=== PATIENT | male | born 1950 | race Caucasian/White ===

== ENCOUNTER 2018-06-08 09:59 | Emergency (ER) | payer MEDICARE ==
[2018-06-08 10:06] VITALS: TEMP 98
--- NOTE | 2018-06-08 10:37 | ED ---
General Adult HPI - General Chief complaint: Upper Respiratory Infection Stated complaint: bronchitis Time Seen by Provider: 06/08/18 10:25 Source: patient Mode of arrival: ambulatory Limitations: no limitations - History of Present Illness Initial comments: 68-year-old male with a history of COPD, hypertension, presents to the emergency department for a chief complaint of cough 3 weeks. Patient states the cough is productive. Patient states he feels as if it is bronchitis. He states he has seen his lung doctor 10 days ago he was told it was bronchitis and given steroids. Patient has also had 2 trials of Levaquin which have not helped. Patient denies any shortness of breath. He denies any chest pain. Patient states he has tried Mucinex at home as well without significant relief. Patient states that he just began coughing up blood-tinged sputum. He states he would like to make sure nothing else is wrong. Patient has no other complaints at this time including shortness of breath, chest pain, abdominal pain, nausea or vomiting, headache, or visual changes. - Related Data Home Medications Medication Instructions Recorded Confirmed predniSONE 5 mg PO PC-SUPPER 10/30/13 06/08/18 Albuterol Sulfate [Proair Hfa] 2 puff INHALATION RT-Q4H PRN 11/28/13 06/08/18 Tiotropium 18 Mcg/Puff [Spiriva] 1 cap INHALATION RT-DAILY 11/28/13 06/08/18 Budesonide-Formot 160-4.5 Mcg 2 puff INHALATION RT-BID 12/29/13 06/08/18 [Symbicort 160-4.5 Mcg Inhaler] Amoxicillin/Potassium Clav 1 tab PO Q12HR 06/08/18 06/08/18 [Augmentin 875-125 Tablet] amLODIPine BESYLATE 5 mg PO PC-SUPPER 06/08/18 06/08/18 Previous Rx's Medication Instructions Recorded Benzonatate [Tessalon Perles] 200 mg PO Q8H PRN #15 capsule 06/08/18 Allergies Allergy/AdvReac Type Severity Reaction Status Date / Time No Known Allergies Allergy Verified 06/08/18 10:27 Review of Systems ROS Statement: Those systems with pertinent positive or pertinent negative responses have been documented in the HPI. ROS Other: All systems not noted in ROS Statement are negative. Past Medical History Past Medical History: COPD, Hypertension, Respiratory Disorder Additional Past Medical History / Comment(s): HX RHEUMATIC FEVER AGE 8-NO PROBLEMS History of Any Multi-Drug Resistant Organisms: None Reported Past Surgical History: Heart Catheterization Additional Past Surgical History / Comment(s): Bilat cataracts Past Anesthesia/Blood Transfusion Reactions: No Reported Reaction Past Psychological History: No Psychological Hx Reported Smoking Status: Former smoker Past Alcohol Use History: Daily Past Drug Use History: None Reported - Past Family History Father Family Medical History: Cancer Mother Family Medical History: Cancer General Exam Limitations: no limitations General appearance: alert, in no apparent distress Head exam: Present: atraumatic, normocephalic, normal inspection Eye exam: Present: normal appearance, PERRL, EOMI. Absent: scleral icterus, conjunctival injection, periorbital swelling ENT exam: Present: normal exam, mucous membranes moist Neck exam: Present: normal inspection, full ROM. Absent: tenderness, meningismus, lymphadenopathy Respiratory exam: Present: decreased breath sounds (Diminished breath sounds bilaterally). Absent: wheezes, rales, rhonchi, stridor, accessory muscle use Cardiovascular Exam: Present: regular rate, normal rhythm, normal heart sounds. Absent: systolic murmur, diastolic murmur, rubs, gallop, clicks GI/Abdominal exam: Present: soft, normal bowel sounds. Absent: distended, tenderness, guarding, rebound, rigid Neurological exam: Present: alert, oriented X3, CN II-XII intact Psychiatric exam: Present: normal affect, normal mood Course Vital Signs 06/08/18 06/08/18 06/08/18 10:01 11:40 11:43 Temperature 98 F Pulse Rate 95 96 Respiratory 18 26 H Rate Blood Pressure 186/88 O2 Sat by Pulse 98 Oximetry 06/08/18 06/08/18 06/08/18 11:47 12:14 12:30 Temperature Pulse Rate 92 81 86 Respiratory 14 16 Rate Blood Pressure O2 Sat by Pulse 96 98 Oximetry 06/08/18 13:00 Temperature Pulse Rate 86 Respiratory 16 Rate Blood Pressure 152/78 O2 Sat by Pulse 95 Oximetry EKG Findings - EKG Comments: EKG Findings:: Normal sinus rhythm, ventricular rate 88, QRS ration 72, QTC [address] elevation or depression Medical Decision Making - Medical Decision Making 68-year-old male with a productive cough 3 weeks. Patient with 2 very minimal shortness of breath. He denies any chest pain. Patient does have a history of COPD. CBC shows a white count of 14.2 which is likely reactive. Lactic acid 1.2. Chest x-ray shows no acute cardiopulmonary process but does show changes associated with COPD. D-dimer 0.32. Pulmonary less than 0.012. Patient was given IV site Medrol which did apparently help with his cough. Patient has already had 2 doses of Levaquin and will not be started on an antibiotic. He is also already been on a steroid taper and is currently still taking prednisone , no significant wheezing noted at this time. 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 He will return here for any worsening symptoms. - Lab Data Result diagrams: 06/08/18 11:25 06/08/18 11:25 Lab Results 06/08/18 06/08/18 06/08/18 Range/Units 11:25 11:25 11:25 WBC 14.2 H (3.8-10.6) k/uL RBC 5.37 (4.30-5.90) m/uL Hgb 17.6 H (13.0-17.5) gm/dL Hct 51.9 (39.0-53.0) % MCV 96.6 (80.0-100.0) fL MCH 32.8 (25.0-35.0) pg MCHC 33.9 (31.0-37.0) g/dL RDW 13.7 (11.5-15.5) % Plt Count 179 (150-450) k/uL Neutrophils % 83 % Lymphocytes % 8 % Monocytes % 7 % Eosinophils % 1 % Basophils % 0 % Neutrophils # 11.8 H (1.3-7.7) k/uL Lymphocytes # 1.1 (1.0-4.8) k/uL Monocytes # 1.0 (0-1.0) k/uL Eosinophils # 0.2 (0-0.7) k/uL Basophils # 0.0 (0-0.2) k/uL PT (9.0-12.0) sec INR (<1.2) APTT (22.0-30.0) sec D-Dimer (<0.60) mg/L FEU Sodium 136 L (137-145) mmol/L Potassium 4.3 (3.5-5.1) mmol/L Chloride 99 (98-107) mmol/L Carbon Dioxide 28 (22-30) mmol/L Anion Gap 9 mmol/L BUN 12 (9-20) mg/dL Creatinine 0.55 L (0.66-1.25) mg/dL Est GFR (CKD-EPI)AfAm >90 (>60 ml/min/1.73 sqM) Est GFR (CKD-EPI)NonAf >90 (>60 ml/min/1.73 sqM) Glucose 98 (74-99) mg/dL Plasma Lactic Acid Keshawn (0.7-2.0) mmol/L Calcium 8.8 (8.4-10.2) mg/dL Magnesium 2.3 (1.6-2.3) mg/dL Total Bilirubin 1.3 (0.2-1.3) mg/dL AST 35 (17-59) U/L ALT 64 (21-72) U/L Alkaline Phosphatase 90 (38-126) U/L Total Creatine Kinase 74 (55-170) U/L CK-MB (CK-2) 1.4 (0.0-2.4) ng/mL CK-MB (CK-2) Rel Index 1.9 Troponin I <0.012 (0.000-0.034) ng/mL Total Protein 6.9 (6.3-8.2) g/dL Albumin 4.0 (3.5-5.0) g/dL 06/08/18 06/08/18 Range/Units 13:00 13:42 WBC (3.8-10.6) k/uL RBC (4.30-5.90) m/uL Hgb (13.0-17.5) gm/dL Hct (39.0-53.0) % MCV (80.0-100.0) fL MCH (25.0-35.0) pg MCHC (31.0-37.0) g/dL RDW (11.5-15.5) % Plt Count (150-450) k/uL Neutrophils % % Lymphocytes % % Monocytes % % Eosinophils % % Basophils % % Neutrophils # (1.3-7.7) k/uL Lymphocytes # (1.0-4.8) k/uL Monocytes # (0-1.0) k/uL Eosinophils # (0-0.7) k/uL Basophils # (0-0.2) k/uL PT 10.3 (9.0-12.0) sec INR 1.0 (<1.2) APTT 24.7 (22.0-30.0) sec D-Dimer 0.32 (<0.60) mg/L FEU Sodium (137-145) mmol/L Potassium (3.5-5.1) mmol/L Chloride (98-107) mmol/L Carbon Dioxide (22-30) mmol/L Anion Gap mmol/L BUN (9-20) mg/dL Creatinine (0.66-1.25) mg/dL Est GFR (CKD-EPI)AfAm (>60 ml/min/1.73 sqM) Est GFR (CKD-EPI)NonAf (>60 ml/min/1.73 sqM) Glucose (74-99) mg/dL Plasma Lactic Acid Keshawn 1.2 (0.7-2.0) mmol/L Calcium (8.4-10.2) mg/dL Magnesium (1.6-2.3) mg/dL Total Bilirubin (0.2-1.3) mg/dL AST (17-59) U/L ALT (21-72) U/L Alkaline Phosphatase (38-126) U/L Total Creatine Kinase (55-170) U/L CK-MB (CK-2) (0.0-2.4) ng/mL CK-MB (CK-2) Rel Index Troponin I (0.000-0.034) ng/mL Total Protein (6.3-8.2) g/dL Albumin (3.5-5.0) g/dL Disposition Clinical Impression: Cough Disposition: HOME SELF-CARE Condition: Good Instructions: Acute Bronchitis (ED), Chronic Bronchitis (ED) Additional Instructions: Please follow-up with your primary care provider or fairground operator in one to 2 days. Please return to the emergency department if you have any worsening symptoms. Prescriptions: Benzonatate [Tessalon Perles] 200 mg PO Q8H PRN #15 capsule PRN Reason: Cough Is patient prescribed a controlled substance at d/c from ED?: No Referrals: Christ Giles MD [Primary Care Provider] - 1-2 days Time of Disposition: 14:57
[2018-06-08] MEDS ORDERED: SODIUM CHLORIDE 0.9% 1,000 ML IV STA (10:48)
[2018-06-08] MEDS ORDERED: IPRATROPIUM-ALBUTEROL 3 ML NEB INHALATION STA (10:50)
[2018-06-08] MEDS ORDERED: methylPREDNISolone SOD SUCCI 125 MG/2 ML VIAL IV STA (10:50)
[2018-06-08 12:12] LABS: Basophils % (A) 0 %; Eosinophils # (A) 0.2 k/uL (0-0.7); Eosinophils % (A) 1 %; HCT 51.9 % (39.0-53.0); HGB 17.6 gm/dL (13.0-17.5); Lymphocytes # (A) 1.1 k/uL (1.0-4.8); Lymphocytes % (A) 8 %; MCH 32.8 pg (25.0-35.0); MCHC 33.9 g/dL (31.0-37.0); MCV 96.6 fL (80.0-100.0); Mean Platelet Volume 7.6; Monocytes % (A) 7 %; Neutrophils # (A) 11.8 k/uL (1.3-7.7); Neutrophils % (A) 83 %; Platelet Count 179 k/uL (150-450); RBC 5.37 m/uL (4.30-5.90); RDW 13.7 % (11.5-15.5); WBC 14.2 k/uL (3.8-10.6)
[2018-06-08 12:14] LABS: ALT 64 U/L (21-72); AST 35 U/L (17-59); Alkaline Phosphatase 90 U/L (38-126); Anion Gap 9 mmol/L; Blood Urea Nitrogen 12 mg/dL (9-20); Calcium 8.8 mg/dL (8.4-10.2); Carbon Dioxide 28 mmol/L (22-30); Chloride 99 mmol/L (98-107); Glucose 98 mg/dL (74-99); Magnesium 2.3 mg/dL (1.6-2.3); Potassium 4.3 mmol/L (3.5-5.1); Sodium 136 mmol/L (137-145); Total Bilirubin 1.3 mg/dL (0.2-1.3); Total Protein 6.9 g/dL (6.3-8.2)
[2018-06-08 12:31] LABS: Creatine Kinase 74 U/L (55-170)
[2018-06-08 12:42] LABS: Creatine Kinase MB 1.4 ng/mL (0.0-2.4)
--- NOTE | 2018-06-08 12:43 | XR ---
EXAMINATION TYPE: XR chest 2V DATE OF EXAM: 06/08/2018 COMPARISON: 06/08/2016 INDICATION: Chest pain, bronchitis TECHNIQUE: Frontal and lateral views of the chest are obtained. FINDINGS: The heart size is normal. The pulmonary vasculature is normal. The lungs are clear. There is hyperinflation flattening the diaphragms compatible COPD. IMPRESSION: 1. COPD. 2. No acute pulmonary process.
[2018-06-08 12:44] LABS: Troponin I <0.012 ng/mL (0.000-0.034)
[2018-06-08 14:06] LABS: D-Dimer 0.32 mg/L FEU (<0.60); Partial Thromboplastin Time 24.7 sec (22.0-30.0); Prothrombin Time 10.3 sec (9.0-12.0)
[2018-06-08 15:20] VITALS: BP 153/84; PULSE 87; RESP 14
== END 2018-06-08 15:25 | disposition home or self-care (01) ==
LOC: EC 09:59
DX: R05 Cough (principal); J44.9 Chronic obstructive pulmonary disease, unspecified; I10 Essential (primary) hypertension; Z79.51 Long term (current) use of inhaled steroids; Z79.899 Other long term (current) drug therapy; Z87.891 Personal history of nicotine dependence; Z95.5 Presence of coronary angioplasty implant and graft
CPT/HCPCS: 36415; 94640; 93005; 85379; 80053; 82550; 82553; 83605; 83735; 84484; 85025; 85610; 85730; 87040; 71046; 99284; 96374; 96361; J2930

== ENCOUNTER → 2018-08-27 | Outpatient (CLI) | payer MEDICARE ==
[2018-08-27 07:53] LABS: ALT 60 U/L (21-72); AST 32 U/L (17-59); Albumin 4.4 g/dL (3.5-5.0); Alkaline Phosphatase 87 U/L (38-126); Anion Gap 8 mmol/L; Blood Urea Nitrogen 14 mg/dL (9-20); Carbon Dioxide 30 mmol/L (22-30); Chloride 98 mmol/L (98-107); Cholesterol 181 mg/dL (<200); Glucose 116 mg/dL (74-99); Potassium 4.7 mmol/L (3.5-5.1); Sodium 136 mmol/L (137-145); Total Bilirubin 0.8 mg/dL (0.2-1.3); Total Protein 7.3 g/dL (6.3-8.2); Triglycerides 48 mg/dL (<150)
[2018-08-27 07:54] LABS: Basophils % (A) 0 %; Eosinophils # (A) 0.1 k/uL (0-0.7); Eosinophils % (A) 1 %; HCT 53.4 % (39.0-53.0); HGB 17.3 gm/dL (13.0-17.5); Lymphocytes # (A) 0.9 k/uL (1.0-4.8); Lymphocytes % (A) 8 %; MCH 31.5 pg (25.0-35.0); MCHC 32.4 g/dL (31.0-37.0); MCV 97.4 fL (80.0-100.0); Mean Platelet Volume 6.3; Monocytes # (A) 0.6 k/uL (0-1.0); Monocytes % (A) 6 %; Neutrophils # (A) 9.5 k/uL (1.3-7.7); Neutrophils % (A) 85 %; Platelet Count 195 k/uL (150-450); RBC 5.48 m/uL (4.30-5.90); RDW 13.4 % (11.5-15.5); WBC 11.1 k/uL (3.8-10.6)
[2018-08-27 09:18] LABS: LDL Cholesterol,Calculated 45 mg/dL (0-99)
[2018-08-27 09:19] LABS: HDL Cholesterol 126 mg/dL (40-60)
--- NOTE | 2018-08-27 11:49 | CT ---
EXAMINATION TYPE: CT chest w con DATE OF EXAM: 08/27/2018 COMPARISON: Prior CT 01/10/2014, chest x-ray 08/17/2018 HISTORY: Enlarged lymph nodes CT DLP: 536.1 mGycm Automated exposure control for dose reduction was used. CONTRAST: CT scan of the chest is performed with IV Contrast, patient injected with 100 mL of Isovue 300. FINDINGS: LUNGS: The lungs are grossly clear, there is no concerning parenchymal mass or nodule identified. Ex tensive centrilobular and paraseptal emphysematous changes are present There is no pleural effusion o r pneumothorax seen. The tracheobronchial tree is patent. MEDIASTINUM: There are no greater than 1 cm hilar or mediastinal lymph nodes. No pericardial effusi on is seen. Large epicardial fat pads are present. AORTA: No additional significant abnormality is seen. There are coronary artery calcifications prese nt. OTHER: Some dependent hyperdensity within the gallbladder may represent small stones. The liver show s low attenuation possibly due to hepatic steatosis. Cortical cyst present at the posterior aspect of the midpole the right kidney measures 2.7 cm IMPRESSION: Emphysema. Possible cholelithiasis. Coronary artery disease. Additional findings above.
== END | disposition home or self-care (01) ==
LOC: RADCTMAIN 07:22
PROVIDERS: ATTEND Internal Medicine
DX: J43.2 Centrilobular emphysema (principal); I25.10 Atherosclerotic heart disease of native coronary artery without angina pectoris; R59.0 Localized enlarged lymph nodes; J44.1 Chronic obstructive pulmonary disease with (acute) exacerbation; I10 Essential (primary) hypertension; R06.02 Shortness of breath
CPT/HCPCS: 84439; 80061; 80053; 84443; 85025; 71260; 36415; Q9967

== ENCOUNTER 2020-04-28 09:40 | Inpatient (IN) | payer MEDICARE ==
[2020-04-28] MEDS ORDERED: methylPREDNISolone SOD SUCCI 125 MG/2 ML VIAL IV STA (09:52)
[2020-04-28] MEDS ORDERED: IPRATROPIUM-ALBUTEROL 3 ML NEB INHALATION STA (09:52)
[2020-04-28] MEDS ORDERED: SODIUM CHLORIDE 0.9% 1,000 ML IV STA (09:52)
--- NOTE | 2020-04-28 09:55 | ED ---
General Adult HPI - General Chief complaint: Shortness of Breath Stated complaint: Dyspnea Time Seen by Provider: 04/28/20 09:47 Source: patient, RN notes reviewed Mode of arrival: ambulatory Limitations: no limitations - History of Present Illness Initial comments: Patient is a pleasant [age]-year-old male presenting to emergency Department with complaints of difficulty in breathing. Onset of symptoms was several days ago, but is getting worse. Patient has been on antibiotics. Patient does have cough with occasional green sputum. No fevers. Patient does have history of similar symptoms previously associated with COPD. No leg pain or leg swelling. - Related Data Home Medications Medication Instructions Recorded Confirmed predniSONE 5 mg PO PC-SUPPER 10/30/13 06/08/18 Albuterol Sulfate [Proair Hfa] 2 puff INHALATION RT-Q4H PRN 11/28/13 06/08/18 Tiotropium 18 Mcg/Puff [Spiriva] 1 cap INHALATION RT-DAILY 11/28/13 06/08/18 Budesonide-Formot 160-4.5 Mcg 2 puff INHALATION RT-BID 12/29/13 06/08/18 [Symbicort 160-4.5 Mcg Inhaler] Amoxicillin/Potassium Clav 1 tab PO Q12HR 06/08/18 06/08/18 [Augmentin 875-125 Tablet] amLODIPine BESYLATE 5 mg PO PC-SUPPER 06/08/18 06/08/18 Previous Rx's Medication Instructions Recorded Benzonatate [Tessalon Perles] 200 mg PO Q8H PRN #15 capsule 06/08/18 Allergies Allergy/AdvReac Type Severity Reaction Status Date / Time No Known Allergies Allergy Verified 04/28/20 09:45 Review of Systems ROS Statement: Those systems with pertinent positive or pertinent negative responses have been documented in the HPI. ROS Other: All systems not noted in ROS Statement are negative. Constitutional: Denies: fever, chills Eyes: Denies: eye pain ENT: Denies: ear pain Respiratory: Reports: cough, dyspnea Cardiovascular: Denies: chest pain Endocrine: Reports: fatigue Gastrointestinal: Denies: abdominal pain Genitourinary: Denies: dysuria Musculoskeletal: Denies: back pain Skin: Denies: rash Neurological: Denies: weakness Past Medical History Past Medical History: COPD, Hypertension, Respiratory Disorder Additional Past Medical History / Comment(s): HX RHEUMATIC FEVER AGE 8-NO PROBLEMS History of Any Multi-Drug Resistant Organisms: None Reported Past Surgical History: Heart Catheterization Additional Past Surgical History / Comment(s): Bilat cataracts Past Anesthesia/Blood Transfusion Reactions: No Reported Reaction Past Psychological History: No Psychological Hx Reported Smoking Status: Former smoker Past Alcohol Use History: Daily Past Drug Use History: None Reported - Past Family History Father Family Medical History: Cancer Mother Family Medical History: Cancer General Exam Limitations: no limitations General appearance: alert, in no apparent distress Head exam: Present: normocephalic Eye exam: Present: normal appearance Neck exam: Present: normal inspection Respiratory exam: Present: respiratory distress, accessory muscle use, decreased breath sounds Cardiovascular Exam: Present: regular rate, normal rhythm GI/Abdominal exam: Present: soft. Absent: tenderness Extremities exam: Present: normal inspection Neurological exam: Present: alert Psychiatric exam: Present: normal affect, normal mood Skin exam: Present: cyanosis Course Vital Signs 04/28/20 04/28/20 04/28/20 09:43 09:58 10:03 Temperature 97.8 F Pulse Rate 80 102 H Respiratory 24 26 H Rate Blood Pressure 167/85 O2 Sat by Pulse 78 L Oximetry 04/28/20 10:09 Temperature Pulse Rate 102 H Respiratory Rate Blood Pressure O2 Sat by Pulse Oximetry - Reevaluation(s) Reevaluation #1: 04/28/20 10:44 Patient does meet sepsis criteria diagnosed at 10:40 AM. Blood culture and lactic acid ordered. IV antibiotics will be ordered. EKG Findings - EKG Comments: EKG Findings:: Sinus tachycardia 104. [place] 1:30. QRS 68. QT 344. QTC 42. Normal axis. Normal QRS. No acute ST change. Medical Decision Making - Medical Decision Making Patient reevaluated and improved with BiPAP. Patient updated on results and plan. Dr. Giles has been paged. - Lab Data Result diagrams: 04/28/20 09:55 04/28/20 09:55 Lab Results 04/28/20 04/28/20 04/28/20 Range/Units 09:55 09:55 09:55 WBC 9.4 (3.8-10.6) k/uL RBC 5.37 (4.30-5.90) m/uL Hgb 16.7 (13.0-17.5) gm/dL Hct 51.7 (39.0-53.0) % MCV 96.3 (80.0-100.0) fL MCH 31.2 (25.0-35.0) pg MCHC 32.4 (31.0-37.0) g/dL RDW 14.4 (11.5-15.5) % Plt Count 156 (150-450) k/uL Neutrophils % 79 % Lymphocytes % 9 % Monocytes % 10 % Eosinophils % 1 % Basophils % 1 % Neutrophils # 7.4 (1.3-7.7) k/uL Lymphocytes # 0.8 L (1.0-4.8) k/uL Monocytes # 0.9 (0-1.0) k/uL Eosinophils # 0.1 (0-0.7) k/uL Basophils # 0.1 (0-0.2) k/uL PT 10.0 (9.0-12.0) sec INR 1.0 (<1.2) APTT 23.6 (22.0-30.0) sec Sodium 130 L (137-145) mmol/L Potassium 4.7 (3.5-5.1) mmol/L Chloride 95 L (98-107) mmol/L Carbon Dioxide 26 (22-30) mmol/L Anion Gap 9 mmol/L BUN 11 (9-20) mg/dL Creatinine 0.55 L (0.66-1.25) mg/dL Est GFR (CKD-EPI)AfAm >90 (>60 ml/min/1.73 sqM) Est GFR (CKD-EPI)NonAf >90 (>60 ml/min/1.73 sqM) Glucose 100 H (74-99) mg/dL Plasma Lactic Acid Keshawn (0.7-2.0) mmol/L Calcium 8.2 L (8.4-10.2) mg/dL Total Bilirubin 1.3 (0.2-1.3) mg/dL AST 40 (17-59) U/L ALT 28 (4-49) U/L Alkaline Phosphatase 74 (38-126) U/L Total Protein 6.6 (6.3-8.2) g/dL Albumin 3.7 (3.5-5.0) g/dL 04/28/20 Range/Units 09:55 WBC (3.8-10.6) k/uL RBC (4.30-5.90) m/uL Hgb (13.0-17.5) gm/dL Hct (39.0-53.0) % MCV (80.0-100.0) fL MCH (25.0-35.0) pg MCHC (31.0-37.0) g/dL RDW (11.5-15.5) % Plt Count (150-450) k/uL Neutrophils % % Lymphocytes % % Monocytes % % Eosinophils % % Basophils % % Neutrophils # (1.3-7.7) k/uL Lymphocytes # (1.0-4.8) k/uL Monocytes # (0-1.0) k/uL Eosinophils # (0-0.7) k/uL Basophils # (0-0.2) k/uL PT (9.0-12.0) sec INR (<1.2) APTT (22.0-30.0) sec Sodium (137-145) mmol/L Potassium (3.5-5.1) mmol/L Chloride (98-107) mmol/L Carbon Dioxide (22-30) mmol/L Anion Gap mmol/L BUN (9-20) mg/dL Creatinine (0.66-1.25) mg/dL Est GFR (CKD-EPI)AfAm (>60 ml/min/1.73 sqM) Est GFR (CKD-EPI)NonAf (>60 ml/min/1.73 sqM) Glucose (74-99) mg/dL Plasma Lactic Acid Keshawn 3.0 H* (0.7-2.0) mmol/L Calcium (8.4-10.2) mg/dL Total Bilirubin (0.2-1.3) mg/dL AST (17-59) U/L ALT (4-49) U/L Alkaline Phosphatase (38-126) U/L Total Protein (6.3-8.2) g/dL Albumin (3.5-5.0) g/dL - Radiology Data Radiology results: image reviewed (Chest x-ray shows COPD changes. Left greater than right basilar infiltrate) Critical Care Time Critical Care Time: Yes Total Critical Care Time: 32 Disposition Clinical Impression: Acute exacerbation of chronic obstructive pulmonary disease, Acute respiratory failure, Pneumonia, Sepsis Disposition: ADMITTED IP TO THIS HOSP Condition: Serious Is patient prescribed a controlled substance at d/c from ED?: No Referrals: Christ Giles MD [Primary Care Provider] - 1-2 days Decision Time: 10:44
[2020-04-28 10:23] LABS: Basophils # (A) 0.1 k/uL (0-0.2); Basophils % (A) 1 %; Eosinophils # (A) 0.1 k/uL (0-0.7); Eosinophils % (A) 1 %; HCT 51.7 % (39.0-53.0); HGB 16.7 gm/dL (13.0-17.5); Lymphocytes # (A) 0.8 k/uL (1.0-4.8); Lymphocytes % (A) 9 %; MCH 31.2 pg (25.0-35.0); MCHC 32.4 g/dL (31.0-37.0); MCV 96.3 fL (80.0-100.0); Mean Platelet Volume 6.9; Monocytes # (A) 0.9 k/uL (0-1.0); Monocytes % (A) 10 %; Neutrophils # (A) 7.4 k/uL (1.3-7.7); Neutrophils % (A) 79 %; Platelet Count 156 k/uL (150-450); RBC 5.37 m/uL (4.30-5.90); RDW 14.4 % (11.5-15.5); WBC 9.4 k/uL (3.8-10.6)
[2020-04-28 10:33] LABS: ALT 28 U/L (4-49); AST 40 U/L (17-59); African American GFR (CKD) >90 (>60 ml/min/1.73 sqM); Albumin 3.7 g/dL (3.5-5.0); Alkaline Phosphatase 74 U/L (38-126); Anion Gap 9 mmol/L; Blood Urea Nitrogen 11 mg/dL (9-20); Calcium 8.2 mg/dL (8.4-10.2); Carbon Dioxide 26 mmol/L (22-30); Chloride 95 mmol/L (98-107); Glucose 100 mg/dL (74-99); Non-African American GFR(CKD) >90 (>60 ml/min/1.73 sqM); Partial Thromboplastin Time 23.6 sec (22.0-30.0); Potassium 4.7 mmol/L (3.5-5.1); Sodium 130 mmol/L (137-145); Total Bilirubin 1.3 mg/dL (0.2-1.3); Total Protein 6.6 g/dL (6.3-8.2)
--- NOTE | 2020-04-28 10:33 | XR ---
EXAMINATION TYPE: XR chest 1V portable DATE OF EXAM: 04/28/2020 COMPARISON: CT chest August 17, 2018. Chest x-ray June 08, 2018. HISTORY: Dyspnea. TECHNIQUE: Single AP portable frontal upright view of the chest is obtained. FINDINGS: There is background chronic emphysematous rate with patchy left greater than right bibasil ar opacities. No pleural effusion or pneumothorax seen bilaterally. The cardiac silhouette size remai ns within normal limits. The osseous structures are intact. IMPRESSION: Background chronic emphysematous change with new left greater than right bibasilar acute infiltrate and/or atelectasis.
[2020-04-28] MEDS ORDERED: AZITHROMYCIN 500 MG in SODIUM CHLORIDE 0.9% 250 ML IVPB STA (10:46)
[2020-04-28] MEDS ORDERED: PNEUMONIA PROTOCOL UTILIZED 1 EACH MISC PO PRN (10:46)
[2020-04-28] MEDS ORDERED: IPRATROPIUM-ALBUTEROL 3 ML NEB INHALATION PRN (10:46)
[2020-04-28] MEDS ORDERED: SODIUM CHLORIDE 0.9% 1,000 ML IV SCH (11:00)
[2020-04-28] MEDS: methylPREDNISolone SOD SUCCI 125 MG/2 ML VIAL IV SCH ×3 (14:58→23:22)
[2020-04-28] MEDS: IPRATROPIUM-ALBUTEROL 3 ML NEB INHALATION SCH ×2 (15:36→15:39)
--- NOTE | 2020-04-28 16:13 | P.CNPUL ---
History of Present Illness Consult date: 04/28/20 Reason for consult: dyspnea, COPD History of present illness: 70-year-old male patient with advanced COPD with an FEV1 of 32% of predicted, maintained on accommodation Symbicort Spiriva and prednisone at 5 mg daily basis for COPD, comes in to the bathroom because of worsening shortness of breath. The patient has been getting worse over this past few days. He has received outpatient antibiotics without any benefits. He had also increased cough and congestion and sputum production that was greenish in nature. Chest x-ray is consistent with COPD. No exposure to coronavirus Covid 19. the white cell count is within normal limits. The patient has some mild lymphopenia. Neck he has level was at 3.0 at time of admission currently down to 1.7. Renal function is stable and within normal limits. Leg swelling. No pleurisy. No hemoptysis. Review of Systems Constitutional: Reports weight gain Eyes: denies as per HPI, denies blurred vision, denies bulging eye, denies decreased vision, denies diplopia, denies discharge, denies dry eye, denies irritation, denies itching, denies pain, denies photophobia, denies loss of peripheral vision, denies loss of vision, denies tunnel vision/blind spots Ears: deny: decreased hearing, ear discharge, earache, tinnitus Ears, nose, mouth and throat: Denies headache, Denies sore throat Breasts: absent: as per HPI, gynecomastia Cardiovascular: Reports decreased exercise tolerance, Reports dyspnea on exertion Respiratory: Reports cough with sputum, Reports dyspnea Gastrointestinal: Reports as per HPI Genitourinary: Reports as per HPI Musculoskeletal: Reports as per HPI Musculoskeletal: absent: ankle pain, ankle stiffness, ankle swelling Integumentary: Reports as per HPI Neurological: Reports as per HPI Psychiatric: Reports as per HPI Endocrine: Reports as per HPI Hematologic/Lymphatic: Reports as per HPI Allergic/Immunologic: Reports as per HPI Past Medical History Past Medical History: COPD, Hypertension, Respiratory Disorder Additional Past Medical History / Comment(s): HX RHEUMATIC FEVER AGE 8-NO PROBLEMS History of Any Multi-Drug Resistant Organisms: None Reported Past Surgical History: Heart Catheterization Additional Past Surgical History / Comment(s): Bilat cataracts Past Anesthesia/Blood Transfusion Reactions: No Reported Reaction Past Psychological History: No Psychological Hx Reported Smoking Status: Former smoker Past Alcohol Use History: Daily Past Drug Use History: None Reported - Past Family History Father Family Medical History: Cancer Additional Family Medical History / Comment(s): liver cancer-pt did not speak to father much. Mother Family Medical History: Cancer Additional Family Medical History / Comment(s): Lung cancer Medications and Allergies Home Medications Medication Instructions Recorded Confirmed Type predniSONE 10 mg PO PC-SUPPER 10/30/13 04/28/20 History Albuterol Sulfate [Proair Hfa] 2 puff INHALATION RT-Q4H PRN 11/28/13 04/28/20 History Tiotropium 18 Mcg/Puff [Spiriva] 1 cap INHALATION RT-DAILY 11/28/13 04/28/20 History Budesonide-Formot 160-4.5 Mcg 2 puff INHALATION RT-BID 12/29/13 04/28/20 History [Symbicort 160-4.5 Mcg Inhaler] amLODIPine BESYLATE 5 mg PO PC-SUPPER 06/08/18 04/28/20 History Azithromycin [Zithromax] 250 mg PO MOWEFR 04/28/20 04/28/20 History Allergies Allergy/AdvReac Type Severity Reaction Status Date / Time No Known Allergies Allergy Verified 04/28/20 11:03 Physical Exam Vitals: Vital Signs Temp Pulse Resp BP BP Pulse Ox 04/28/20 15:47 84 04/28/20 15:41 83 04/28/20 13:15 98.1 F 86 14 118/87 99 04/28/20 12:00 98.1 F 22 117/86 98 04/28/20 11:21 92 13 136/86 100 04/28/20 10:09 102 H 04/28/20 10:03 26 H 04/28/20 09:58 102 H 04/28/20 09:43 97.8 F 80 24 167/85 78 L Intake and Output 04/28/20 04/28/20 04/28/20 06:59 14:59 22:59 Other: Weight 99.79 kg Patient is obese, comfortable not in acute respiratory distress and the patient is not using accessory muscles of breathing Head exam was generally normal. There was no scleral icterus or corneal arcus. Mucous membranes were moist. Neck was supple and without jugular venous distension, thyromegaly, or carotid bruits. Carotids were easily palpable bilaterally. There was no adenopathy. The patient is a Mallampati class IV. Lungs sounds are diminished and the patient has diffuse expiratory wheezes throughout the lung hernández bilaterally and prolongation of exhalation phase of breathing Cardiac exam revealed the PMI to be normally situated and sized. The rhythm was regular and no extrasystoles were noted during several minutes of auscultation. The first and second heart sounds were normal and physiologic splitting of the s econd heart sound was noted. There were no murmurs, rubs, clicks, or gallops. Abdominal exam revealed normal bowel sounds. The abdomen was soft, non-tender, and without masses, organomegaly, or appreciable enlargement of the abdominal aorta. Examination of the extremities revealed easily palpable radial, femoral and pedal pulses. There was no cyanosis, clubbing or edema. Examination of the skin revealed no evidence of significant rashes, suspicious appearing nevi or other concerning lesions. Neurologically, the patient is awake and alert and the patient does not have any focal neurological deficit. Cranial nerves are essentially intact. Results - Laboratory Findings CBC and BMP: 04/28/20 09:55 04/28/20 09:55 PT/INR, D-dimer PT 10.0 sec (9.0-12.0) 04/28/20 09:55 INR 1.0 (<1.2) 04/28/20 09:55 Abnormal lab findings: Abnormal Labs 04/28/20 04/28/20 04/28/20 09:55 09:55 09:55 Lymphocytes # 0.8 L Sodium 130 L Chloride 95 L Creatinine 0.55 L Glucose 100 H Plasma Lactic Acid Keshawn 3.0 H* Calcium 8.2 L - Diagnostic Findings Chest x-ray: image reviewed Assessment and Plan Plan: 1 acute COPD exacerbation. Consider underlying bronchitis and there is no clear indication of pneumonia on today's chest x-ray. The patient was also screened for coronavirus Covid 19 infection. 2 advanced COPD with FEV1 of 32% of predicted and the patient is maintained on a combination of Symbicort Spiriva and prednisone on outpatient basis. 3 obesity 4 hypertension 5 mild CAD with mild pulmonary hypertension based on echocardiogram that was done on 12/29/2013 6 mild lactic acidosis, improving Plan Check this patient for coronavirus Covid 19 nasal swab by PCR Optimize COPD with a combination of DuoNeb neb last treatment [id number], IV Solu Medrol and cover the patient with empiric antibiotic coverage with a combination of Rocephin and Zithromax Obtain sputum Gram stain and culture Chest x-ray was reviewed Heparin subcu for DVT prophylaxis BiPAP overnight to optimize her respiratory status if needed at a pressure of 10/5 We'll continue to follow make further recommendations based on his progress.
[2020-04-28] MEDS: HEPARIN SODIUM,PORCINE 5,000 UNIT/ML 1 ML VIAL SQ SCH ×2 (17:48→23:22)
[2020-04-28 19:50] LABS: Glucose,Whole Blood 155 mg/dL (75-99)
[2020-04-28] MEDS ORDERED: ALBUTEROL HFA INHALER INHALATION PRN (20:02)
[2020-04-28] MEDS: INSULIN ASPART (NovoLOG) 100 UNIT/ML VIAL SQ SCH (20:08)
[2020-04-28] MEDS: ALBUTEROL HFA INHALER INHALATION SCH (20:12)
[2020-04-29 06:04] LABS: Glucose,Whole Blood 146 mg/dL (75-99)
[2020-04-29] MEDS: methylPREDNISolone SOD SUCCI 125 MG/2 ML VIAL IV SCH ×4 (06:06→23:10)
[2020-04-29] MEDS: INSULIN ASPART (NovoLOG) 100 UNIT/ML VIAL SQ SCH ×4 (06:06→22:33)
--- NOTE | 2020-04-29 08:10 | XR ---
EXAMINATION TYPE: XR chest 1V portable DATE OF EXAM: 04/29/2020 CLINICAL HISTORY: Difficulty breathing and pneumonia progress study. TECHNIQUE: Single AP portable upright view of the chest is obtained. COMPARISON: Chest x-ray from one day earlier. CT chest August 27, 2018 FINDINGS: There is background chronic emphysematous change with persistent bibasilar opacities. No p leural effusion or pneumothorax seen bilaterally. The cardiac silhouette size remains within normal l imits. The osseous structures are intact. IMPRESSION: Bibasilar acute infiltrate and/or atelectasis redemonstrated. No significant change from one day earlier.
[2020-04-29] MEDS: AZITHROMYCIN 500 MG TAB PO SCH (09:06)
[2020-04-29] MEDS: HEPARIN SODIUM,PORCINE 5,000 UNIT/ML 1 ML VIAL SQ SCH ×3 (09:06→23:10)
[2020-04-29] MEDS: ALBUTEROL HFA INHALER INHALATION SCH ×4 (09:45→16:58)
[2020-04-29 11:47] LABS: Glucose,Whole Blood 136 mg/dL (75-99)
[2020-04-29] MEDS: TIOTROPIUM 18 MCG/PUFF INHALER INHALATION SCH (12:52)
--- NOTE | 2020-04-29 13:08 | P.PN ---
Subjective Progress Note Date: 04/29/202019, the patient is feeling better and less short of breath compared to yesterday. Awaiting the toney virus Covid 19 testing by PCR. Meanwhile, the patient is feeling better in terms of his COPD exacerbation treatment with a combination of bronchodilators and steroids. No chest pain. No other new complaints otherwise for now. No hemoptysis. No pleurisy. He remains on a combination of Rocephin and Zithromax. He remains on IV Solu Medrol 60 mg every 6 hours. Objective - Vital Signs Vital signs: Vital Signs Temp 97.6 F 04/29/20 09:00 Pulse 82 04/29/20 09:00 Resp 18 04/29/20 09:00 BP 135/79 04/29/20 09:00 Pulse Ox 96 04/29/20 09:00 Intake & Output 04/28/20 04/29/20 04/29/20 18:59 06:59 18:59 Intake Total 300 480 Balance 300 480 Weight 99.79 kg 100.4 kg Intake: Oral 300 480 Other: # Voids 1 - Exam Patient is obese, comfortable not in acute respiratory distress and the patient is not using accessory muscles of breathing Head exam was generally normal. There was no scleral icterus or corneal arcus. Mucous membranes were moist. Neck was supple and without jugular venous distension, thyromegaly, or carotid bruits. Carotids were easily palpable bilaterally. There was no adenopathy. The patient is a Mallampati class IV. Lungs sounds are diminished and the patient has diffuse expiratory wheezes throughout the lung hernández bilaterally and prolongation of exhalation phase of breathing Cardiac exam revealed the PMI to be normally situated and sized. The rhythm was regular and no extrasystoles were noted during several minutes of auscultation. The first and second heart sounds were normal and physiologic splitting of the second heart sound was noted. There were no murmurs, rubs, clicks, or gallops. Abdominal exam revealed normal bowel sounds. The abdomen was soft, non-tender, and without masses, organomegaly, or appreciable enlargement of the abdominal aorta. Examination of the extremities revealed easily palpable radial, femoral and pedal pulses. There was no cyanosis, clubbing or edema. Examination of the skin revealed no evidence of significant rashes, suspicious appearing nevi or other concerning lesions. Neurologically, the patient is awake and alert and the patient does not have any focal neurological deficit. Cranial nerves are essentially intact. - Labs CBC & Chem 7: 04/28/20 09:55 04/28/20 09:55 Labs: Abnormal Lab Results - Last 24 Hours (Table) 04/28/20 04/29/20 04/29/20 Range/Units 19:48 06:03 11:45 POC Glucose (mg/dL) 155 H 146 H 136 H (75-99) mg/dL Microbiology - Last 24 Hours (Table) 04/28/20 09:55 Blood Culture - Preliminary Blood No Growth after 24 hours Assessment and Plan Plan: 1 acute COPD exacerbation. Consider underlying bronchitis and there is no clear indication of pneumonia on today's chest x-ray. The patient was also screened for coronavirus Covid 19 infection. 2 advanced COPD with FEV1 of 32% of predicted and the patient is maintained on a combination of Symbicort Spiriva and prednisone on outpatient basis. 3 obesity 4 hypertension 5 mild CAD with mild pulmonary hypertension based on echocardiogram that was done on 12/29/2013 6 mild lactic acidosis, improving Plan Check this patient for coronavirus Covid 19 nasal swab by PCR, the results are still pending for now Optimize COPD with a combination of DuoNeb neb last treatment [id number], IV Solu Medrol and cover the patient with empiric antibiotic coverage with a combination of Rocephin and Zithromax No need for BiPAP at this point in time We'll continue to follow make further recommendations based on his progress.
--- NOTE | 2020-04-29 14:35 | P.HPIM ---
History of Present Illness This is a pleasant 70 years old male with past medical history of COPD and hypertension, is a patient of Dr. Powell who is his photo retoucher and primary care doctor. Presents with days of progressive dyspnea and cough with green ph legm. Denies chest pain. No myalgia or arthralgia. On the presentation he is afebrile, tachycardic at 102, tachypneic and 26, saturating 100% on BiPAP, he was saturating 65% and 3 L oxygen via nasal cannula CBC is unremarkable, he has leukopenia of 0.8, however this is a chronic. Sodium is 1:30, creatinine is normal 0.5, elevated lactic acid 3.0 came back to normal at 1.7, liver enzymes not elevated. Troponin is negative at less than 0.012. Chest x-ray:L chronic emphysematous change with a new left greater than right basilar acute infiltrate and/or atelectasis EKG showing sinus tachycardia at [address]-T changes. In the emergency room he was started on Zithromax and ceftriaxone Review of Systems CONSTITUTIONAL: No fever, no malaise, no fatigue. HEENT: No recent visual problems or hearing problems. Denied any sore throat. CARDIOVASCULAR: No orthopnea, PND, no palpitations, no syncope. PULMONARY: No chest wall tenderness, no hemoptysis. GASTROINTESTINAL: No diarrhea, no nausea, no vomiting, no abdominal pain. Normoactive bowel sounds. NEUROLOGICAL: No headaches, no weakness, no numbness. HEMATOLOGICAL: Denies any bleeding or petechiae. GENITOURINARY: Denies any burning micturition, frequency, or urgency. MUSCULOSKELETAL/RHEUMATOLOGICAL: Denies any joint pain, swelling, or any muscle pain. ENDOCRINE: Denies any polyuria or polydipsia. Past Medical History Past Medical History: COPD, Hypertension, Respiratory Disorder Additional Past Medical History / Comment(s): HX RHEUMATIC FEVER AGE 8-NO PROBLEMS History of Any Multi-Drug Resistant Organisms: None Reported Past Surgical History: Heart Catheterization Additional Past Surgical History / Comment(s): Bilat cataracts Past Anesthesia/Blood Transfusion Reactions: No Reported Reaction Past Psychological History: No Psychological Hx Reported Smoking Status: Former smoker Past Alcohol Use History: Daily Past Drug Use History: None Reported - Past Family History Father Family Medical History: Cancer Mother Family Medical History: Cancer Medications and Allergies Home Medications Medication Instructions Recorded Confirmed Type predniSONE 10 mg PO PC-SUPPER 10/30/13 04/28/20 History Albuterol Sulfate [Proair Hfa] 2 puff INHALATION RT-Q4H PRN 11/28/13 04/28/20 History Tiotropium 18 Mcg/Puff [Spiriva] 1 cap INHALATION RT-DAILY 11/28/13 04/28/20 History Budesonide-Formot 160-4.5 Mcg 2 puff INHALATION RT-BID 12/29/13 04/28/20 History [Symbicort 160-4.5 Mcg Inhaler] amLODIPine BESYLATE 5 mg PO PC-SUPPER 06/08/18 04/28/20 History Azithromycin [Zithromax] 250 mg PO MOWEFR 04/28/20 04/28/20 History Allergies Allergy/AdvReac Type Severity Reaction Status Date / Time No Known Allergies Allergy Verified 04/28/20 11:03 Physical Exam Vitals: Vital Signs Temp Pulse Resp BP Pulse Ox 04/28/20 11:21 92 13 136/86 100 04/28/20 10:09 102 H 04/28/20 10:03 26 H 04/28/20 09:58 102 H 04/28/20 09:43 97.8 F 80 24 167/85 78 L Intake and Output 04/27/20 04/28/20 04/28/20 22:59 06:59 14:59 Other: Weight 99.79 kg GENERAL: The patient is alert and oriented x3, not in any acute distress. Well developed, well nourished. HEENT: Pupils are round and equally reacting to light. EOMI. No scleral icterus. No conjunctival pallor. Normocephalic, atraumatic. No pharyngeal erythema. No thyromegaly. CARDIOVASCULAR: S1 and S2 present. No murmurs, rubs, or gallops. -PULMONARY: Chest is clear to auscultation, bilateral expiratory wheezing with decreased air entry on both sides ABDOMEN: Soft, nontender, nondistended, normoactive bowel sounds. No palpable organomegaly. MUSCULOSKELETAL: No joint swelling or deformity. EXTREMITIES: No cyanosis, clubbing, or pedal edema. NEUROLOGICAL: Gross neurological examination did not reveal any focal deficits. SKIN: No rashes. No petechiae Results CBC & Chem 7: 04/28/20 09:55 10/30/20 09:55 Labs: Abnormal Lab Results - Last 24 Hours (Table) 04/28/20 04/28/20 04/28/20 Range/Units 09:55 09:55 09:55 Lymphocytes # 0.8 L (1.0-4.8) k/uL Sodium 130 L (137-145) mmol/L Chloride 95 L (98-107) mmol/L Creatinine 0.55 L (0.66-1.25) mg/dL Glucose 100 H (74-99) mg/dL Plasma Lactic Acid Keshawn 3.0 H* (0.7-2.0) mmol/L Calcium 8.2 L (8.4-10.2) mg/dL Assessment and Plan Assessment: Acute COPD exacerbation with possible pneumonia Possible bilateral basilar opacity, suspicious for pneumonia versus atelectasis acute hypoxic respiratory failure Hypertension Plan: This is a pleasant 70 years old male who presents with acute COPD, pulmonary consult, bronchodilator, steroids and oxygen as needed. Labs and medication were reviewed.. Continue same treatment. Continue with symptomatic treatment. Resume home medication. Monitor lytes and vitals. DVT and GI prophylaxis. Further recommendations depends on the clinical course of the patient DVT prophylaxis: Subcutaneous heparin GI Prophylaxis: Pepcid
[2020-04-29 16:50] LABS: Glucose,Whole Blood 108 mg/dL (75-99)
[2020-04-29] MEDS: amLODIPine 5 MG TAB PO SCH (17:41)
[2020-04-29] MEDS ORDERED: BUDESONIDE 0.5 MG/2 ML NEBU INHALATION SCH (20:00)
[2020-04-29] MEDS ORDERED: FLUTICASONE 110 MCG INHALER INHALATION SCH (20:00)
[2020-04-29] MEDS: SYMBICORT 160-4.5 MCG INHALER INHALATION SCH (20:10)
[2020-04-29] MEDS ORDERED: ALBUTEROL HFA INHALER INHALATION PRN (20:12)
[2020-04-29 20:48] LABS: Glucose,Whole Blood 133 mg/dL (75-99)
[2020-04-30] MEDS: methylPREDNISolone SOD SUCCI 125 MG/2 ML VIAL IV SCH (06:06)
[2020-04-30] MEDS: INSULIN ASPART (NovoLOG) 100 UNIT/ML VIAL SQ SCH ×2 (06:06→12:17)
[2020-04-30 06:23] LABS: Glucose,Whole Blood 129 mg/dL (75-99)
[2020-04-30 07:37] LABS: Basophils % (A) 0 %; Eosinophils % (A) 0 %; HCT 50.6 % (39.0-53.0); HGB 16.6 gm/dL (13.0-17.5); Lymphocytes # (A) 0.3 k/uL (1.0-4.8); Lymphocytes % (A) 2 %; MCH 31.7 pg (25.0-35.0); MCHC 32.7 g/dL (31.0-37.0); MCV 96.8 fL (80.0-100.0); Mean Platelet Volume 7.2; Monocytes # (A) 0.7 k/uL (0-1.0); Monocytes % (A) 5 %; Neutrophils # (A) 13.7 k/uL (1.3-7.7); Neutrophils % (A) 92 %; Platelet Count 188 k/uL (150-450); RBC 5.23 m/uL (4.30-5.90); WBC 14.8 k/uL (3.8-10.6)
[2020-04-30 07:48] LABS: African American GFR (CKD) >90 (>60 ml/min/1.73 sqM); Anion Gap 8 mmol/L; Blood Urea Nitrogen 21 mg/dL (9-20); Calcium 8.3 mg/dL (8.4-10.2); Carbon Dioxide 28 mmol/L (22-30); Chloride 94 mmol/L (98-107); Glucose 136 mg/dL (74-99); Non-African American GFR(CKD) >90 (>60 ml/min/1.73 sqM); Potassium 4.2 mmol/L (3.5-5.1); Sodium 130 mmol/L (137-145)
[2020-04-30] MEDS: SYMBICORT 160-4.5 MCG INHALER INHALATION SCH (09:14)
[2020-04-30] MEDS: TIOTROPIUM 18 MCG/PUFF INHALER INHALATION SCH (09:14)
[2020-04-30] MEDS ORDERED: predniSONE 20 MG TAB PO SCH (10:15)
[2020-04-30] MEDS: AZITHROMYCIN 500 MG TAB PO SCH (10:22)
[2020-04-30] MEDS: HEPARIN SODIUM,PORCINE 5,000 UNIT/ML 1 ML VIAL SQ SCH ×2 (10:22→12:17)
--- NOTE | 2020-04-30 10:56 | P.PN ---
Subjective Progress Note Date: 04/29/20 Principal diagnosis: Acute COPD exacerbation This is a pleasant 70 years old male with past medical history of COPD and hypertension, is a patient of Dr. Powell who is his spanish medical interpreter and primary care doctor. Presents with days of progressive dyspnea and cough with green phlegm. Denies chest pain. No myalgia or arthralgia. On the presentation he is afebrile, tachycardic at 102, tachypneic and 26, saturating 100% on BiPAP, he was saturating 65% and 3 L oxygen via nasal cannula CBC is unremarkable, he has leukopenia of 0.8, however this is a chronic. Sodium is 1:30, creatinine is normal 0.5, elevated lactic acid 3.0 came back to normal at 1.7, liver enzymes not elevated. Troponin is negative at less than 0.012. Chest x-ray:L chronic emphysematous change with a new left greater than right basilar acute infiltrate and/or atelectasis EKG showing sinus tachycardia at [address]-T changes. In the emergency room he was started on Zithromax and ceftriaxone 04/29/2020 Patient is currently sitting on the side of the bed comfortably. Still having exertional dyspnea and expiratory wheezing on examination. No complaints of chest pain. Cough and sputum production is improving. Patient is being continued on Solu-Medrol and written treatments along with antibiotics in the form of ceftriaxone and azithromycin. Continue with oxygen therapy. Pulmonary is following. Patient has been afebrile. Denied any complaints of chest pain. No nausea vomiting or abdominal pain or diarrhea. All other review of systems negative except the above Current medications reviewed. Objective - Vital Signs Vital signs: Vital Signs Temp 98 F 04/29/20 19:45 Pulse 68 04/29/20 19:45 Resp 18 04/29/20 19:45 BP 134/77 04/29/20 19:45 Pulse Ox 95 04/29/20 19:45 Intake & Output 04/29/20 04/29/20 04/30/20 06:59 18:59 05:59 Intake Total 840 Balance 840 Weight 100.4 kg Intake: Oral 840 Other: # Voids 1 - Exam PHYSICAL EXAMINATION: Patient is lying in the bed comfortably, no acute distress, awake alert and oriented.. HEENT: Normocephalic. Neck is supple. Pupils reactive. Nostrils clear. Oral cavity is moist. Ears reveal no drainage. Neck reveals no JVD, carotid bruits, or thyromegaly. CHEST EXAMINATION: Trachea is central. Symmetrical expansion. Bilateral diffuse expiratory wheezing and scattered rhonchi. CARDIAC: Normal S1, S2 with no gallops. No murmurs ABDOMEN: Soft. Bowel sounds normal. No organomegaly. No abdominal bruits. Extremities: reveal no edema. No clubbing or cyanosis Neurologically awake, alert, oriented x3 with well-coordinated movements. No focal deficits noted Skin: No rash or skin lesions. Psychiatric: Coperative. Nonsuicidal Musculoskeletal: No joint swelling or deformity. Normal range of motion. - Labs CBC & Chem 7: 04/30/20 06:39 04/30/20 06:39 Labs: Abnormal Lab Results - Last 24 Hours (Table) 04/29/20 04/29/20 04/29/20 Range/Units 06:03 11:45 16:48 POC Glucose (mg/dL) 146 H 136 H 108 H (75-99) mg/dL 04/29/20 Range/Units 20:20 POC Glucose (mg/dL) 133 H (75-99) mg/dL Microbiology - Last 24 Hours (Table) 04/29/20 12:56 Sputum Culture - Preliminary Sputum 04/28/20 09:55 Blood Culture - Preliminary Blood No Growth after 24 hours Assessment and Plan Assessment: Acute COPD exacerbation with possible pneumonia Possible bilateral basilar opacity, suspicious for pneumonia versus atelectasis acute hypoxic respiratory failure and was on BiPAP on admission. Advanced COPD with FEV1 of 32% of predicted. Hypertension DVT prophylaxis with heparin subcu Plan: Patient be continued on oxygen therapy, methylprednisolone and antibodies in the form of ceftriaxone and azithromycin. Continue with albuterol and long-acting antimuscarinic agents. Continue Symbicort and follow closely. Pulmonary is on board. Anticipate discharge in next 24 hours with more improvement.
[2020-04-30 11:33] LABS: Glucose,Whole Blood 109 mg/dL (75-99)
[2020-04-30 11:49] VITALS: BP 162/88; PULSE 77; RESP 15; TEMP 97.9
[2020-04-30] MEDS: amLODIPine 5 MG TAB PO SCH (12:17)
--- NOTE | 2020-04-30 13:13 | P.PN ---
Subjective Progress Note Date: 04/30/20 70-year-old male patient admitted to the hospital for an acute COPD exacerbation. The patient is much improved for now. Is not having any major respiratory difficulties. He thinks that he is back to his baseline. He is maintained on a combination of respiratory event and Symbicort on outpatient basis and the patient follows up in our office in regards to COPD. He'll be completing a course of prednisone burst taper course of Zithromax on outpatient basis. No chest pain. No fever. No chills.: The coronavirus covid 19 testing was done and the results are still pending for now. Nevertheless, the we had a low suspicion for coronary risk overnight and infection this patient. Objective - Vital Signs Vital signs: Vital Signs Temp 97.9 F 04/30/20 08:00 Pulse 77 04/30/20 08:00 Resp 15 04/30/20 08:00 BP 162/88 04/30/20 08:00 Pulse Ox 93 L 04/30/20 08:00 Intake & Output 04/29/20 04/30/20 04/30/20 19:59 06:59 18:59 Intake Total 540 Balance 540 Weight Intake: Oral 540 Other: # Voids 1 - Exam Patient is obese, comfortable not in acute respiratory distress and the patient is not using accessory muscles of breathing Head exam was generally normal. There was no scleral icterus or corneal arcus. Mucous membranes were moist. Neck was supple and without jugular venous distension, thyromegaly, or carotid bruits. Carotids were easily palpable bilaterally. There was no adenopathy. The patient is a Mallampati class IV. Lungs sounds are diminished and the patient has diffuse expiratory wheezes throughout the lung hernández bilaterally and prolongation of exhalation phase of breathing Cardiac exam revealed the PMI to be normally situated and sized. The rhythm was regular and no extrasystoles were noted during several minutes of auscultation. The first and second heart sounds were normal and physiologic splitting of the second heart sound was noted. There were no murmurs, rubs, clicks, or gallops. Abdominal exam revealed normal bowel sounds. The abdomen was soft, non-tender, and without masses, organomegaly, or appreciable enlargement of the abdominal aorta. Examination of the extremities revealed easily palpable radial, femoral and pedal pulses. There was no cyanosis, clubbing or edema. Examination of the skin revealed no evidence of significant rashes, suspicious appearing nevi or other concerning lesions. Neurologically, the patient is awake and alert and the patient does not have any focal neurological deficit. Cranial nerves are essentially intact. - Labs CBC & Chem 7: 04/30/20 06:39 04/30/20 06:39 Labs: Abnormal Lab Results - Last 24 Hours (Table) 04/29/20 04/29/20 04/30/20 Range/Units 16:48 20:20 06:06 WBC (3.8-10.6) k/uL Neutrophils # (1.3-7.7) k/uL Lymphocytes # (1.0-4.8) k/uL Sodium (137-145) mmol/L Chloride (98-107) mmol/L BUN (9-20) mg/dL Creatinine (0.66-1.25) mg/dL Glucose (74-99) mg/dL POC Glucose (mg/dL) 108 H 133 H 129 H (75-99) mg/dL Calcium (8.4-10.2) mg/dL 04/30/20 04/30/20 04/30/20 Range/Units 06:39 06:39 11:32 WBC 14.8 H (3.8-10.6) k/uL Neutrophils # 13.7 H (1.3-7.7) k/uL Lymphocytes # 0.3 L (1.0-4.8) k/uL Sodium 130 L (137-145) mmol/L Chloride 94 L (98-107) mmol/L BUN 21 H (9-20) mg/dL Creatinine 0.64 L (0.66-1.25) mg/dL Glucose 136 H (74-99) mg/dL POC Glucose (mg/dL) 109 H (75-99) mg/dL Calcium 8.3 L (8.4-10.2) mg/dL Microbiology - Last 24 Hours (Table) 04/28/20 09:55 Blood Culture - Preliminary Blood No Growth after 48 hours 04/29/20 12:56 Gram Stain - Preliminary Sputum Sputum Culture - Preliminary Assessment and Plan Plan: 1 acute COPD exacerbation. Consider underlying bronchitis and there is no clear indication of pneumonia on today's chest x-ray. The patient was also screened for coronavirus Covid 19 infection. 2 advanced COPD with FEV1 of 32% of predicted and the patient is maintained on a combination of Symbicort Spiriva and prednisone on outpatient basis. 3 obesity 4 hypertension 5 mild CAD with mild pulmonary hypertension based on echocardiogram that was done on 12/29/2013 6 mild lactic acidosis, improving Plan Check this patient for coronavirus Covid 19 nasal swab by PCR, the results are still pending for now Meanwhile, the patient can be discharged home on a course of Z-Ricardo and a prednisone burst taper starting with 40 mg to be tapered by 10 g every 4 days. Outpatient medications will be resumed and Change Which Included a Combination of Spiriva and Symbicort. We'll up with Us in the Office. Continue the DuoNeb Nebulized Treatment [facility] As Needed. If the Covid 19 testing is positive, the patient will be contacted back.
--- NOTE | 2020-05-02 06:44 | CDI ---
Documentation Clarification Form Date: 05/02/2020 06:28:00 AM From: Samantha Marin Phone: If you have a question about this query, please contact Belle Reddy Packaging Inspector at [phone] between 8am and 5pm. Admit Date: 04/28/2020 10:47:00 AM Patient Name: Franco Duque Visit Number: [id number] Discharge Date: 04/30/2020 12:39:00 PM ATTENTION: The Clinical Documentation Specialists (CDI) and [facility] Coding Staff appreciate your assistance in clarifying documentation. Please respond to the clarification below the line at the bottom and electronically sign. The CDI & [facility] Coding staff will review the response and follow-up if needed. Please note: Queries are made part of the Legal Health Record. If you have any questions, please contact the author of this message via ITS. Dr. Joanna Bernabe Patient's Covid serology was pending at time of discharge. Patients serology came back as detected for Coronovirus. Please clarify if patient had Coronovirus, pneumonia and sepsis as documented in the ED report. Patient history/risk factors: history of smoking, COPD exacerbation, CAD, HTN Clinical Indicators: Patient is 78% on RA CXR: right infiltrate Lactic acid: 3. Viral Panel: Detected Coronovirus Vital Signs: 97.8 F, 80 bpm, 24, 167/85, 78% RA Treatment:bronchodilator, steroids and oxygen as needed. Consult: pulmonary consult dUOnEB IV solumedrol Rocephin and Zithromax In order to capture the severity of condition, please clarify if the above treatment/clinical indicators signify: COVID-19 with pneumonia and sepsis COVID-19 ruled out COVID-19 confirmed with pneumonia no sepsis Covid confirmed without pneumonia and sepsis Other, please specify Unable to determine not my documentation MTDD
--- NOTE | 2020-05-10 05:45 | CDI ---
Documentation Clarification Form Date: 05/02/2020 06:28:00 AM From: Samantha Marin Phone: If you have a question about this query, please contact Belle Reddy Food And Beverage Checker at [phone] between 8am and 5pm. Admit Date: 04/28/2020 10:47:00 AM Patient Name: Franco Duque Visit Number: [id number] Discharge Date: 04/30/2020 12:39:00 PM ATTENTION: The Clinical Documentation Specialists (CDI) and [facility] Coding Staff appreciate your assistance in clarifying documentation. Please respond to the clarification below the line at the bottom and electronically sign. The CDI & [facility] Coding staff will review the response and follow-up if needed. Please note: Queries are made part of the Legal Health Record. If you have any questions, please contact the author of this message via ITS. Dr. Oritz E Sheet Patient's Covid serology was pending at time of discharge. Patients serology came back as detected for Coronovirus. Please clarify if patient had Coronovirus, pneumonia and sepsis as documented in the ED report. Patient history/risk factors: history of smoking, COPD exacerbation, CAD, HTN Clinical Indicators: Patient is 78% on RA CXR: right infiltrate Lactic acid: 3. Viral Panel: Detected Coronovirus Vital Signs: 97.8 F, 80 bpm, 24, 167/85, 78% RA Treatment:bronchodilator, steroids and oxygen as needed. Consult: pulmonary consult dUOnEB IV solumedrol Rocephin and Zithromax In order to capture the severity of condition, please clarify if the above treatment/clinical indicators signify: COVID-19 with pneumonia and sepsis COVID-19 ruled out COVID-19 confirmed with pneumonia no sepsis Covid confirmed without pneumonia and sepsis Other, please specify Unable to determine as per last pulmonary note on 04/30 ( here is no clear indication of pneumonia on today's chest x-ray) . when i saw there was no diagnosis of covid at that time , later on his covid test came back positive indicating apparently pt has positive covid infection. please refer to discharge summary and last pulmonary notes for more details . MTDD
--- NOTE | 2020-05-14 23:39 | P.DS ---
Providers Date of admission: 04/28/20 10:47 Expected date of discharge: 04/30/20 Attending physician: Joanna Bernabe Consults: 04/28/20 10:46 Consult Physician Routine Consulting Provider: Jeremy Park Consult Reason/Comments: Respiratory failure Do you want consulting provider notified?: Already Contacted Primary care physician: Christ [facility] Course: Discharge diagnosis Acute COPD exacerbation with possible pneumonia Possible bilateral basilar opacity, suspicious for pneumonia versus atelectasis. r/o Covid 19. report pending. acute hypoxic respiratory failure and was on BiPAP on admission. Advanced COPD with FEV1 of 32% of predicted. Hypertension DVT prophylaxis with heparin subcu Hospital course This is a pleasant 70 years old male with past medical history of COPD and hypertension, is a patient of Dr. Powell who is his faculty research physician and primary care doctor. Presents with days of progressive dyspnea and cough with green phlegm. Denies chest pain. No myalgia or arthralgia. On the presentation he is afebrile, tachycardic at 102, tachypneic and 26, saturating 100% on BiPAP, he was saturating 65% and 3 L oxygen via nasal cannula CBC is unremarkable, he has leukopenia of 0.8, however this is a chronic. Sodium is 1:30, creatinine is normal 0.5, elevated lactic acid 3.0 came back to normal at 1.7, liver enzymes not elevated. Troponin is negative at less than 0.012. Chest x-ray:L chronic emphysematous change with a new left greater than right basilar acute infiltrate and/or atelectasis EKG showing sinus tachycardia at [address]-T changes. In the emergency room he was started on Zithromax and ceftriaxone 04/29/2020 Patient is currently sitting on the side of the bed comfortably. Still having exertional dyspnea and expiratory wheezing on examination. No complaints of chest pain. Cough and sputum production is improving. Patient is being continued on Solu-Medrol and written treatments along with antibiotics in the f orm of ceftriaxone and azithromycin. Continue with oxygen therapy. Pulmonary is following. Patient has been afebrile. Denied any complaints of chest pain. No nausea vomiting or abdominal pain or diarrhea. All other review of systems negative except the above. 04/30/2020 Patient is awake alert oriented x3. Shortness of breath is much improved today. Continued on IV steroids and breathing treatments and antibiotics. Patient wishes to be discharged home. Suspected COVID-19 infection and results are pending at this time. Patient is cleared from pulmonary standpoint. PHYSICAL EXAMINATION: Patient is lying in the bed comfortably, no acute distress, awake alert and oriented.. HEENT: Normocephalic. Neck is supple. Pupils reactive. Nostrils clear. Oral cavity is moist. Ears reveal no drainage. Neck reveals no JVD, carotid bruits, or thyromegaly. CHEST EXAMINATION: Trachea is central. Symmetrical expansion. minimal expiratory wheezing and no rhonchi. CARDIAC: Normal S1, S2 with no gallops. No murmurs ABDOMEN: Soft. Bowel sounds normal. No organomegaly. No abdominal bruits. Extremities: reveal no edema. No clubbing or cyanosis Neurologically awake, alert, oriented x3 with well-coordinated movements. No focal deficits noted Skin: No rash or skin lesions. Psychiatric: Coperative. Nonsuicidal Musculoskeletal: No joint swelling or deformity. Normal range of motion. Vital Signs Temp 97.9 F 04/30/20 08:00 Pulse 77 04/30/20 08:00 Resp 15 04/30/20 08:00 BP 162/88 04/30/20 08:00 Pulse Ox 93 L 04/30/20 08:00 Intake & Output 04/29/20 04/30/20 04/30/20 19:59 06:59 18:59 Intake Total 540 Balance 540 Weight Intake: Oral 540 Other: # Voids 1 Patient Condition at Discharge: Serious Plan - Discharge Summary Discharge Rx Participant: No New Discharge Prescriptions: New predniSONE See Taper PO DIRECTED #30 tab Azithromycin [Zithromax] 500 mg PO DAILY 7 Days #7 tab Continue predniSONE 10 mg PO PC-SUPPER Tiotropium 18 Mcg/Puff [Spiriva] 1 cap INHALATION RT-DAILY Albuterol Sulfate [Proair Hfa] 2 puff INHALATION RT-Q4H PRN PRN Reason: Shortness Of Breath Budesonide-Formot 160-4.5 Mcg [Symbicort 160-4.5 Mcg Inhaler] 2 puff INHALATION RT-BID amLODIPine BESYLATE 5 mg PO PC-SUPPER Discontinued Azithromycin [Zithromax] 250 mg PO MOWEFR Discharge Medication List predniSONE 10 mg PO PC-SUPPER 10/30/13 [History] Albuterol Sulfate [Proair Hfa] 2 puff INHALATION RT-Q4H PRN 11/28/13 [History] Tiotropium 18 Mcg/Puff [Spiriva] 1 cap INHALATION RT-DAILY 11/28/13 [History] Budesonide-Formot 160-4.5 Mcg [Symbicort 160-4.5 Mcg Inhaler] 2 puff INHALATION RT-BID 12/29/13 [History] amLODIPine BESYLATE 5 mg PO PC-SUPPER 06/08/18 [History] Azithromycin [Zithromax] 500 mg PO DAILY 7 Days #7 tab 04/30/20 [Rx] predniSONE See Taper PO DIRECTED #30 tab 04/30/20 [Rx] Follow up Appointment(s)/Referral(s): Christ Giles MD [Primary Care Provider] - 1-2 days (Offices are closed at this time. Please call FRIDAY to make a follow up appoinment.) Patient Instructions/Handouts: COPD (Chronic Obstructive Pulmonary Disease) (DC) Activity/Diet/Wound Care/Special Instructions: COPD When to call your provider: Shortness of breath, wheezing, or trouble breathing that does not improve with rest and treatment Increase in the amount of mucus production Mucus that is yellow, green, bloody or smelly. Fever or chills Tightness in your chest that does not go away with your normal medication An irregular heartbeat or feeling that our heart is racing Trouble talking without shortness of breath Feeling increased lightheadedness or dizziness Feeling of doom Skin that is blue, mckay, or purple in color. Weight loss, poor appetite, weakness, and fatigue What you can do to help manage your condition: Quit smoking Take your medications as directed. Prevent infection; wash your hands often, avoid crowds, get a flu shot Manage stress Do breathing and coughing exercises Stay active Eat a healthy diet Discharge Disposition: HOME SELF-CARE
== END 2020-04-30 12:39 | disposition home or self-care (01) | DRG 177 ==
LOC: EC 09:40 → 3SCARD 10:47
PROVIDERS: ADMIT Hospitalist; ATTEND Hospitalist
DX: U07.1 COVID-19 (principal); J12.89 Other viral pneumonia; J96.01 Acute respiratory failure with hypoxia; J44.0 Chronic obstructive pulmonary disease with (acute) lower respiratory infection; J44.1 Chronic obstructive pulmonary disease with (acute) exacerbation; E87.2 Acidosis; D72.810 Lymphocytopenia; I10 Essential (primary) hypertension; Z79.51 Long term (current) use of inhaled steroids; Z79.52 Long term (current) use of systemic steroids; Z80.0 Family history of malignant neoplasm of digestive organs; Z80.1 Family history of malignant neoplasm of trachea, bronchus and lung; Z87.891 Personal history of nicotine dependence; Z98.42 Cataract extraction status, left eye; Z98.41 Cataract extraction status, right eye; I25.10 Atherosclerotic heart disease of native coronary artery without angina pectoris; E66.9 Obesity, unspecified; Z68.30 Body mass index [BMI] 30.0-30.9, adult
CPT/HCPCS: 36415; 71045; 80048; 80053; 83605; 84484; 85025; 85610; 85730; 87040; 87070; 87205; 93005; 94640; 94660; 96361; 96365; 96366; 96368; 96375; 99291

== ENCOUNTER 2021-06-13 10:45 | Inpatient (IN) | payer MEDICARE ==
--- NOTE | 2021-06-13 11:33 | XR ---
EXAMINATION TYPE: XR chest 1V portable DATE OF EXAM: 06/13/2021 COMPARISON: 04/29/2020 HISTORY: Shortness of breath TECHNIQUE: Single frontal view of the chest is obtained. FINDINGS: There is background chronic emphysematous change with persistent bibasilar opacities. No p leural effusion or pneumothorax seen bilaterally. The cardiac silhouette size remains within normal l imits. The osseous structures are intact. IMPRESSION: COPD with stable bibasilar infiltrate.
[2021-06-13 11:50] LABS: Prothrombin Time 10.3 sec (9.0-12.0)
[2021-06-13] MEDS ORDERED: DEXAMETHASONE SOD PHOSPHATE 10 MG/ML 1 ML VIAL IV STA (11:52)
[2021-06-13] MEDS ORDERED: IPRATROPIUM 0.5 MG/2.5 ML NEBU INHALATION STA (11:52)
[2021-06-13] MEDS ORDERED: ALBUTEROL NEBULIZED 2.5 MG/3 ML INHALATION STA (11:52)
[2021-06-13 11:57] LABS: African American GFR (CKD) >90 (>60 ml/min/1.73 sqM); Anion Gap 9 mmol/L; Basophils # (A) 0.1 k/uL (0-0.2); Basophils % (A) 1 %; Blood Urea Nitrogen 13 mg/dL (9-20); Calcium 8.4 mg/dL (8.4-10.2); Carbon Dioxide 27 mmol/L (22-30); Chloride 95 mmol/L (98-107); Eosinophils # (A) 0.1 k/uL (0-0.7); Eosinophils % (A) 1 %; Glucose 97 mg/dL (74-99); HCT 52.5 % (39.0-53.0); HGB 17.3 gm/dL (13.0-17.5); Lymphocytes # (A) 0.6 k/uL (1.0-4.8); Lymphocytes % (A) 5 %; MCH 32.1 pg (25.0-35.0); MCV 97.4 fL (80.0-100.0); Magnesium 2.2 mg/dL (1.6-2.3); Mean Platelet Volume 6.9; Monocytes # (A) 0.9 k/uL (0-1.0); Monocytes % (A) 8 %; Neutrophils # (A) 9.8 k/uL (1.3-7.7); Neutrophils % (A) 84 %; Non-African American GFR(CKD) >90 (>60 ml/min/1.73 sqM); Platelet Count 171 k/uL (150-450); Potassium 4.7 mmol/L (3.5-5.1); RBC 5.39 m/uL (4.30-5.90); RDW 14.4 % (11.5-15.5); Sodium 131 mmol/L (137-145); WBC 11.6 k/uL (3.8-10.6)
--- NOTE | 2021-06-13 11:57 | ED ---
General Adult HPI - General Chief complaint: Shortness of Breath Stated complaint: SOB Time Seen by Provider: 06/13/21 10:53 Source: patient Mode of arrival: EMS Limitations: no limitations - History of Present Illness Initial comments: Dictation was produced using [employer]Jam dictation software. please excuse any grammatical, word or spelling errors. Chief Complaint: 71-year-old male past nuchal history of COPD presents emergency department for hypoxia and dyspnea History of Present Illness: Patient is a 71-year-old male is brought in by EMS for hypoxia and dyspnea. EMS was called because patient has been feeling dyspneic for the last 3 days. He does not wear oxygen at home. According EMS patient was hypoxic on initial evaluation with a pulse oximeter reading of 80%. Is placed on 6 L nasal cannula which improved his oxygen level to 86%. Patient is placed on nonrebreather improvement 90 percents. Patient denies any chest pain. Denies any lower extremity symptoms. No history of blood clots. Denies any fever. No cough no sore throat or runny nose. The ROS documented in this emergency department record has been reviewed and confirmed by me. Those systems with pertinent positive or negative responses have been documented in the HPI. All other systems are other negative and/or noncontributory. PHYSICAL EXAM: General Impression: Alert and oriented x3, not in acute distress HEENT: Normocephalic atraumatic, extra-ocular movements intact, pupils equal and reactive to light bilaterally, mucous membranes moist. Cardiovascular: Heart regular rate and rhythm Chest: 3 word sentences, mild rib retractions, tachypneic, diminished lung sounds Abdomen: abdomen soft, non-tender, non-distended, no organomegaly Musculoskeletal: Pulses present and equal in all extremities, no peripheral edema Motor: no focal deficits noted Neurological: CN II-XII grossly intact, no focal motor or sensory deficits noted Skin: Intact with no visualized rashes Psych: Normal affect and mood ED course: 71-year-old male presents emergency department for dyspnea and hypoxia. Vital signs upon arrival shows 97% on 4 L is gave, rest of vital signs within acceptable limits. Laboratory evaluation obtained. CBC, coag panel is unremarkable. D-dimer 0.42. Metabolic panel shows a 131. Coronal virus is negative. Chest x-ray shows no acute processes. Patient reevaluated at bedside after breathing treatment with improvement of his exchange with auscultation of the lungs. Patient will be admitted for a COPD exacerbation and hypoxic respiratory failure. Pulmonology on consult. Case discussed Dr. Bernabe was went except patient's care. EKG interpretation: Ventricular rate 100, normal sinus rhythm,. Interval 134, QRS 60, QTC 428. No TX prolongation, no QTC prolongation, no ST or T-wave changes noted.. Overall, this EKG is unremarkable - Related Data Home Medications Medication Instructions Recorded Confirmed Albuterol Sulfate [Proair Hfa] 2 puff INHALATION RT-Q4H PRN 11/28/13 06/13/21 Tiotropium 18 Mcg/Puff [Spiriva] 1 cap INHALATION RT-DAILY 11/28/13 06/13/21 Budesonide-Formot 160-4.5 Mcg 2 puff INHALATION RT-BID 12/29/13 06/13/21 [Symbicort 160-4.5 Mcg Inhaler] amLODIPine BESYLATE 5 mg PO HS 06/08/18 06/13/21 Levofloxacin [Levaquin] 500 mg PO HS 06/13/21 06/13/21 predniSONE 5 mg PO HS 06/13/21 06/13/21 predniSONE See Taper PO DAILY 06/13/21 06/13/21 Allergies Allergy/AdvReac Type Severity Reaction Status Date / Time No Known Allergies Allergy Verified 06/13/21 11:47 Review of Systems ROS Statement: Those systems with pertinent positive or pertinent negative responses have been documented in the HPI. ROS Other: All systems not noted in ROS Statement are negative. Past Medical History Past Medical History: COPD, Hypertension, Respiratory Disorder Additional Past Medical History / Comment(s): HX RHEUMATIC FEVER AGE 8-NO PROBLEMS History of Any Multi-Drug Resistant Organisms: None Reported Past Surgical History: Heart Catheterization Additional Past Surgical History / Comment(s): Bilat cataracts Past Anesthesia/Blood Transfusion Reactions: No Reported Reaction Past Psychological History: No Psychological Hx Reported Smoking Status: Former smoker Past Alcohol Use History: Daily Past Drug Use History: None Reported - Past Family History Father Family Medical History: Cancer Additional Family Medical History / Comment(s): liver cancer-pt did not speak to father much. Mother Family Medical History: Cancer Additional Family Medical History / Comment(s): Lung cancer General Exam Limitations: no limitations Course Vital Signs 06/13/21 06/13/21 06/13/21 10:48 11:07 11:53 Temperature 98.0 F Pulse Rate 100 105 H Respiratory 18 18 Rate Blood Pressure 136/92 154/97 O2 Sat by Pulse 100 97 97 Oximetry 06/13/21 13:09 Temperature Pulse Rate 121 H Respiratory Rate Blood Pressure O2 Sat by Pulse Oximetry Medical Decision Making - Lab Data Result diagrams: 06/13/21 11:24 06/13/21 11:24 Lab Results 06/13/21 06/13/21 06/13/21 Range/Units 11:23 11:24 11:24 WBC 11.6 H (3.8-10.6) k/uL RBC 5.39 (4.30-5.90) m/uL Hgb 17.3 (13.0-17.5) gm/dL Hct 52.5 (39.0-53.0) % MCV 97.4 (80.0-100.0) fL MCH 32.1 (25.0-35.0) pg MCHC 33.0 (31.0-37.0) g/dL RDW 14.4 (11.5-15.5) % Plt Count 171 (150-450) k/uL MPV 6.9 Neutrophils % 84 % Lymphocytes % 5 % Monocytes % 8 % Eosinophils % 1 % Basophils % 1 % Neutrophils # 9.8 H (1.3-7.7) k/uL Lymphocytes # 0.6 L (1.0-4.8) k/uL Monocytes # 0.9 (0-1.0) k/uL Eosinophils # 0.1 (0-0.7) k/uL Basophils # 0.1 (0-0.2) k/uL PT 10.3 (9.0-12.0) sec INR 1.0 (<1.2) APTT 26.0 (22.0-30.0) sec D-Dimer 0.42 (<0.60) mg/L FEU Sodium (137-145) mmol/L Potassium (3.5-5.1) mmol/L Chloride (98-107) mmol/L Carbon Dioxide (22-30) mmol/L Anion Gap mmol/L BUN (9-20) mg/dL Creatinine (0.66-1.25) mg/dL Est GFR (CKD-EPI)AfAm (>60 ml/min/1.73 sqM) Est GFR (CKD-EPI)NonAf (>60 ml/min/1.73 sqM) Glucose (74-99) mg/dL Calcium (8.4-10.2) mg/dL Magnesium (1.6-2.3) mg/dL NT-Pro-B Natriuret Pep pg/mL Coronavirus (PCR) Not Detected (Not Detectd) 06/13/21 06/13/21 Range/Units 11:24 11:24 WBC (3.8-10.6) k/uL RBC (4.30-5.90) m/uL Hgb (13.0-17.5) gm/dL Hct (39.0-53.0) % MCV (80.0-100.0) fL MCH (25.0-35.0) pg MCHC (31.0-37.0) g/dL RDW (11.5-15.5) % Plt Count (150-450) k/uL MPV Neutrophils % % Lymphocytes % % Monocytes % % Eosinophils % % Basophils % % Neutrophils # (1.3-7.7) k/uL Lymphocytes # (1.0-4.8) k/uL Monocytes # (0-1.0) k/uL Eosinophils # (0-0.7) k/uL Basophils # (0-0.2) k/uL PT (9.0-12.0) sec INR (<1.2) APTT (22.0-30.0) sec D-Dimer (<0.60) mg/L FEU Sodium 131 L (137-145) mmol/L Potassium 4.7 (3.5-5.1) mmol/L Chloride 95 L (98-107) mmol/L Carbon Dioxide 27 (22-30) mmol/L Anion Gap 9 mmol/L BUN 13 (9-20) mg/dL Creatinine 0.63 L (0.66-1.25) mg/dL Est GFR (CKD-EPI)AfAm >90 (>60 ml/min/1.73 sqM) Est GFR (CKD-EPI)NonAf >90 (>60 ml/min/1.73 sqM) Glucose 97 (74-99) mg/dL Calcium 8.4 (8.4-10.2) mg/dL Magnesium 2.2 (1.6-2.3) mg/dL NT-Pro-B Natriuret Pep 182 pg/mL Coronavirus (PCR) (Not Detectd) Critical Care Time Critical Care Time: Yes Total Critical Care Time: 33 Disposition Clinical Impression: COPD exacerbation, Acute respiratory failure with hypoxia Disposition: ADMITTED IP TO THIS HOSP Condition: Critical Referrals: Christ Giles MD [Primary Care Provider] - 1-2 days
[2021-06-13] MEDS ORDERED: AZITHROMYCIN 500 MG TAB PO ONE (13:30)
[2021-06-13] MEDS ORDERED: IPRATROPIUM-ALBUTEROL 3 ML NEB INHALATION PRN (18:29)
[2021-06-13] MEDS ORDERED: ALPRAZolam 0.25 MG TAB PO PRN (18:29)
--- NOTE | 2021-06-13 19:08 | HP ---
HISTORY AND PHYSICAL DATE OF SERVICE: 06/13/2021. CHIEF COMPLAINT: Shortness of breath. HISTORY OF PRESENT ILLNESS: This 71-year-old gentleman with past medical history of COPD, hypertension, history of respiratory disorder, history of rheumatic fever, being followed by Dr. Giles in the outpatient setting, was complaining of increased shortness of breath for the last several days. The patient also had some white sputum. Patient was hypoxic, and the patient came to [facility] and was admitted for further evaluation and treatment. The chest x-ray showed some bibasilar prominence which has been present from the previous chest x-rays, and previous CT scan also showed possible bullous emphysema, predominantly upper lobe. The patient is being admitted for COPD, acute exacerbation, with acute hypoxic respiratory failure at this time. The pulse ox was 80% on room air. There is no history of any fever, rigor or chills at this time. PAST MEDICAL HISTORY: COPD, hypertension, history of respiratory failure, history of rheumatic fever as a child. MEDICATIONS: Prednisone, Norvasc, Spiriva, Levaquin, Symbicort, albuterol. Doses are reviewed. ALLERGIES: NONE. FAMILY HISTORY: History of liver cancer apparently. SOCIAL HISTORY: Previous history of smoking. Occasional alcohol intake. REVIEW OF SYSTEMS: ENT: No diminished hearing. No diminished vision. CARDIOVASCULAR SYSTEM: No angina, palpitations. RESPIRATORY SYSTEM: As mentioned earlier. GI: No nausea, vomiting, diarrhea. : No dysuria, retention. NERVOUS SYSTEM: No numbness, weakness. ALLERGY/IMMUNOLOGY: No asthma or hay fever. MUSCULOSKELETAL: As mentioned earlier. HEMATOLOGY/ONCOLOGY: No history of anemia. ENDOCRINE: No history of diabetes or hypothyroidism. CONSTITUTIONAL: As mentioned earlier. DERMATOLOGY: Negative. RHEUMATOLOGY: Negative. PSYCHIATRY: As mentioned earlier. PHYSICAL EXAMINATION: Patient is alert, oriented x3. Pulse is 115, blood pressure 166/97, respiration 20, temperature normal, pulse ox 97% on 4 L. HEENT: Conjunctivae normal. NECK: No jugular venous distention. CARDIOVASCULAR: S1, S2 muffled. RESPIRATION: Breath sounds diminished at the bases extensively. A few scattered rhonchi heard in the bases. ABDOMEN: Soft, nontender. No mass palpable. LEGS: No edema. No swelling. NERVOUS SYSTEM: Higher functions as mentioned earlier. Moves all 4 limbs. No focal motor or sensory deficit. LYMPHATICS: No lymph node palpable in neck, axillae or groin. SKIN: No ulcer, rash, bleeding. JOINTS: No active deforming arthropathy. LABS: Labs at this time show WBC 11.6, hemoglobin 17.6, sodium 131, potassium 4.7. ASSESSMENT: 1. Chronic obstructive pulmonary disease, acute exacerbation, with acute purulent tracheobronchitis with acute hypoxic respiratory failure. 2. Increased white count. 3. Hyponatremia. 4. 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 5. History of rheumatic fever. 6. History of cardiac catheterization. 7. Remote history of nicotine dependence. 8. History of ETOH. RECOMMENDATIONS AND DISCUSSION: In this 71-year-old gentleman who presented with multiple complex medical issues, we will monitor the patient closely, continue the current medications, continue symptomatic treatment. Otherwise at this time I recommend intensive bronchodilators, steroids, empiric antibiotics. Consultation with Dr. Dunn. Resume the home medications. DVT prophylaxis. Proton pump inhibitors. Prognosis is guarded because of multiple complex medical issues. Further recommendations to follow. COVID-19 has been negative. A copy of this dictation is being forwarded to Dr. Giles, who is the primary physician. MMODL / IJN: [id number] /
[2021-06-13] MEDS: methylPREDNISolone SOD SUCCI 125 MG/2 ML VIAL IV SCH (20:12)
[2021-06-13] MEDS: IPRATROPIUM-ALBUTEROL 3 ML NEB INHALATION SCH ×2 (20:27→20:29)
[2021-06-13] MEDS: SYMBICORT 160-4.5 MCG INHALER INHALATION SCH (20:28)
[2021-06-13] MEDS: amLODIPine 5 MG TAB PO SCH (22:42)
[2021-06-13] MEDS: HEPARIN SODIUM,PORCINE/PF 5,000 UNIT/0.5 ML SYRINGE SQ SCH (22:42)
[2021-06-14] MEDS: methylPREDNISolone SOD SUCCI 125 MG/2 ML VIAL IV SCH ×4 (00:31→18:11)
[2021-06-14 06:41] LABS: Basophils % (A) 0 %; Eosinophils % (A) 0 %; Lymphocytes # (A) 0.3 k/uL (1.0-4.8); Lymphocytes % (A) 3 %; MCH 32.7 pg (25.0-35.0); MCHC 33.4 g/dL (31.0-37.0); MCV 97.9 fL (80.0-100.0); Mean Platelet Volume 7.2; Monocytes # (A) 0.2 k/uL (0-1.0); Monocytes % (A) 2 %; Neutrophils # (A) 9.4 k/uL (1.3-7.7); Neutrophils % (A) 95 %; Platelet Count 163 k/uL (150-450); RBC 5.21 m/uL (4.30-5.90); RDW 14.4 % (11.5-15.5); WBC 9.8 k/uL (3.8-10.6)
[2021-06-14 07:52] LABS: Appearance,Urine Clear (Clear); Bilirubin,Urine Negative (Negative); Blood,Urine Negative (Negative); Color,Urine Yellow; Glucose,Urine (UA) 2+ (Negative); Leukocyte Esterase,Urine Negative (Negative); Nitrite,Urine Negative (Negative); PH, Urine 5.5 (5.0-8.0); Protein,Urine Trace (Negative); Specific Gravity,Urine 1.029 (1.001-1.035); Urobilinogen,Urine <2.0 mg/dL (<2.0)
[2021-06-14] MEDS: IPRATROPIUM-ALBUTEROL 3 ML NEB INHALATION SCH ×4 (07:52→20:41)
[2021-06-14] MEDS: SYMBICORT 160-4.5 MCG INHALER INHALATION SCH ×2 (07:52→20:41)
[2021-06-14 07:59] LABS: Ketones,Urine 3+ (Negative)
[2021-06-14 08:21] LABS: Glucose,Whole Blood 160 mg/dL (75-99)
[2021-06-14] MEDS: AZITHROMYCIN 500 MG TAB PO SCH (08:25)
[2021-06-14] MEDS: PANTOPRAZOLE 40 MG TABLET PO SCH (08:25)
[2021-06-14] MEDS: HEPARIN SODIUM,PORCINE/PF 5,000 UNIT/0.5 ML SYRINGE SQ SCH ×2 (08:26→20:52)
[2021-06-14] MEDS ORDERED: predniSONE 20 MG TAB PO SCH (09:00)
[2021-06-14 10:07] LABS: African American GFR (CKD) 127.3 (60.0-200.0); Albumin 3.9 g/dL (3.8-4.9); Albumin/Globulin Ratio 1.77 (1.60-3.17); Anion Gap 14.9 mmol/L (10.00-18.00); Blood Urea Nitrogen 17.5 mg/dL (9.0-27.0); Calcium 8.6 mg/dL (8.7-10.3); Carbon Dioxide 24.1 mmol/L (20.0-27.5); Globulin 2.2 g/dL (1.6-3.3); Non-African American GFR(CKD) 109.8 (60.0-200.0); Total Bilirubin 0.7 mg/dL (0.30-1.20); Total Protein 6.1 g/dL (6.2-8.2)
--- NOTE | 2021-06-14 11:37 | P.CNPUL ---
History of Present Illness Consult date: 06/14/21 Requesting physician: Joanna Bernabe Reason for consult: dyspnea, cough, COPD, hypoxemia, abnormal CXR/CT Chief complaint: Shortness of breath, wheezing, cough. History of present illness: Pulmonary consult dated 06/14/2021. 71-year-old male with history of well established COPD. He sees one of my partners in the office for his COPD. He is brought into the emergency room, on June 13, by EMS, for shortness of breath, and low saturations. His been feeling sick for about 3-4 days. The patient states that he has cough, wheezing, chest tightness, and occasional phlegm production. Apparently when EMS arrived, his saturations were in the low 80s. He was placed on 6 L nasal cannula, and his saturations improved up to 86%. He denies any fever or chills. He denies any chest pain or chest discomfort. The patient's currently on 4 L nasal cannula. He's not receiving any IV fluids. CBC shows a white count of 9.8, hemoglobin 17, hematocrit 51, and platelet count 163,000. Sodium 132, potassium 5, chlorides 93, CO2 24, anion gap 15, BUN 18, creatinine 0.5. Glucose is 149. Urine is negative. Coronavirus testing was negative. Chest x- ray shows changes of COPD, and some basilar atelectasis and/or infiltrates. Review of Systems REVIEW OF SYSTEMS: CONSTITUTIONAL: [Negative.] NEUROLOGIC: [ Negative.] HEENT: [ Negative.] CARDIAC: [Negative.] PULMONARY: Shortness of breath, chest tightness, cough, wheezing, and occasional phlegm production. GI: [Negative.] : [Negative.] RHEUMATOLOGIC: [ Negative.] IMMUNOLOGIC: [ Negative.] ENDOCRINE: [Negative. ] DERMATOLOGIC: [Negative.] Past Medical History Past Medical History: COPD, Hypertension, Respiratory Disorder Additional Past Medical History / Comment(s): HX RHEUMATIC FEVER AGE 8-NO PROBLEMS History of Any Multi-Drug Resistant Organisms: None Reported Past Surgical History: Heart Catheterization Additional Past Surgical History / Comment(s): Bilat cataracts Past Anesthesia/Blood Transfusion Reactions: No Reported Reaction Smoking Status: Former smoker - Past Family History Father Family Medical History: Cancer Additional Family Medical History / Comment(s): liver cancer-pt did not speak to father much. Mother Family Medical History: Cancer Additional Family Medical History / Comment(s): Lung cancer Medications and Allergies Home Medications Medication Instructions Recorded Confirmed Type Albuterol Sulfate [Proair Hfa] 2 puff INHALATION RT-Q4H PRN 11/28/13 06/13/21 History Tiotropium 18 Mcg/Puff [Spiriva] 1 cap INHALATION RT-DAILY 11/28/13 06/13/21 History Budesonide-Formot 160-4.5 Mcg 2 puff INHALATION RT-BID 12/29/13 06/13/21 History [Symbicort 160-4.5 Mcg Inhaler] amLODIPine BESYLATE 5 mg PO HS 06/08/18 06/13/21 History Levofloxacin [Levaquin] 500 mg PO HS 06/13/21 06/13/21 History predniSONE 5 mg PO HS 06/13/21 06/13/21 History predniSONE See Taper PO DAILY 06/13/21 06/13/21 History Allergies Allergy/AdvReac Type Severity Reaction Status Date / Time No Known Allergies Allergy Verified 06/13/21 11:47 Physical Exam Osteopathic Statement: *. No significant issues noted on an osteopathic structural exam other than those noted in the History and Physical/Consult. Vitals: Vital Signs Temp Pulse Pulse Resp BP BP Pulse Ox 06/14/21 08:02 85 06/14/21 07:52 80 06/14/21 02:00 97.1 F L 85 20 138/79 96 06/13/21 20:40 90 06/13/21 20:29 84 06/13/21 20:00 97.9 F 89 20 140/74 100 06/13/21 16:36 101 H 20 123/70 98 06/13/21 14:13 115 H 20 167/97 97 06/13/21 13:42 114 H 06/13/21 13:19 117 H 06/13/21 13:09 121 H 06/13/21 11:53 105 H 18 154/97 97 Intake and Output 06/13/21 06/14/21 06/14/21 22:59 06:59 14:59 Intake Total 500 Balance 500 Intake: Oral 500 Other: Voiding Method Urinal # Voids 4 Weight 102.058 kg No acute distress, oriented 3. Sitting at the bedside. 4 L nasal O2. Saturations 96%. HEENT examination is grossly unremarkable. Neck supple. Full range of motion. No adenopathy thyromegaly or neck vein distention. Cardiovascular examination reveals regular rhythm rate. S1-S2 normal. No S3 or S4. No discernible murmur noted. Heart sounds are distant. Heart rate 89 bpm. Lungs reveal bilateral expiratory rhonchi and expiratory wheezes. No crackles. There is prolongation on forced maneuver. The patient coughs on forced maneuver. Adventitious lung sounds are more prominent on forced maneuver. Abdomen soft bowel sounds are heard. No masses or tenderness. Extremities are intact. No cyanosis clubbing or edema. Skin is without rash or lesion. Neurologic examination is brief but nonfocal. Results - Laboratory Findings CBC and BMP: 06/14/21 05:13 06/14/21 05:13 PT/INR, D-dimer PT 10.3 sec (9.0-12.0) 06/13/21 11:24 INR 1.0 (<1.2) 06/13/21 11:24 D-Dimer 0.42 mg/L FEU (<0.60) 06/13/21 11:24 Abnormal lab findings: Abnormal Labs 06/13/21 06/13/21 06/14/21 11:24 11:24 05:13 WBC 11.6 H Neutrophils # 9.8 H 9.4 H Lymphocytes # 0.6 L 0.3 L Sodium 131 L Chloride 95 L Creatinine 0.63 L BUN/Creatinine Ratio Glucose POC Glucose (mg/dL) Calcium Total Protein Urine Protein Urine Glucose (UA) Urine Ketones 06/14/21 06/14/21 06/14/21 05:13 06:20 08:20 WBC Neutrophils # Lymphocytes # Sodium 132 L Chloride 93 L Creatinine 0.5 L BUN/Creatinine Ratio 35.00 H Glucose 149 H POC Glucose (mg/dL) 160 H Calcium 8.6 L Total Protein 6.1 L Urine Protein Trace H Urine Glucose (UA) 2+ H Urine Ketones 3+ H - Diagnostic Findings Chest x-ray: image reviewed Assessment and Plan Assessment: Acute exacerbation of COPD, complicated by either purulent tracheobronchitis or bronchopneumonia. Prior history of heavy tobacco use. History of hypertension. Plan: Plan dated 06/14/2021. The patient should get Solu-Medrol 60 mg IV push, every 6 hours, and a combination of both albuterol sulfate and ipratropium bromide 4 times a day and when necessary. In addition, the patient's on Symbicort 160/4.5, 2 puffs twice a day. The patient's also getting Zithromax, and ceftriaxone. If not or ready done, a pro-calcitonin level should be done. The patient looks to be relatively stable. Hoping for quick turnaround and possible discharge in the next day or 2. No additional recommendations are made at this time. Time with Patient: Greater than 30
[2021-06-14 12:43] LABS: Glucose,Whole Blood 144 mg/dL (75-99)
[2021-06-14 12:59] VITALS: RESP 18
[2021-06-14] MEDS: INSULIN ASPART (NovoLOG) 100 UNIT/ML VIAL SQ SCH ×3 (13:13→20:51)
[2021-06-14 17:27] LABS: Glucose,Whole Blood 122 mg/dL (75-99)
--- NOTE | 2021-06-14 18:09 | PN ---
PROGRESS NOTE DATE OF SERVICE: 06/14/2021 This 71-year-old gentleman who was admitted with COPD, acute exacerbation, and acute purulent tracheobronchitis is being closely monitored. No chest pain. No palpitations. No fever. PHYSICAL EXAMINATION: Alert and oriented x3. Pulse is 89, blood pressure 133/80, respiration 18, temperature 97.2, pulse ox 98% on 4 L. HEENT: Conjunctivae normal. NECK: No jugular venous distention. CARDIOVASCULAR: S1, S2 muffled. RESPIRATION: Breath sounds diminished at the bases. Scattered rhonchi and crackles. ABDOMEN: Soft. NERVOUS SYSTEM: No focal deficit. LAB STUDIES: WBC 9.2, hemoglobin 17. Sodium 132. UA noted. ASSESSMENT: 1. Chronic obstructive pulmonary disease, acute exacerbation, with acute purulent tracheobronchitis and acute hypoxic respiratory failure, present on admission. 2. Increased white count. 3. Hyponatremia. 4. Possible bullous emphysema, predominantly upper lobe. 5. History of rheumatic fever. 6. History of cardiac catheterization. 7. Remote history of nicotine dependence. 8. History of ETOH. RECOMMENDATIONS AND DISCUSSION: I recommend to continue current medications, continue with the monitoring, symptomatic treatment. Continue with the bronchodilators. Continue with empiric antibiotics. Continue steroids. Closely monitor. Follow closely with Pulmonary, Dr. Dunn. Further recommendations to follow. Prognosis guarded. MMODL / IJN: [id number] /
[2021-06-14 20:01] LABS: Glucose,Whole Blood 133 mg/dL (75-99)
[2021-06-14] MEDS: amLODIPine 5 MG TAB PO SCH (20:52)
[2021-06-15] MEDS: methylPREDNISolone SOD SUCCI 125 MG/2 ML VIAL IV SCH ×2 (00:34→05:14)
[2021-06-15 05:24] VITALS: BP 124/77; TEMP 97.3
[2021-06-15 07:31] LABS: Glucose,Whole Blood 125 mg/dL (75-99)
[2021-06-15] MEDS: SYMBICORT 160-4.5 MCG INHALER INHALATION SCH (09:11)
[2021-06-15] MEDS: IPRATROPIUM-ALBUTEROL 3 ML NEB INHALATION SCH ×2 (09:11→11:28)
[2021-06-15] MEDS: INSULIN ASPART (NovoLOG) 100 UNIT/ML VIAL SQ SCH (10:26)
[2021-06-15] MEDS: AZITHROMYCIN 500 MG TAB PO SCH (10:26)
[2021-06-15] MEDS: HEPARIN SODIUM,PORCINE/PF 5,000 UNIT/0.5 ML SYRINGE SQ SCH (10:26)
[2021-06-15] MEDS: PANTOPRAZOLE 40 MG TABLET PO SCH (10:26)
--- NOTE | 2021-06-15 12:19 | P.PN ---
Subjective Progress Note Date: 06/15/21 Principal diagnosis: COPD exacerbation 71-year-old male with history of well established COPD. He sees one of my partners in the office for his COPD. He is brought into the emergency room, on June 13, by EMS, for shortness of breath, and low saturations. His been feeling sick for about 3-4 days. The patient states that he has cough, wheezing, chest tightness, and occasional phlegm production. Apparently when EMS arrived, his saturations were in the low 80s. He was placed on 6 L nasal cannula, and his saturations improved up to 86%. He denies any fever or chills. He denies any chest pain or chest discomfort. The patient's currently on 4 L nasal cannula. He's not receiving any IV fluids. CBC shows a white count of 9.8, hemoglobin 17, hematocrit 51, and platelet count 163,000. Sodium 132, potassium 5, chlorides 93, CO2 24, anion gap 15, BUN 18, creatinine 0.5. Glucose is 149. Urine is negative. Coronavirus testing was negative. Chest x- ray shows changes of COPD, and some basilar atelectasis and/or infiltrates. The patient is seen today 06/15/2021 in follow-up on the regular medical floor. He is awake and alert in no acute distress. He is breathing quite a bit better today compared to yesterday. He does qualify for home oxygen with O2 satu rations in the low to mid 80s on room air with exertion. Recovers up into the 90s on 2 L/m per nasal cannula. Blood glucose 125. He is continued on DuoNeb inhalations, Symbicort, IV Solu-Medrol. Heparin for DVT prophylaxis. Empiric antibiotics in the form of azithromycin. Objective - Vital Signs Vital signs: Vital Signs Temp 97.3 F L 06/15/21 05:00 Pulse 82 06/15/21 11:42 Resp 18 06/15/21 05:00 BP 124/77 06/15/21 05:00 Pulse Ox 94 L 06/15/21 11:42 Intake & Output 06/14/21 06/15/21 06/15/21 18:59 06:59 18:59 Other: Voiding Method Urinal # Voids 1 2 - Exam GENERAL EXAM: Alert, active, very pleasant 71-year-old gentleman, on 2 L nasal cannula, comfortable in no apparent distress. HEAD: Normocephalic. EYES: Normal reaction of pupils, equal size. NOSE: Clear with pink turbinates. THROAT: No erythema or exudates. NECK: No masses, no JVD. CHEST: No chest wall deformity. LUNGS: Equal air entry with no crackles, wheeze, rhonchi or dullness. D iminished. CVS: S1 and S2 normal with no audible murmur, regular rhythm. ABDOMEN: No hepatosplenomegaly, normal bowel sounds, no guarding or rigidity. SPINE: No scoliosis or deformity SKIN: No rashes CENTRAL NERVOUS SYSTEM: No focal deficits, tone is normal in all 4 extremities. EXTREMITIES: There is no peripheral edema. No clubbing, no cyanosis. Peripheral pulses are intact. - Labs CBC & Chem 7: 06/14/21 05:13 06/14/21 05:13 Labs: Abnormal Lab Results - Last 24 Hours (Table) 06/14/21 06/14/21 06/14/21 Range/Units 12:42 17:26 20:00 POC Glucose (mg/dL) 144 H 122 H 133 H (75-99) mg/dL 06/15/21 Range/Units 07:30 POC Glucose (mg/dL) 125 H (75-99) mg/dL Assessment and Plan Assessment: 1 Acute exacerbation of COPD, complicated by either purulent tracheobronchitis or bronchopneumonia. 2 Prior history of heavy tobacco use. 3 History of hypertension. Plan: The patient is stable from the pulmonary standpoint Will qualify for home oxygen Continue his home Symbicort, Spiriva, albuterol Complete a prednisone taper starting at 40 daily for 4 days Complete 5 days of azithromycin Follow up with Dr. Giles in our office in 1-2 weeks' I, the cosigning physician, performed a history & physical examination of the patient. Lungs sounds are clear, diminished. Maintaining good O2 saturations in the 90s on room air. I discussed the assessment and plan of care with my nurse practitioner, Nicci Craft. I attest to the above note as dictated by her.
[2021-06-15 12:40] LABS: Glucose,Whole Blood 120 mg/dL (75-99)
[2021-06-15 13:47] VITALS: PULSE 87
== END 2021-06-15 15:20 | disposition home or self-care (01) | DRG 190 ==
LOC: EC 10:45 → 5NMEDONC 13:25
PROVIDERS: ADMIT Hospitalist; ATTEND Hospitalist
DX: J44.1 Chronic obstructive pulmonary disease with (acute) exacerbation (principal); J96.01 Acute respiratory failure with hypoxia; E87.1 Hypo-osmolality and hyponatremia; J44.0 Chronic obstructive pulmonary disease with (acute) lower respiratory infection; J20.9 Acute bronchitis, unspecified; Z87.891 Personal history of nicotine dependence; I10 Essential (primary) hypertension; Z79.51 Long term (current) use of inhaled steroids; Z80.0 Family history of malignant neoplasm of digestive organs; Z80.1 Family history of malignant neoplasm of trachea, bronchus and lung; Z20.822 Contact with and (suspected) exposure to COVID-19; E86.0 Dehydration; Z98.42 Cataract extraction status, left eye; Z98.41 Cataract extraction status, right eye; Z79.899 Other long term (current) drug therapy; Z79.52 Long term (current) use of systemic steroids
CPT/HCPCS: 36415; 71045; 80048; 80053; 81003; 83036; 83735; 83880; 84145; 85025; 85379; 85610; 85730; 87635; 93005; 94640; 94644; 99291

== ENCOUNTER 2021-07-21 13:44 | Emergency (ER) | payer MEDICARE ==
[2021-07-21 14:06] VITALS: RESP 18; TEMP 98.2
--- NOTE | 2021-07-21 14:43 | ED ---
Extremity Problem HPI - General Chief complaint: Extremity Problem,Nontraumatic Stated complaint: Jaundice Time Seen by Provider: 07/21/21 13:44 Source: patient, EMS, RN notes reviewed Mode of arrival: EMS Limitations: no limitations - History of Present Illness Initial comments: This is a 71-year-old male history of COPD who states he drinks up to 8 beers a day who presents with complaints of bleeding from the dorsal aspect of his right hand. He states he was picking a scab with her bleeding and would not stop. He did call EMS was brought in for evaluation he was noted by paramedics to be extremely jaundiced patient states he believes this is Mottled last week or so he does state he's had increased abdominal girth and peripheral edema with fl aking of his skin. He has a fevers chills nausea vomiting sweats cough phlegm production he does use oxygen at night but has not noticed any worsening in his breathing abilities. No prior history of liver or gallbladder disease. No other complaints modifying factors other than he did notice his urine is much darker than normal he was over last week. MD Complaint: extremity swelling, other - Related Data Home Medications Medication Instructions Recorded Confirmed Albuterol Sulfate [Proair Hfa] 2 puff INHALATION RT-Q4H PRN 11/28/13 07/21/21 Tiotropium 18 Mcg/Puff [Spiriva] 1 cap INHALATION RT-DAILY 11/28/13 07/21/21 Budesonide-Formot 160-4.5 Mcg 2 puff INHALATION RT-BID 12/29/13 07/21/21 [Symbicort 160-4.5 Mcg Inhaler] amLODIPine BESYLATE 5 mg PO HS 06/08/18 07/21/21 predniSONE 5 mg PO HS 06/13/21 07/21/21 Ipratropium-Albuterol Nebulize 3 ml INHALATION RT-QID PRN 07/21/21 07/21/21 [Duoneb 0.5 mg-3 mg/3 ml Soln] Allergies Allergy/AdvReac Type Severity Reaction Status Date / Time No Known Allergies Allergy Verified 07/21/21 14:19 Review of Systems ROS Statement: Those systems with pertinent positive or pertinent negative responses have been documented in the HPI. ROS Other: All systems not noted in ROS Statement are negative. Past Medical History Past Medical History: COPD, Hypertension, Respiratory Disorder Additional Past Medical History / Comment(s): HX RHEUMATIC FEVER AGE 8-NO PROBLEMS History of Any Multi-Drug Resistant Organisms: None Reported Past Surgical History: Heart Catheterization Additional Past Surgical History / Comment(s): Bilat cataracts Past Anesthesia/Blood Transfusion Reactions: No Reported Reaction Past Psychological History: No Psychological Hx Reported Smoking Status: Former smoker - Past Family History Father Family Medical History: Cancer Additional Family Medical History / Comment(s): liver cancer-pt did not speak to father much. Mother Family Medical History: Cancer Additional Family Medical History / Comment(s): Lung cancer General Exam - General Exam Comments Initial Comments: This is a well-developed well-nourished awake alert oriented times female with evidence of diffuse jaundice Limitations: no limitations General appearance: alert, in no apparent distress Head exam: Present: atraumatic, normocephalic Eye exam: Present: other (Scleral icterus) Pupils: Present: normal accommodation ENT exam: Present: mucous membranes dry Neck exam: Present: normal inspection, full ROM, other (No stridor JVD or bruits). Absent: tenderness, meningismus, lymphadenopathy Respiratory exam: Present: decreased breath sounds Cardiovascular Exam: Present: normal rhythm, tachycardia GI/Abdominal exam: Present: distended, other (Evidence of ascites) Rectal exam: Present: deferred Extremities exam: Present: full ROM, pedal edema, other (Peripheral edema with jaundice) Back exam: Present: full ROM. Absent: tenderness, muscle spasm, paraspinal tenderness Neurological exam: Present: alert, oriented X3, CN II-XII intact Psychiatric exam: Present: normal affect, normal mood Skin exam: Present: other (Severe jaundice) Course Vital Signs 07/21/21 07/21/21 07/21/21 13:59 15:15 18:24 Temperature 98.2 F Pulse Rate 102 H 84 98 Respiratory 18 18 18 Rate Blood Pressure 113/83 120/82 123/75 O2 Sat by Pulse 96 94 L 93 L Oximetry Medical Decision Making - Medical Decision Making I did discuss the findings with the patient also with Dr. Friedman. [facility] does not have gastrointestinal coverage until the of this month patient does demonstrate evidence of acute jaundice possibly secondary to cirrhosis and does require gastrointestinal evaluation. I did discuss the case with Dr. David at [facility] emergency department was agreed to accept the patient in transfer. The patient is in agreement with this. - Lab Data Result diagrams: 07/21/21 15:15 07/21/21 15:15 Lab Results 07/21/21 07/21/21 07/21/21 Range/Units 15:15 15:15 15:15 WBC 13.4 H (3.8-10.6) k/uL RBC 5.13 (4.30-5.90) m/uL Hgb 16.4 (13.0-17.5) gm/dL Hct 51.1 (39.0-53.0) % MCV 99.6 (80.0-100.0) fL MCH 31.9 (25.0-35.0) pg MCHC 32.0 (31.0-37.0) g/dL RDW 15.7 H (11.5-15.5) % Plt Count 159 (150-450) k/uL MPV 7.9 Neutrophils % 71 % Lymphocytes % 19 % Monocytes % 6 % Eosinophils % 1 % Basophils % 1 % Neutrophils # 9.5 H (1.3-7.7) k/uL Lymphocytes # 2.5 (1.0-4.8) k/uL Monocytes # 0.8 (0-1.0) k/uL Eosinophils # 0.1 (0-0.7) k/uL Basophils # 0.1 (0-0.2) k/uL Manual Slide Review Performed Toxic Vacuolation Present Macrocytosis Slight PT 10.9 (9.0-12.0) sec INR 1.0 (<1.2) APTT 23.0 (22.0-30.0) sec Sodium 135 L (137-145) mmol/L Potassium 3.9 (3.5-5.1) mmol/L Chloride 95 L (98-107) mmol/L Carbon Dioxide 26 (22-30) mmol/L Anion Gap 14 mmol/L BUN 17 (9-20) mg/dL Creatinine 0.97 (0.66-1.25) mg/dL Est GFR (CKD-EPI)AfAm >90 (>60 ml/min/1.73 sqM) Est GFR (CKD-EPI)NonAf 79 (>60 ml/min/1.73 sqM) Glucose 110 H (74-99) mg/dL Lactic Ac Sepsis Rflx Plasma Lactic Acid Keshawn (0.7-2.0) mmol/L Calcium 9.0 (8.4-10.2) mg/dL Magnesium 2.1 (1.6-2.3) mg/dL Total Bilirubin 36.3 H* (0.2-1.3) mg/dL AST 618 H (17-59) U/L ALT 544 H (4-49) U/L Alkaline Phosphatase 1359 H (38-126) U/L Ammonia (<30) umol/L Creatine Kinase 39 L (55-170) U/L Total Protein 7.1 (6.3-8.2) g/dL Albumin 3.7 (3.5-5.0) g/dL Lipase 55 (23-300) U/L Serum Alcohol <10 mg/dL Coronavirus (PCR) (Not Detectd) 07/21/21 07/21/21 07/21/21 Range/Units 15:15 16:04 18:47 WBC (3.8-10.6) k/uL RBC (4.30-5.90) m/uL Hgb (13.0-17.5) gm/dL Hct (39.0-53.0) % MCV (80.0-100.0) fL MCH (25.0-35.0) pg MCHC (31.0-37.0) g/dL RDW (11.5-15.5) % Plt Count (150-450) k/uL MPV Neutrophils % % Lymphocytes % % Monocytes % % Eosinophils % % Basophils % % Neutrophils # (1.3-7.7) k/uL Lymphocytes # (1.0-4.8) k/uL Monocytes # (0-1.0) k/uL Eosinophils # (0-0.7) k/uL Basophils # (0-0.2) k/uL Manual Slide Review Toxic Vacuolation Macrocytosis PT (9.0-12.0) sec INR (<1.2) APTT (22.0-30.0) sec Sodium (137-145) mmol/L Potassium (3.5-5.1) mmol/L Chloride (98-107) mmol/L Carbon Dioxide (22-30) mmol/L Anion Gap mmol/L BUN (9-20) mg/dL Creatinine (0.66-1.25) mg/dL Est GFR (CKD-EPI)AfAm (>60 ml/min/1.73 sqM) Est GFR (CKD-EPI)NonAf (>60 ml/min/1.73 sqM) Glucose (74-99) mg/dL Lactic Ac Sepsis Rflx Y Plasma Lactic Acid Keshawn 3.4 H* (0.7-2.0) mmol/L Calcium (8.4-10.2) mg/dL Magnesium (1.6-2.3) mg/dL Total Bilirubin (0.2-1.3) mg/dL AST (17-59) U/L ALT (4-49) U/L Alkaline Phosphatase (38-126) U/L Ammonia 11 (<30) umol/L Creatine Kinase (55-170) U/L Total Protein (6.3-8.2) g/dL Albumin (3.5-5.0) g/dL Lipase (23-300) U/L Serum Alcohol mg/dL Coronavirus (PCR) Not Detected (Not Detectd) Disposition Clinical Impression: Jaundice, Acute liver failure, Ascites, History of alcohol use Disposition: OTHER INSTITUTION NOT DEFINED Condition: Fair Referrals: Christ Giles MD [Primary Care Provider] - 1-2 days - Out of Hospital Transfer - Req. Specs Out of Hospital Transfer - Requested Specifics: Other Emergency Center
[2021-07-21 15:49] LABS: ALT 544 U/L (4-49); AST 618 U/L (17-59); African American GFR (CKD) >90 (>60 ml/min/1.73 sqM); Albumin 3.7 g/dL (3.5-5.0); Alcohol <10 mg/dL; Anion Gap 14 mmol/L; Blood Urea Nitrogen 17 mg/dL (9-20); Carbon Dioxide 26 mmol/L (22-30); Chloride 95 mmol/L (98-107); Creatine Kinase 39 U/L (55-170); Glucose 110 mg/dL (74-99); Lipase 55 U/L (23-300); Magnesium 2.1 mg/dL (1.6-2.3); Non-African American GFR(CKD) 79 (>60 ml/min/1.73 sqM); Potassium 3.9 mmol/L (3.5-5.1); Sodium 135 mmol/L (137-145); Total Protein 7.1 g/dL (6.3-8.2)
[2021-07-21 15:59] LABS: Basophils # (A) 0.1 k/uL (0-0.2); Basophils % (A) 1 %; Eosinophils # (A) 0.1 k/uL (0-0.7); Eosinophils % (A) 1 %; HCT 51.1 % (39.0-53.0); HGB 16.4 gm/dL (13.0-17.5); Lymphocytes # (A) 2.5 k/uL (1.0-4.8); Lymphocytes % (A) 19 %; MCH 31.9 pg (25.0-35.0); MCV 99.6 fL (80.0-100.0); Macrocytosis Slight; Mean Platelet Volume 7.9; Monocytes # (A) 0.8 k/uL (0-1.0); Monocytes % (A) 6 %; Neutrophils # (A) 9.5 k/uL (1.3-7.7); Neutrophils % (A) 71 %; Platelet Count 159 k/uL (150-450); RBC 5.13 m/uL (4.30-5.90); RDW 15.7 % (11.5-15.5); WBC 13.4 k/uL (3.8-10.6)
[2021-07-21 16:04] LABS: Lactic Acid, Venous 3.4 mmol/L (0.7-2.0)
[2021-07-21 16:05] LABS: Alkaline Phosphatase 1359 U/L (38-126); Total Bilirubin 36.3 mg/dL (0.2-1.3)
[2021-07-21 16:21] LABS: Toxic Vacuolation Present
[2021-07-21 16:33] LABS: Prothrombin Time 10.9 sec (9.0-12.0)
[2021-07-21] MEDS ORDERED: SODIUM CHLORIDE 0.9% 1,000 ML IV STA ×2 (17:16)
[2021-07-21 18:26] VITALS: PULSE 98
[2021-07-21 20:41] VITALS: BP 120/70
== END 2021-07-21 20:50 | disposition other institution (70) ==
LOC: EC 13:44
DX: K72.00 Acute and subacute hepatic failure without coma (principal); R18.8 Other ascites; J44.9 Chronic obstructive pulmonary disease, unspecified; I10 Essential (primary) hypertension; Z72.89 Other problems related to lifestyle; Z79.899 Other long term (current) drug therapy; Z79.51 Long term (current) use of inhaled steroids; Z20.822 Contact with and (suspected) exposure to COVID-19; Z87.891 Personal history of nicotine dependence
CPT/HCPCS: 36415; 93005; 80053; 82140; 82550; 83605; 83690; 83735; 85025; 85610; 85730; 87635; 99285; G0480; 80320

== ENCOUNTER 2021-08-25 19:01 | Inpatient (IN) | payer MEDICARE ==
[2021-08-25] MEDS ORDERED: ALBUTEROL NEBULIZED 2.5 MG/3 ML INHALATION STA (19:47)
[2021-08-25] MEDS ORDERED: methylPREDNISolone SOD SUCCI 125 MG/2 ML VIAL IV STA (19:47)
[2021-08-25] MEDS ORDERED: IPRATROPIUM 0.5 MG/2.5 ML NEBU INHALATION STA (19:47)
--- NOTE | 2021-08-25 20:01 | ED ---
General Adult HPI - General Source: patient, EMS, RN notes reviewed, old records reviewed Mode of arrival: EMS Limitations: no limitations <Cr Alvarez - Last Filed: 08/25/21 21:35> <Alex Hansen - Last Filed: 08/25/21 23:15> - General Chief complaint: Shortness of Breath Stated complaint: SOB Time Seen by Provider: 08/25/21 19:44 - History of Present Illness Initial comments: 71-year-old male history of COPD, liver cancer on home oxygen presents with increased cough and dyspnea. Patient denies fever denies chest pain. He doesn't report some abdominal distention, no abdominal pain. He also reports bilateral edema. Patient appears jaundiced on initial evaluation. (Cr Alvarez) - Related Data Home Medications Medication Instructions Recorded Confirmed Tiotropium 18 Mcg/Puff [Spiriva] 1 cap INHALATION RT-DAILY 11/28/13 08/25/21 Budesonide-Formot 160-4.5 Mcg 2 puff INHALATION RT-BID 12/29/13 08/25/21 [Symbicort 160-4.5 Mcg Inhaler] Furosemide [Lasix] 20 mg PO DAILY 08/25/21 08/25/21 Levofloxacin [Levaquin] 500 mg PO DAILY 08/25/21 08/25/21 Allergies Allergy/AdvReac Type Severity Reaction Status Date / Time No Known Allergies Allergy Verified 08/25/21 21:07 Review of Systems ROS Other: All systems not noted in ROS Statement are negative. <Cr Alvarez - Last Filed: 08/25/21 21:35> ROS Other: All systems not noted in ROS Statement are negative. <Alex Hansen - Last Filed: 08/25/21 23:15> ROS Statement: Those systems with pertinent positive or pertinent negative responses have been documented in the HPI. Past Medical History Past Medical History: COPD, Hypertension, Respiratory Disorder Additional Past Medical History / Comment(s): HX RHEUMATIC FEVER AGE 8-NO PROBLEMS History of Any Multi-Drug Resistant Organisms: None Reported Past Surgical History: Heart Catheterization Additional Past Surgical History / Comment(s): Bilat cataracts Past Anesthesia/Blood Transfusion Reactions: No Reported Reaction Past Psychological History: No Psychological Hx Reported Smoking Status: Former smoker Past Alcohol Use History: None Reported Past Drug Use History: None Reported - Past Family History Father Family Medical History: Cancer Additional Family Medical History / Comment(s): liver cancer-pt did not speak to father much. Mother Family Medical History: Cancer Additional Family Medical History / Comment(s): Lung cancer <Cr Alvarez N - Last Filed: 08/25/21 21:35> General Exam Limitations: no limitations General appearance: alert, in distress Head exam: Present: atraumatic, normocephalic Eye exam: Present: scleral icterus ENT exam: Present: mucous membranes dry Neck exam: Present: normal inspection. Absent: tenderness, meningismus Respiratory exam: Present: respiratory distress, wheezes, rales, decreased breath sounds Cardiovascular Exam: Present: regular rate, irregular rhythm GI/Abdominal exam: Present: soft, distended. Absent: tenderness, guarding, rebound Extremities exam: Present: pedal edema Neurological exam: Present: alert, oriented X3 Psychiatric exam: Present: normal affect, normal mood Skin exam: Present: warm, dry, pallor, other (Jaundice) <Cr Alvarez N - Last Filed: 08/25/21 21:35> General appearance: alert, in no apparent distress Head exam: Present: atraumatic, normocephalic, normal inspection Eye exam: Present: normal appearance, PERRL, EOMI. Absent: scleral icterus, conjunctival injection, periorbital swelling ENT exam: Present: normal exam, mucous membranes moist Neck exam: Present: normal inspection. Absent: tenderness, meningismus, lymphadenopathy Respiratory exam: Present: normal lung sounds bilaterally. Absent: respiratory distress, wheezes, rales, rhonchi, stridor Cardiovascular Exam: Present: regular rate, normal rhythm, normal heart sounds. Absent: systolic murmur, diastolic murmur, rubs, gallop, clicks GI/Abdominal exam: Present: soft, normal bowel sounds. Absent: distended, tenderness, guarding, rebound, rigid Extremities exam: Present: normal inspection, full ROM, normal capillary refill. Absent: tenderness, pedal edema, joint swelling, calf tenderness Back exam: Present: normal inspection Neurological exam: Present: alert, oriented X3, CN II-XII intact Psychiatric exam: Present: normal affect, normal mood Skin exam: Present: warm, dry, intact, normal color. Absent: rash <Roskopp,Alex B - Last Filed: 08/25/21 23:15> - General Exam Comments Initial Comments: mild jaundice (Alex Hansen) Course <Cr Alvarez - Last Filed: 08/25/21 21:35> <Alex Hansen - Last Filed: 08/25/21 23:15> Vital Signs 08/25/21 08/25/21 08/25/21 19:39 20: 23:00 Temperature 98 F Pulse Rate 134 H 90 93 Respiratory 22 24 16 Rate Blood Pressure 99/70 99/70 106/66 O2 Sat by Pulse 96 90 L Oximetry - Reevaluation(s) Reevaluation #1: 08/25/21 2100 Patient care signed out to Dr. Hansen At shift change a laboratory testing and imaging. (Cr Alvarez) Reevaluation #2: 08/25/21 23:12 medical record is reviewed (Alex Hansen) Reevaluation #3: 08/25/21 23:12 patient continues to refuse Pinto catheter (Alex Hansen) EKG Findings - EKG Comments: EKG Findings:: EKG, very poor quality, suspect underlying sinus mechanism significant respiratory artifact ventricular rate of 90, QRS duration is 90, narrow complex, QTC 377, poor quality EKG without ST segment elevation. <Cr Alvarez - Last Filed: 08/25/21 21:35> Medical Decision Making - Lab Data Result diagrams: 08/25/21 20:20 08/25/21 20:20 <Cr Alvarez - Last Filed: 08/25/21 21:35> - Lab Data Result diagrams: 08/25/21 20:20 08/25/21 20:20 - Radiology Data Radiology results: report reviewed (chest x-rays negative for acute disease), image reviewed <Alex Hansen - Last Filed: 08/25/21 23:15> - Medical Decision Making 71-year-old male presenting with dyspnea, end-stage COPD. Patient is edematous, with peripheral edema. He is jaundiced. He states he was recently at [facility] and had stent placed for bilirubin of 36. He is following with oncology for suspected liver cancer. He has no abdominal pain. No fever. No central chest pain. He's diminished bilaterally on exam. He has a leukocytosis of 20, hemoglobin is 12. His bilirubin is significantly improved after stenting at [facility]. He is in renal failure with a creatinine of 7.2 and a BUN of 114. IV fluid is initiated for this patient. Pinto catheter will be placed. I did discuss case both with the admitting team covered by [employer] and the research geologist is been paged awaiting callback Pulmonology will be placed on consult. (Cr Alvarez) 71 male DF for evaluation, patient does have end-stage COPD liver cancer jaundice, patient resisted stent placed for significant elevated bilirubin. Patient currently and significant renal failure will be consult by nephrology for possible dialysis secondary to elevated potassium elevated potassium treated here in the ER (Alex Hansen) - Lab Data Lab Results 08/25/21 08/25/21 08/25/21 Range/Units 20:20 20:20 20:20 WBC 21.7 H (3.8-10.6) k/uL RBC 3.66 L (4.30-5.90) m/uL Hgb 12.3 L D (13.0-17.5) gm/dL Hct 36.2 L (39.0-53.0) % MCV 98.9 (80.0-100.0) fL MCH 33.6 (25.0-35.0) pg MCHC 34.0 (31.0-37.0) g/dL RDW 16.8 H (11.5-15.5) % Plt Count 244 (150-450) k/uL MPV 7.0 Neutrophils % 91 % Lymphocytes % 3 % Monocytes % 4 % Eosinophils % 1 % Basophils % 0 % Neutrophils # 19.9 H (1.3-7.7) k/uL Lymphocytes # 0.7 L (1.0-4.8) k/uL Monocytes # 0.8 (0-1.0) k/uL Eosinophils # 0.2 (0-0.7) k/uL Basophils # 0.0 (0-0.2) k/uL Poikilocytosis Moderate Anisocytosis Slight Macrocytosis Slight PT 10.4 (9.0-12.0) sec INR 1.0 (<1.2) APTT 23.8 (22.0-30.0) sec Sodium 125 L (137-145) mmol/L Potassium 6.0 H (3.5-5.1) mmol/L Chloride 95 L (98-107) mmol/L Carbon Dioxide 14 L (22-30) mmol/L Anion Gap 16 mmol/L BUN 114 H* (9-20) mg/dL Creatinine 7.20 H* (0.66-1.25) mg/dL Est GFR (CKD-EPI)AfAm 8 (>60 ml/min/1.73 sqM) Est GFR (CKD-EPI)NonAf 7 (>60 ml/min/1.73 sqM) Glucose 89 (74-99) mg/dL Plasma Lactic Acid Keshawn (0.7-2.0) mmol/L Calcium 8.2 L (8.4-10.2) mg/dL Magnesium 3.3 H (1.6-2.3) mg/dL Total Bilirubin 3.7 H (0.2-1.3) mg/dL AST 43 (17-59) U/L ALT 34 (4-49) U/L Alkaline Phosphatase 201 H (38-126) U/L NT-Pro-B Natriuret Pep pg/mL Total Protein 6.5 (6.3-8.2) g/dL Albumin 3.4 L (3.5-5.0) g/dL 08/25/21 08/25/21 Range/Units 20:20 20:20 WBC (3.8-10.6) k/uL RBC (4.30-5.90) m/uL Hgb (13.0-17.5) gm/dL Hct (39.0-53.0) % MCV (80.0-100.0) fL MCH (25.0-35.0) pg MCHC (31.0-37.0) g/dL RDW (11.5-15.5) % Plt Count (150-450) k/uL MPV Neutrophils % % Lymphocytes % % Monocytes % % Eosinophils % % Basophils % % Neutrophils # (1.3-7.7) k/uL Lymphocytes # (1.0-4.8) k/uL Monocytes # (0-1.0) k/uL Eosinophils # (0-0.7) k/uL Basophils # (0-0.2) k/uL Poikilocytosis Anisocytosis Macrocytosis PT (9.0-12.0) sec INR (<1.2) APTT (22.0-30.0) sec Sodium (137-145) mmol/L Potassium (3.5-5.1) mmol/L Chloride (98-107) mmol/L Carbon Dioxide (22-30) mmol/L Anion Gap mmol/L BUN (9-20) mg/dL Creatinine (0.66-1.25) mg/dL Est GFR (CKD-EPI)AfAm (>60 ml/min/1.73 sqM) Est GFR (CKD-EPI)NonAf (>60 ml/min/1.73 sqM) Glucose (74-99) mg/dL Plasma Lactic Acid Keshawn 1.3 (0.7-2.0) mmol/L Calcium (8.4-10.2) mg/dL Magnesium (1.6-2.3) mg/dL Total Bilirubin (0.2-1.3) mg/dL AST (17-59) U/L ALT (4-49) U/L Alkaline Phosphatase (38-126) U/L NT-Pro-B Natriuret Pep 944 pg/mL Total Protein (6.3-8.2) g/dL Albumin (3.5-5.0) g/dL Critical Care Time Critical Care Time: Yes Total Critical Care Time: 35 <Cr Alvarez - Last Filed: 08/25/21 21:35> Disposition Is patient prescribed a controlled substance at d/c from ED?: No Decision to Admit Reason: Admit from EC Decision Date: 08/25/21 Decision Time: : <Cr Alvarez - Last Filed: 08/25/21 21:35> <Alex Hansen - Last Filed: 08/25/21 23:15> Clinical Impression: Acute exacerbation of chronic obstructive pulmonary disease, Fever, Weakness, Acute renal failure, Hyperkalemia, Leukocytosis, Hyponatremia, Tachycardia, Hypoxia, Renal failure Disposition: ADMITTED IP TO THIS [facility] Condition: Serious
[2021-08-25 20:35] LABS: Anisocytosis Slight; Basophils % (A) 0 %; Eosinophils # (A) 0.2 k/uL (0-0.7); Eosinophils % (A) 1 %; HCT 36.2 % (39.0-53.0); Lymphocytes # (A) 0.7 k/uL (1.0-4.8); Lymphocytes % (A) 3 %; MCH 33.6 pg (25.0-35.0); MCV 98.9 fL (80.0-100.0); Macrocytosis Slight; Monocytes # (A) 0.8 k/uL (0-1.0); Monocytes % (A) 4 %; Neutrophils # (A) 19.9 k/uL (1.3-7.7); Neutrophils % (A) 91 %; Platelet Count 244 k/uL (150-450); Poikilocytosis Moderate; RBC 3.66 m/uL (4.30-5.90); RDW 16.8 % (11.5-15.5); WBC 21.7 k/uL (3.8-10.6)
[2021-08-25 20:43] LABS: HGB 12.3 gm/dL (13.0-17.5)
[2021-08-25 20:44] LABS: Partial Thromboplastin Time 23.8 sec (22.0-30.0); Prothrombin Time 10.4 sec (9.0-12.0)
[2021-08-25 20:47] LABS: Albumin 3.4 g/dL (3.5-5.0); Calcium 8.2 mg/dL (8.4-10.2); Magnesium 3.3 mg/dL (1.6-2.3); Total Bilirubin 3.7 mg/dL (0.2-1.3); Total Protein 6.5 g/dL (6.3-8.2)
[2021-08-25] MEDS ORDERED: SODIUM CHLORIDE 0.9% 500 ML 500 ML IV ONE (21:00)
[2021-08-25] MEDS ORDERED: IPRATROPIUM-ALBUTEROL 3 ML NEB INHALATION PRN (21:02)
[2021-08-25] MEDS ORDERED: CEFEPIME 2 GM in SODIUM CHLORIDE 0.9% 100 ML IVPB STA (21:19)
[2021-08-25] MEDS ORDERED: AZITHROMYCIN 500 MG in SODIUM CHLORIDE 0.9% 250 ML IVPB STA (21:20)
[2021-08-25] MEDS ORDERED: CALCIUM GLUCONATE 1 GM in SODIUM CHLORIDE 0.9% 100 ML IVPB ONE (21:27)
--- NOTE | 2021-08-25 22:17 | XR ---
EXAMINATION TYPE: XR chest 2V DATE OF EXAM: 08/25/2021 9:14 PM COMPARISON:Chest radiographs from 06/13/2021 TECHNIQUE: XR chest 2V Frontal and lateral views of the chest. CLINICAL INDICATION:Male, 71 years old with history of difficulty breathing; FINDINGS: Lungs/Pleura: There is flattening of the diaphragm with increased lucency of the lungs. No evidence o f pneumothorax, pleural effusion or focal consolidation. Pulmonary vascularity: Unremarkable. Heart/mediastinum: Cardiomediastinal silhouette is unremarkable. Musculoskeletal: No acute osseous pathology. IMPRESSION: 1. No acute cardiopulmonary disease process. 2. COPD changes.
[2021-08-25] MEDS: SODIUM CHLORIDE 0.9% 1,000 ML IV SCH (22:37)
[2021-08-25] MEDS ORDERED: SODIUM BICARB 8.4% 50 ML SYR (1 MEQ/ML) IV STA ×2 (22:58)
[2021-08-25] MEDS ORDERED: INSULIN REGULAR 100 UNIT/ML VIAL (IV) IV ONE (22:58)
[2021-08-25] MEDS ORDERED: DEXTROSE 50% SYRINGE 50 ML IVP STA (22:58)
[2021-08-25] MEDS ORDERED: SODIUM CHLORIDE 0.9% 1,000 ML IV ONE (23:13)
[2021-08-26] MEDS: methylPREDNISolone SOD SUCCI 125 MG/2 ML VIAL IV SCH ×3 (01:27→12:12)
[2021-08-26] MEDS ORDERED: ALBUTEROL NEB (CONC) 2.5 MG/0.5 ML INHALATION SCH (08:00)
[2021-08-26] MEDS: IPRATROPIUM-ALBUTEROL 3 ML NEB INHALATION SCH ×4 (08:12→19:37)
[2021-08-26 08:20] LABS: Anisocytosis Slight; Basophils # (A) 0.1 k/uL (0-0.2); Basophils % (A) 0 %; Eosinophils # (A) 0.1 k/uL (0-0.7); Eosinophils % (A) 0 %; HCT 36.1 % (39.0-53.0); HGB 11.8 gm/dL (13.0-17.5); Lymphocytes # (A) 0.3 k/uL (1.0-4.8); Lymphocytes % (A) 1 %; MCH 32.3 pg (25.0-35.0); MCHC 32.6 g/dL (31.0-37.0); MCV 98.9 fL (80.0-100.0); Macrocytosis Slight; Mean Platelet Volume 7.2; Monocytes # (A) 0.2 k/uL (0-1.0); Monocytes % (A) 1 %; Neutrophils # (A) 21.9 k/uL (1.3-7.7); Neutrophils % (A) 97 %; Platelet Count 212 k/uL (150-450); Poikilocytosis Moderate; RBC 3.65 m/uL (4.30-5.90); RDW 16.5 % (11.5-15.5); WBC 22.6 k/uL (3.8-10.6)
[2021-08-26 08:32] LABS: African American GFR (CKD) 8 (>60 ml/min/1.73 sqM); Anion Gap 14 mmol/L; Calcium 7.8 mg/dL (8.4-10.2); Carbon Dioxide 15 mmol/L (22-30); Chloride 97 mmol/L (98-107); Glucose 145 mg/dL (74-99); Non-African American GFR(CKD) 7 (>60 ml/min/1.73 sqM); Sodium 126 mmol/L (137-145)
[2021-08-26 08:38] LABS: Blood Urea Nitrogen 119 mg/dL (9-20)
[2021-08-26 08:41] LABS: Potassium 6.2 mmol/L (3.5-5.1)
[2021-08-26] MEDS ORDERED: SODIUM POLYSTYRENE SULFONATE 15 GM/60 ML BOTTLE PO STA (09:35)
[2021-08-26] MEDS ORDERED: DEXTROSE 50% SYRINGE 50 ML IVP STA (09:35)
[2021-08-26] MEDS ORDERED: INSULIN REGULAR 100 UNIT/ML VIAL (IV) IV ONE (09:45)
[2021-08-26] MEDS: SODIUM CHLORIDE 0.9% 1,000 ML IV SCH (09:56)
--- NOTE | 2021-08-26 12:34 | P.CNPUL ---
History of Present Illness Consult date: 08/26/21 Reason for consult: dyspnea, COPD History of present illness: 70-year-old male patient with advanced COPD with an FEV1 of 32% of predicted, maintained on accommodation Symbicort Spiriva and prednisone at 5 mg daily basis for COPD, comes in to the bathroom because of worsening shortness of breath. Patient was in the hospital back in March 2020 and May 2021 for COPD exacerbation. The patient is coming in for essentially the same. He was seen yesterday in the emergency department complaining of worsening shortness of breath. Denied having any chest pain or pleurisy. He had increased cough and dyspnea. No altered mentation. No signs of any CO2 narcosis. Apparently was diagnosed also to have liver cancer and he demonstrated some signs of peripheral edema, increased lower extremity swelling, increased abdominal swelling and he developed also increased jaundiced. He was recently seen at [facility] for insertion of a biliary/pancreatic stent and a stent was placed to relieve his obstructive jaundice. His bilirubin was as high as 36. He has been followed up with oncology also. The patient's LFTs have been quite elevated and they have improved after the insertion of a biliary stent. Most recent bilirubin is down to 3.7. His AST is down to 43 and ALT is down to 34. His alkaline phosphatase is down to 201. His code 19 testing was negative. Nevertheless, the patient developed an acute kidney injury, creatinine was up to 4.7.2 and his sodium was down to 125 with a potassium level of 6.0 and a serum b icarb of 14 with an anion gap of 16. White cell count was 21 with a hemoglobin of 12.3 and platelets of 244. Chest x-ray was consistent with hyperinflation and COPD without any acute cardio pulmonary process. In terms of his hyperkalemia, the patient did not show any acute EKG changes. His EKG showed some nonspecific ST segment abnormalities and there was a lot of motion artifact. No hyperacute T waves. The patient was given calcium gluconate, D50 insulin, and bicarb a total of 100 mEq and the patient was given 2 L of normal saline bolus and another 500 mL of normal saline bolus and currently the patient on normal saline at the rate of 75 mL an hour. He was also given Kayexalate 15 g 1. He has not been seen by nephrology at. I came to find out that the patient has seen Dr. Sandra from oncology. Note that his renal function back in June 2021 was within normal limits and this is obvious an acute kidney injury. Review of Systems Constitutional: Reports weight gain Eyes: denies as per HPI, denies blurred vision, denies bulging eye, denies decreased vision, denies diplopia, denies discharge, denies dry eye, denies irritation, denies itching, denies pain, denies photophobia, denies loss of peripheral vision, denies loss of vision, denies tunnel vision/blind spots Ears: deny: decreased hearing, ear discharge, earache, tinnitus Ears, nose, mouth and throat: Denies headache, Denies sore throat Breasts: absent: as per HPI, gynecomastia Cardiovascular: Reports decreased exercise tolerance, Reports dyspnea on exertion Respiratory: Reports cough with sputum, Reports dyspnea Gastrointestinal: Reports as per HPI obstructive jaundice, post insertion of a biliary stent/pancreatic stent along with some jaundice and ascites. Genitourinary: Reports as per HPI Musculoskeletal: Reports as per HPI Musculoskeletal: absent: ankle pain, ankle stiffness, ankle swelling Integumentary: Reports as per HPI Neurological: Reports as per HPI Psychiatric: Reports as per HPI Endocrine: Reports as per HPI Hematologic/Lymphatic: Reports as per HPI Allergic/Immunologic: Reports as per HPI Past Medical History Past Medical History: COPD, Hypertension, Respiratory Disorder Additional Past Medical History / Comment(s): HX RHEUMATIC FEVER AGE 8-NO PRO BLEMS. obstructive jaundice History of Any Multi-Drug Resistant Organisms: None Reported Past Surgical History: Heart Catheterization Additional Past Surgical History / Comment(s): Bilat cataracts, stents in pancreas. Past Anesthesia/Blood Transfusion Reactions: No Reported Reaction Past Psychological History: No Psychological Hx Reported Additional Psychological History / Comment(s): Pt has his brother living with him. Pt is independent. He has a nebulizer. Smoking Status: Former smoker Past Alcohol Use History: None Reported Additional Past Alcohol Use History / Comment(s): Pt started smoking in 1963 and quit in 2011. He states he used to drink few beers/ day but has not had one in 4 months Past Drug Use History: None Reported - Past Family History Father Family Medical History: Cancer Additional Family Medical History / Comment(s): liver cancer-pt did not speak to father much. Mother Family Medical History: Cancer Additional Family Medical History / Comment(s): Lung cancer Medications and Allergies Home Medications Medication Instructions Recorded Confirmed Type Tiotropium 18 Mcg/Puff [Spiriva] 1 cap INHALATION RT-DAILY 11/28/13 08/25/21 History Budesonide-Formot 160-4.5 Mcg 2 puff INHALATION RT-BID 12/29/13 08/25/21 History [Symbicort 160-4.5 Mcg Inhaler] Furosemide [Lasix] 20 mg PO DAILY 08/25/21 08/25/21 History Levofloxacin [Levaquin] 500 mg PO DAILY 08/25/21 08/25/21 History Allergies Allergy/AdvReac Type Severity Reaction Status Date / Time No Known Allergies Allergy Verified 08/25/21 21:07 Physical Exam Vitals: Vital Signs Temp Pulse Pulse Resp BP BP Pulse Ox 08/26/21 08:22 72 08/26/21 08:16 100 08/26/21 08:12 70 08/26/21 08:00 17 08/26/21 07:19 97.5 F L 89 17 101/66 99 08/26/21 03:44 100 08/26/21 00:20 68 20 99/60 86 L 08/26/21 00:15 20 08/25/21 23:42 97.3 F L 68 20 99/60 96 08/25/21 23:00 93 16 106/66 90 L 08/25/21 20:26 90 24 99/70 08/25/21 19:39 98 F 134 H 22 99/70 96 Intake and Output 08/25/21 08/26/21 08/26/21 22:59 06:59 14:59 Intake Total 1000 Output Total 350 Balance 650 Intake: Intake, IV Titration 450 Amount Sodium Chloride 0.9% 1, 450 000 ml @ 75 mls/hr IV . [id number] Rx#:[id number] Oral 550 Output: Urine 350 Other: Voiding Method Toilet Indwelling Catheter # Bowel Movements 1 Weight 92 kg 92 kg Patient is obese, comfortable not in acute respiratory distress and the patient is not using accessory muscles of breathing, the patient is jaundice. Head exam was generally normal. There was no scleral icterus or corneal arcus. Mucous membranes were moist. Neck was supple and without jugular venous distension, thyromegaly, or carotid bruits. Carotids were easily palpable bilaterally. There was no adenopathy. The patient is a Mallampati class IV. Lungs sounds are diminished and the patient has diffuse expiratory wheezes throughout the lung hernández bilaterally and prolongation of exhalation phase of breathing Cardiac exam revealed the PMI to be normally situated and sized. The rhythm was regular and no extrasystoles were noted during several minutes of auscultation. The first and second heart sounds were normal and physiologic splitting of the second heart sound was noted. There were no murmurs, rubs, clicks, or gallops. Abdominal exam revealed normal bowel sounds. The abdomen was soft, non-tender, and without masses, organomegaly, or appreciable enlargement of the abdominal aorta. The patient has abdominal distention and ascites. Organs cannot be accurately palpated Examination of the extremities revealed easily palpable radial, femoral and pedal pulses. There was no cyanosis, clubbing and there is significant edema in all 4 extremities pressure lower extremities bilaterally. There is +2-3 pitting edema. Examination of the skin revealed no evidence of significant rashes, suspicious appearing nevi or other concerning lesions. The patient has jaundice. Neurologically, the patient is awake and alert and the patient does not have any focal neurological deficit. Cranial nerves are essentially intact. Results - Laboratory Findings CBC and BMP: 08/26/21 08:07 08/26/21 08:07 PT/INR, D-dimer PT 10.4 sec (9.0-12.0) 08/25/21 20:20 INR 1.0 (<1.2) 08/25/21 20:20 Abnormal lab findings: Abnormal Labs 08/25/21 08/25/21 08/26/21 20:20 20:20 08:07 WBC 21.7 H 22.6 H RBC 3.66 L 3.65 L Hgb 12.3 L D 11.8 L Hct 36.2 L 36.1 L RDW 16.8 H 16.5 H Neutrophils # 19.9 H 21.9 H Lymphocytes # 0.7 L 0.3 L Sodium 125 L Potassium 6.0 H Chloride 95 L Carbon Dioxide 14 L BUN 114 H* Creatinine 7.20 H* Glucose Calcium 8.2 L Magnesium 3.3 H Total Bilirubin 3.7 H Alkaline Phosphatase 201 H Albumin 3.4 L 08/26/21 08:07 WBC RBC Hgb Hct RDW Neutrophils # Lymphocytes # Sodium 126 L Potassium 6.2 H* Chloride 97 L Carbon Dioxide 15 L BUN 119 H* Creatinine 7.32 H* Glucose 145 H Calcium 7.8 L Magnesium Total Bilirubin Alkaline Phosphatase Albumin - Diagnostic Findings Chest x-ray: image reviewed Assessment and Plan Plan: 1 COPD, advanced, severe. Stable with a baseline FEV1 of 32% of predicted and the patient is maintained on a combination of Symbicort Spiriva and prednisone on outpatient basis. 2 obstructive jaundice with an underlying malignancy which could be either pancreatic, biliary or hepatic. The patient underwent stenting of the biliary/pancreatic duct and there was a leave of the obstructive jaundice with improvement in LFTs. Nevertheless, he continues to have increased amount of ascites and lower extremity edema. In addition, the patient has developed a acute kidney injury. 3 acute kidney injury, currently has a Pinto catheter in place. The patient remains oliguric. Urine output is limited at this point in time. 4 hypertension 5 mild CAD with mild pulmonary hypertension based on echocardiogram that was done on 12/29/2013 6 mild lactic acidosis, secondary to above 7 acute hyperkalemia 8 acute leukocytosis with a white cell count 22.6 9 acute hyponatremia with a sodium level of 126 Plan Consult nephrology [facility] hematology oncology Keep the Pinto catheter in place Switch this patient a bicarb infusion at the rate of 100 mL an hour of sodium bicarbonate of 100 with a total of 150 mEq Monitor the potassium level and repeat another level after they acute hyperkalemia treatment was offered Chest x-ray was reviewed, consistent with COPD without any acute abnormalities I am not sure where was the workup done regarding his malignancy. I think he was evaluated at [facility]. I do not see any imaging from our hospital. I think is reasonable to obtain a CAT scan of the chest abdomen and pelvis specially decided not been done recently. Meanwhile, an ultrasound the kidneys will be needed to rule out obstructive uropathy/hydronephrosis. The Pinto catheter in place. Awaiting some more help of the rest of the consultants. We'll continue to follow. DC IV Solu-Medrol.
[2021-08-26] MEDS: DEXTROSE 5% IN WATER 1,000 ML with SODIUM BICARB (1 MEQ/ML) 150 ML IV SCH (13:28)
--- NOTE | 2021-08-26 14:01 | P.HPIM ---
History of Present Illness H&P Date: 08/26/21 Chief Complaint: Shortness of breath Patient is a 71-year-old male with a known history of COPD, hypertension, obstructive jaundice, previous history of smoking and recently diagnosed with liver cancer presents to ER with complaints of with complaints of increased shortness of breath and cough. Denies any complaints of chest pain. No fever no chills. Patient is also complaining of abdominal distention and increased recurved and bilateral worsening leg swelling and also yellowish discoloration. Patient was recently admitted to hospital in due to acute COPD exacerbation and was discharged on 06/15/2021. Patient also recently diagnosed with liver cancer and was recently seen at [facility] for biliary stent placement for obstructive jaundice. Patient was seen by oncology as well. Laboratory data showed AST 43 ALT 34 alk phos 201 and bilirubin level is 3.7 on this admission. Other laboratory data showed sodium 125 potassium 6.0 chloride 95 bicarbonate 14 BUN 114 and creatinine 7.2 WBC 21.7 hemoglobin 12.3 and platelets 244 . proBNP is 944 and albumin 3.4 Chest x-ray showed no acute cardiopulmonary process. COPD changes. EKG showed nonspecific ST-T wave changes. Patient was given calcium gluconate, D50 and insulin due to hyperkalemia. Potassium level is trending down. Patient is being continued on normal saline. A Pinto cath was placed. Review of Systems Constitutional: Patient denies any fever or chills . No generalized weakness or weight loss. Abdomen: Patient denied nausea vomiting and diarrhea and abdominal pain. Abdominal distention and Cardiovascular: Patient denies any chest pain or short of breath no palpitations. Respiratory: patient denied any cough is from production. Patient does have shortness of breath Neurologic: Patient denied any numbness or tingling headache. Musculoskeletal: Patient denies any complaints of joint swelling or deformity. Skin: Yellowish discoloration Psychiatric: Negative Endocrine: No heat or cold intolerance. No recent weight gain. Genitourinary: No dysuria or hematuria. All other 14 point ROS negative except the above Past Medical History Past Medical History: COPD, Hypertension, Respiratory Disorder Additional Past Medical History / Comment(s): HX RHEUMATIC FEVER AGE 8-NO PROBLEMS History of Any Multi-Drug Resistant Organisms: None Reported Past Surgical History: Heart Catheterization Additional Past Surgical History / Comment(s): Bilat cataracts, stents in pancreas. Past Anesthesia/Blood Transfusion Reactions: No Reported Reaction Past Psychological History: No Psychological Hx Reported Additional Psychological History / Comment(s): Pt has his brother living with him. Pt is independent. He has a nebulizer. Smoking Status: Former smoker Past Alcohol Use History: None Reported Additional Past Alcohol Use History / Comment(s): Pt started smoking in 1963 and quit in 2011. He states he used to drink few beers/ day but has not had one in 4 months Past Drug Use History: None Reported - Past Family History Father Family Medical History: Cancer Additional Family Medical History / Comment(s): liver cancer-pt did not speak to father much. Mother Family Medical History: Cancer Additional Family Medical History / Comment(s): Lung cancer Medications and Allergies Home Medications Medication Instructions Recorded Confirmed Type Tiotropium 18 Mcg/Puff [Spiriva] 1 cap INHALATION RT-DAILY 11/28/13 08/25/21 H istory Budesonide-Formot 160-4.5 Mcg 2 puff INHALATION RT-BID 12/29/13 08/25/21 History [Symbicort 160-4.5 Mcg Inhaler] Furosemide [Lasix] 20 mg PO DAILY 08/25/21 08/25/21 History Levofloxacin [Levaquin] 500 mg PO DAILY 08/25/21 08/25/21 History Allergies Allergy/AdvReac Type Severity Reaction Status Date / Time No Known Allergies Allergy Verified 08/25/21 21:07 Physical Exam Vitals: Vital Signs Temp Pulse Pulse Resp BP BP Pulse Ox 08/26/21 08:22 72 08/26/21 08:16 100 08/26/21 08:12 70 08/26/21 08:00 17 08/26/21 07:19 97.5 F L 89 17 101/66 99 08/26/21 03:44 100 08/26/21 00:20 68 20 99/60 86 L 08/26/21 00:15 20 08/25/21 23:42 97.3 F L 68 20 99/60 96 08/25/21 23:00 93 16 106/66 90 L 08/25/21 20:26 90 24 99/70 08/25/21 19:39 98 F 134 H 22 99/70 96 Intake and Output 08/25/21 08/26/21 08/26/21 22:59 06:59 14:59 Intake Total 1000 Output Total 350 Balance 650 Intake: Intake, IV Titration 450 Amount Sodium Chloride 0.9% 1, 450 000 ml @ 75 mls/hr IV . [id number] [facility] Rx#:[id number] Oral 550 Output: Urine 350 Other: Voiding Method Toilet Indwelling Catheter # Bowel Movements 1 Weight 92 kg 92 kg PHYSICAL EXAMINATION: Patient is lying in the bed comfortably, no acute distress, awake alert and oriented.. HEENT: Normocephalic. Neck is supple. Pupils reactive. Nostrils clear. Oral cavity is moist. Neck reveals no JVD, carotid bruits, or thyromegaly. CHEST EXAMINATION: Trachea is central. Symmetrical expansion. Bibasilar diminished sounds. No wheezing. Lung hernández clear to auscultation and percussion. CARDIAC: Normal S1, S2 with no gallops. No murmurs ABDOMEN: Soft. Bowel sounds present. Distended with ascites. Nontender.. No organomegaly. No abdominal bruits. Extremities: Bilateral lower extremity 3+ edema. No clubbing or cyanosis Neurologically awake, alert, oriented x2-3 with well-coordinated movements. No gross focal deficits noted Skin: No rash or skin lesions. Psychiatric: Coperative. Nonsuicidal Musculoskeletal: No joint swelling or deformity. Normal range of motion. Results CBC & Chem 7: 08/26/21 08:07 08/26/21 12:11 Labs: Abnormal Lab Results - Last 24 Hours (Table) 08/25/21 08/25/21 08/26/21 Range/Units 20:20 20:20 08:07 WBC 21.7 H 22.6 H (3.8-10.6) k/uL RBC 3.66 L 3.65 L (4.30-5.90) m/uL Hgb 12.3 L D 11.8 L (13.0-17.5) gm/dL Hct 36.2 L 36.1 L (39.0-53.0) % RDW 16.8 H 16.5 H (11.5-15.5) % Neutrophils # 19.9 H 21.9 H (1.3-7.7) k/uL Lymphocytes # 0.7 L 0.3 L (1.0-4.8) k/uL Sodium 125 L (137-145) mmol/L Potassium 6.0 H (3.5-5.1) mmol/L Chloride 95 L (98-107) mmol/L Carbon Dioxide 14 L (22-30) mmol/L BUN 114 H* (9-20) mg/dL Creatinine 7.20 H* (0.66-1.25) mg/dL Glucose (74-99) mg/dL Calcium 8.2 L (8.4-10.2) mg/dL Magnesium 3.3 H (1.6-2.3) mg/dL Total Bilirubin 3.7 H (0.2-1.3) mg/dL Alkaline Phosphatase 201 H (38-126) U/L Albumin 3.4 L (3.5-5.0) g/dL 08/26/21 Range/Units 08:07 WBC (3.8-10.6) k/uL RBC (4.30-5.90) m/uL Hgb (13.0-17.5) gm/dL Hct (39.0-53.0) % RDW (11.5-15.5) % Neutrophils # (1.3-7.7) k/uL Lymphocytes # (1.0-4.8) k/uL Sodium 126 L (137-145) mmol/L Potassium 6.2 H* (3.5-5.1) mmol/L Chloride 97 L (98-107) mmol/L Carbon Dioxide 15 L (22-30) mmol/L BUN 119 H* (9-20) mg/dL Creatinine 7.32 H* (0.66-1.25) mg/dL Glucose 145 H (74-99) mg/dL Calcium 7.8 L (8.4-10.2) mg/dL Magnesium (1.6-2.3) mg/dL Total Bilirubin (0.2-1.3) mg/dL Alkaline Phosphatase (38-126) U/L Albumin (3.5-5.0) g/dL Thrombosis Risk Factor Assmnt - DVT/VTE Prophylaxis DVT/VTE Prophylaxis: Pharmacologic Prophylaxis ordered - Choose All That Apply Each Factor Represents 1 point: Abnormal pulmonary function (COPD), Medical pt on bed rest, Swollen legs (current) Other Risk Factors: Yes Each Risk Factor Represents 2 Points: Age 61-74 years Other congenital or acquired thrombophilia - If yes, enter type in comment: No Thrombosis Risk Factor Assessment Total Risk Factor Score: 5 Thrombosis Risk Factor Assessment Level: High Risk Assessment and Plan Assessment: Acute kidney injury possible ATN and hepatorenal. Creatinine 7.2 on admission. Previous baseline creatinine within normal limits. Hyperkalemia secondary to above Obstructive jaundice with underlying malignancy in the hepatic, pancreatobiliary system status post biliary stent placement at [facility]. Ascites and bilateral lower extremity edema COPD not in exacerbation Hypertension Hypervolemic hyponatremia Leukocytosis DVT prophylaxis with heparin subcu Plan: Patient will be continued on gentle IV hydration and will be started on bicarb drip. Follow-up potassium level and continue to monitor renal function. Ultrasound of kidneys and abdomen was ordered. Currently on Pinto catheter. Patient was given empiric antibiotics in the ER. Nephrology, oncology and pulmonary was consulted. Prognosis is guarded at this time. Time with Patient: Greater than 30
--- NOTE | 2021-08-26 14:06 | US ---
EXAMINATION TYPE: US kidneys/renal and bladder DATE OF EXAM: 08/26/2021 COMPARISON: NONE CLINICAL HISTORY: acute renal failure. renal failure EXAM MEASUREMENTS: Right Kidney: 10.3 x 5.3 x 4.2 cm Left Kidney: 11.8 x 4.8 x 4.1 cm Right Kidney: No hydronephrosis or masses seen Left Kidney: No hydronephrosis or masses seen Bladder: Cather in place. Bilateral Jets seen: No There is no evidence for hydronephrosis at this point in time. No nephrolithiasis is seen. Cortical medullary differentiation is maintained. No masses are identified. Low-level internal echoes are noted incidentally within the gallbladder consistent with cholelithiasi s and possible tumefactive sludge IMPRESSION: Renal sizes as described. Cholelithiasis.
[2021-08-26] MEDS ORDERED: FUROSEMIDE 10 MG/ML 10 ML VIAL IV STA (14:38)
--- NOTE | 2021-08-26 14:45 | P.NPCON ---
History of Present Illness - Reason for Consult Consult date: 08/26/21 acute renal failure, hyperkalemia - Chief Complaint Shortness of breath - History of Present Illness 71-year-old gentleman coming to the hospital with the above complaints. Nephrology was consulted for acute kidney injury and hyperkalemia. Baseline creatinine 0.9 MG per DL on 07/21/2021. On admission creatinine was 7.2 with a potassium of 6.0. Very poor historian. Home medications does include Lasix 20 mg twice a day. He says his antihypertensive medications were discontinued but doesn't remember the name. He was recently hospitalized in June with a bilirubin of 32, transferred to [facility] for ERCP and stent placement. 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 Bilirubin currently around 3.2. He denies any nausea vomiting diarrhea. Hypotensive episodes on admission. Currently has Pinto catheter with minimal urine output. Review of Systems Constitutional: Reports as per HPI Past Medical History Past Medical History: COPD, Hypertension, Respiratory Disorder Additional Past Medical History / Comment(s): HX RHEUMATIC FEVER AGE 8-NO PROBLEMS History of Any Multi-Drug Resistant Organisms: None Reported Past Surgical History: Heart Catheterization Additional Past Surgical History / Comment(s): Bilat cataracts, stents in pancreas. Past Anesthesia/Blood Transfusion Reactions: No Reported Reaction Past Psychological History: No Psychological Hx Reported Additional Psychological History / Comment(s): Pt has his brother living with him. Pt is independent. He has a nebulizer. Smoking Status: Former smoker Past Alcohol Use History: None Reported Additional Past Alcohol Use History / Comment(s): Pt started smoking in 1963 and quit in 2011. He states he used to drink few beers/ day but has not had one in 4 months Past Drug Use History: None Reported - Past Family History Father Family Medical History: Cancer Additional Family Medical History / Comment(s): liver cancer-pt did not speak to father much. Mother Family Medical History: Cancer Additional Family Medical History / Comment(s): Lung cancer Medications and Allergies Home Medications Medication Instructions Recorded Confirmed Type Tiotropium 18 Mcg/Puff [Spiriva] 1 cap INHALATION RT-DAILY 11/28/13 08/25/21 History Budesonide-Formot 160-4.5 Mcg 2 puff INHALATION RT-BID 12/29/13 08/25/21 History [Symbicort 160-4.5 Mcg Inhaler] Furosemide [Lasix] 20 mg PO DAILY 08/25/21 08/25/21 History Levofloxacin [Levaquin] 500 mg PO DAILY 08/25/21 08/25/21 History Allergies Allergy/AdvReac Type Severity Reaction Status Date / Time No Known Allergies Allergy Verified 08/25/21 21:07 Physical Exam Vitals: Vital Signs Temp Pulse Pulse Resp BP BP Pulse Ox 08/26/21 12:38 72 08/26/21 12:30 75 08/26/21 08:22 72 08/26/21 08:16 100 08/26/21 08:12 70 08/26/21 08:00 17 08/26/21 07:19 97.5 F L 89 17 101/66 99 08/26/21 03:44 100 08/26/21 00:20 68 20 99/60 86 L 08/26/21 00:15 20 08/25/21 23:42 97.3 F L 68 20 99/60 96 08/25/21 23:00 93 16 106/66 90 L 08/25/21 20:26 90 24 99/70 08/25/21 19:39 98 F 134 H 22 99/70 96 Intake and Output 08/25/21 08/26/21 08/26/21 22:59 06:59 14:59 Intake Total 1000 Output Total 350 Balance 650 Intake: Intake, IV Titration 450 Amount Sodium Chloride 0.9% 1, 450 000 ml @ 75 mls/hr IV . [id number] [facility] Rx#:[id number] Oral 550 Output: Urine 350 Other: Voiding Method Toilet Indwelling Catheter # Bowel Movements 1 Weight 92 kg 92 kg No acute distress S1-S2 heard Decreased breath sounds Abdominal distention Edema Results - Lab Results Most recent lab results Calcium 7.8 mg/dL (8.4-10.2) L 08/26/21 08:07 Magnesium 3.3 mg/dL (1.6-2.3) H 08/25/21 20:20 08/26/21 08:07 08/26/21 12:11 Assessment and Plan Assessment: #1 oliguric acute kidney injury suspect hemodynamic ATN with low blood pressures. -Other differentials include HRS/AIN with levofloxacin use -Baseline creatinine 0.9 MG per DL [07/21/2021]. #2 hyperkalemia secondary to acute kidney injury #3 hypervolemic hyponatremia #4 metabolic acidosis #5 cholangiocarcinoma of the biliary duct Plan: #1 potassium improved with medical management. #2 agree with sodium bicarbonate drip. Give 1 dose of Lasix. If good response continue diuretics. #3 add midodrine for hemodynamic support #4 renal ultrasound noted no hydronephrosis. #5 no acute indication for renal replacement therapy at this time.
[2021-08-26] MEDS: MIDODRINE 5 MG TAB PO SCH ×2 (16:01→18:02)
[2021-08-26] MEDS: SYMBICORT 160-4.5 MCG INHALER INHALATION SCH (19:37)
--- NOTE | 2021-08-26 19:52 | P.CONS ---
History of Present Illness - Reason for Consult Consult date: 08/26/21 Cholangiocarcinoma. Liver Failure Requesting physician: Cr Alvarez - History of Present Illness This is a very nice patient who initially presented to [facility],on 07/21/2021 which obstructive jaundice,his TB was 36.3,ALK 1359,AST 618,ALT 544,he was transferred to [facility],CT abdomen/pelvis revealed intra and extra hepatic bile duct dilatation,MRI/MRCP revealed extensive intra and etra hepatic bile duct dilatation which extends to the level of proper hepatic duct where there is an abnormal circumferential stricture. Then,he was transferred to [facility] as outpatient,EUD done on 07/30/2021 revealed stricture in mid third of main bile duct which involve the cystic duct,no endosonographic abnormalities found in pancreas or liver. ERCP was performed and stent was placed into biliray duct.biopsy of bile duct was positive for adenocarcinoma. He is very tired,he could not make it to the exam table,no appetite but no weight loss,has significant edema in both legs,no nausea/vomting,his urine color is dark.at initial outpatient consult with Dr. cheng he had a discussion with the patient and his family today. We discussed his diagnosis,prognosis and treatment options. His performance status is poor. He is not a surgical candidate. We could consider systemic therapy on a palliative intent. Cisplatin/gemzar combination is used as first line,however,his PS may not permit the use of cisplatin,single agent gemzar or gemzar/oxaliplatin could be an option. We also discussed comfort care only. The patient would like to try systemic therapy,if poor tolerance or no response,he may consider comfort care. Also,obtained liquid biopsy and request NGS of recent biopsy (if possible),if F GFR or IDH1 mutation found,he could be a candidate for targeted therapy. In view of leg edema,I asked him to hold amlodipine,will add lasix,avoid salt He now presents with renal failure. On 08/08 creatinine was 1.5, total bili 13. Today Creatinine >7. He is suppose to start single therapy gemzar this week. Review of Systems All systems: negative Constitutional: Reports as per HPI Past Medical History Past Medical History: COPD, Hypertension, Respiratory Disorder Additional Past Medical History / Comment(s): HX RHEUMATIC FEVER AGE 8-NO PROBLEMS. obstructive jaundice History of Any Multi-Drug Resistant Organisms: None Reported Past Surgical History: Heart Catheterization Additional Past Surgical History / Comment(s): Bilat cataracts, stents in pancreas. Past Anesthesia/Blood Transfusion Reactions: No Reported Reaction Past Psychological History: No Psychological Hx Reported Additional Psychological History / Comment(s): Pt has his brother living with him. Pt is independent. He has a nebulizer. Smoking Status: Former smoker Past Alcohol Use History: None Reported Additional Past Alcohol Use History / Comment(s): Pt started smoking in 1963 and quit in 2011. He states he used to drink few beers/ day but has not had one in 4 months Past Drug Use History: None Reported - Past Family History Father Family Medical History: Cancer Additional Family Medical History / Comment(s): liver cancer-pt did not speak to father much. Mother Family Medical History: Cancer Additional Family Medical History / Comment(s): Lung cancer Medications and Allergies Home Medications Medication Instructions Recorded Confirmed Type Tiotropium 18 Mcg/Puff [Spiriva] 1 cap INHALATION RT-DAILY 11/28/13 08/25/21 History Budesonide-Formot 160-4.5 Mcg 2 puff INHALATION RT-BID 12/29/13 08/25/21 History [Symbicort 160-4.5 Mcg Inhaler] Furosemide [Lasix] 20 mg PO DAILY 08/25/21 08/25/21 History Levofloxacin [Levaquin] 500 mg PO DAILY 08/25/21 08/25/21 History Allergies Allergy/AdvReac Type Severity Reaction Status Date / Time No Known Allergies Allergy Verified 08/25/21 21:07 Physical Exam Vitals: Vital Signs Temp Pulse Pulse Resp BP BP Pulse Ox 08/26/21 12:38 72 08/26/21 12:30 75 08/26/21 08:22 72 08/26/21 08:16 100 08/26/21 08:12 70 08/26/21 08:00 17 08/26/21 07:19 97.5 F L 89 17 101/66 99 08/26/21 03:44 100 08/26/21 00:20 68 20 99/60 86 L 08/26/21 00:15 20 08/25/21 23:42 97.3 F L 68 20 99/60 96 08/25/21 23:00 93 16 106/66 90 L 08/25/21 20:26 90 24 99/70 08/25/21 19:39 98 F 134 H 22 99/70 96 Intake and Output 08/25/21 08/26/21 08/26/21 22:59 06:59 14:59 Intake Total 1000 Output Total 350 Balance 650 Intake: Intake, IV Titration 450 Amount Sodium Chloride 0.9% 1, 450 000 ml @ 75 mls/hr IV . [id number] [facility] Rx#:[id number] Oral 550 Output: Urine 350 Other: Voiding Method Toilet Indwelling Catheter # Bowel Movements 1 Weight 92 kg 92 kg - Constitutional General appearance: cooperative - EENT Eyes: EOMI ENT: hard of hearing, NA/AT - Neck Neck: normal ROM - Respiratory Respiratory: bilateral: diminished - Cardiovascular Rhythm: regularly irregular leg Peripheral Edema: bilateral: 2+ - Gastrointestinal General gastrointestinal: soft - Integumentary Integumentary: jaundiced - Musculoskeletal Musculoskeletal: generalized weakness - Psychiatric Psychiatric: A&O x's 3 Results CBC & Chem 7: 08/26/21 08:07 08/26/21 12:11 Labs: Abnormal Lab Results - Last 24 Hours (Table) 08/25/21 08/25/21 08/26/21 Range/Units 20:20 20:20 08:07 WBC 21.7 H 22.6 H (3.8-10.6) k/uL RBC 3.66 L 3.65 L (4.30-5.90) m/uL Hgb 12.3 L D 11.8 L (13.0-17.5) gm/dL Hct 36.2 L 36.1 L (39.0-53.0) % RDW 16.8 H 16.5 H (11.5-15.5) % Neutrophils # 19.9 H 21.9 H (1.3-7.7) k/uL Lymphocytes # 0.7 L 0.3 L (1.0-4.8) k/uL Sodium 125 L (137-145) mmol/L Potassium 6.0 H (3.5-5.1) mmol/L Chloride 95 L (98-107) mmol/L Carbon Dioxide 14 L (22-30) mmol/L BUN 114 H* (9-20) mg/dL Creatinine 7.20 H* (0.66-1.25) mg/dL Glucose (74-99) mg/dL Calcium 8.2 L (8.4-10.2) mg/dL Magnesium 3.3 H (1.6-2.3) mg/dL Total Bilirubin 3.7 H (0.2-1.3) mg/dL Alkaline Phosphatase 201 H (38-126) U/L Albumin 3.4 L (3.5-5.0) g/dL 08/26/21 08/26/21 Range/Units 08:07 12:11 WBC (3.8-10.6) k/uL RBC (4.30-5.90) m/uL Hgb (13.0-17.5) gm/dL Hct (39.0-53.0) % RDW (11.5-15.5) % Neutrophils # (1.3-7.7) k/uL Lymphocytes # (1.0-4.8) k/uL Sodium 126 L (137-145) mmol/L Potassium 6.2 H* 5.6 H (3.5-5.1) mmol/L Chloride 97 L (98-107) mmol/L Carbon Dioxide 15 L (22-30) mmol/L BUN 119 H* (9-20) mg/dL Creatinine 7.32 H* (0.66-1.25) mg/dL Glucose 145 H (74-99) mg/dL Calcium 7.8 L (8.4-10.2) mg/dL Magnesium (1.6-2.3) mg/dL Total Bilirubin (0.2-1.3) mg/dL Alkaline Phosphatase (38-126) U/L Albumin (3.5-5.0) g/dL Assessment and Plan (1) Cholangiocarcinoma Current Visit: Yes Status: Acute Code(s): C22.1 - INTRAHEPATIC BILE DUCT CARCINOMA SNOMED Code(s): 888853970 (2) Renal failure Current Visit: Yes Status: Acute Code(s): N19 - UNSPECIFIED KIDNEY FAILURE SNOMED Code(s): 55502880 (3) Acute respiratory failure with hypoxia Current Visit: No Status: Acute Code(s): J96.01 - ACUTE RESPIRATORY FAILURE WITH HYPOXIA SNOMED Code(s): 41508220 Plan: Admitted with acute renal failure and worsening liver failure. Ulrasound of kidneys no obstruction. He is suppose to begin first chemo this week under the care of Dr. Cheng. Await Nephrology recs Will folloup this week for further recs regarding treatment plan
[2021-08-26] MEDS: HEPARIN SODIUM,PORCINE/PF 5,000 UNIT/0.5 ML SYRINGE SQ SCH (20:58)
[2021-08-26 22:35] LABS: Anion Gap 21.1 mmol/L (10.00-18.00); Calcium 8.5 mg/dL (8.7-10.3); Carbon Dioxide 13.9 mmol/L (20.0-27.5); Potassium 5.7 mmol/L (3.5-5.5)
[2021-08-26 23:42] LABS: African American GFR (CKD) 8.1 (60.0-200.0)
[2021-08-27] MEDS: DEXTROSE 5% IN WATER 1,000 ML with SODIUM BICARB (1 MEQ/ML) 150 ML IV SCH ×2 (03:40→13:33)
[2021-08-27] MEDS: SYMBICORT 160-4.5 MCG INHALER INHALATION SCH ×2 (08:36→19:59)
[2021-08-27] MEDS: IPRATROPIUM-ALBUTEROL 3 ML NEB INHALATION SCH ×4 (08:36→19:59)
[2021-08-27] MEDS: HEPARIN SODIUM,PORCINE/PF 5,000 UNIT/0.5 ML SYRINGE SQ SCH ×2 (09:11→21:13)
[2021-08-27] MEDS: MIDODRINE 5 MG TAB PO SCH ×3 (09:11→18:26)
--- NOTE | 2021-08-27 09:32 | P.PN ---
Subjective Patient is seen in follow-up for acute kidney injury. No improvement in renal function so far this admission. Urine output documented is 1.4 L in the last 24 hours. Sitting up in chair. Denies chest pain or shortness of breath. Vital signs are stable. General: Sitting up in chair. Awake and alert. HEENT: Head exam is unremarkable. LUNGS:Breath sounds decreased. HEART: Rate and Rhythm are regular. ABDOMEN: Soft, nontender. EXTREMITITES: 1+ edema. Objective - Vital Signs Vital signs: Vital Signs Temp 97.5 F L 08/27/21 02:00 Pulse 90 08/27/21 08:48 Resp 18 08/27/21 02:00 BP 100/61 08/27/21 02:00 Pulse Ox 99 08/27/21 02:00 Intake & Output 08/26/21 08/27/21 08/27/21 18:59 06:59 18:59 Intake Total 450 480 Output Total 151 1302 Balance 299 -822 Intake: IV 450 Sodium Chloride 0.9% 1, 450 000 ml @ 75 mls/hr IV . [id number] [facility] Rx#:[id number] Oral 480 Output: Urine 150 1300 Uretheral (Pinto) 250 Stool 1 2 Other: Voiding Method Indwelling Catheter Indwelling Catheter # Bowel Movements 1 - Labs CBC & Chem 7: 08/26/21 08:07 08/26/21 16:05 Labs: Abnormal Lab Results - Last 24 Hours (Table) 08/26/21 08/26/21 08/26/21 Range/Units 12:11 12:11 16:05 Sodium 129 L (135-145) mmol/L Potassium 5.6 H 5.7 H (3.5-5.1) mmol/L Chloride 94 L (96-109) mmol/L Carbon Dioxide 13.9 L (20.0-27.5) mmol/L Anion Gap 21.10 H (10.00-18.00) mmol/L BUN 117.0 H* (9.0-27.0) mg/dL Creatinine 7.2 H* (0.6-1.5) mg/dL Est GFR (CKD-EPI)AfAm 8.1 L (60.0-200.0) Est GFR (CKD-EPI)NonAf 7.0 L (60.0-200.0) Glucose 135 H (70-110) mg/dL Calcium 8.5 L (8.7-10.3) mg/dL Procalcitonin 0.82 H (0.02-0.09) ng/mL Microbiology - Last 24 Hours (Table) 08/25/21 22:20 Blood Culture - Preliminary Blood No Growth after 24 hours 08/25/21 22:07 Blood Culture - Preliminary Blood No Growth after 24 hours Assessment and Plan Plan: Assessment: 1. Acute kidney injury secondary to ATN secondary to hypotension. Baseline creatinine near 1 from June 2021. Creatinine near 7 this admission. Nonoliguric. No hydronephrosis noted on kidney ultrasound. 2. Hyperkalemia secondary to acute kidney injury. Improved with medical management. 3. Hypervolemic hyponatremia. 4. Metabolic acidosis secondary to acute kidney injury. 5. Cholangiocarcinoma the biliary duct. Recent intervention done at [facility] in June 2021. Oncology following. Plan: Maintain bicarb drip. Repeat IV Lasix 80 mg once today. Follow-up morning labs. Continue to assess daily for need for renal replacement therapy. Strict is and os. Pinto catheter removed yesterday. Patient is refusing straight catheterizations or reinsertion of Pinto catheter. Check urinalysis
[2021-08-27 09:56] LABS: HCT 35.6 % (39.6-50.0); HGB 12.1 g/dL (13.0-17.0); MCH 32.6 pg (27.0-32.0); Mean Platelet Volume 8.9 fL (9.5-12.2); NRBC Per 100 WBC 0 /100 WBCS (0.0-0.0); Platelet Count 234 X 10*3/uL (140-440); RBC 3.71 X 10*6/uL (4.40-5.60); RDW 16.7 % (11.5-14.5); WBC 36.74 X 10*3/uL (4.50-10.00)
[2021-08-27 10:37] LABS: Basophils # (A) 0.12 X 10*3/uL (0.00-0.10); Basophils % (A) 0.3 %; Eosinophils # (A) 0 X 10*3/uL (0.04-0.35); Eosinophils % (A) 0 %; Immature Grans, Automated 3.1 %; Lymphocytes % (A) 1.4 %; Monocytes # (A) 1.27 X 10*3/uL (0.20-1.00); Monocytes % (A) 3.5 %; Neutrophils % (A) 91.7 %
[2021-08-27 10:39] LABS: Acanthocytes 2+; Microcytosis (M) 2+
[2021-08-27 10:40] LABS: African American GFR (CKD) 7.2 (60.0-200.0); Anion Gap 24.4 mmol/L (10.00-18.00); BUN/Creat Ratio 16.33 Ratio (12.00-20.00); Calcium 8.4 mg/dL (8.7-10.3); Carbon Dioxide 16.6 mmol/L (20.0-27.5); Non-African American GFR(CKD) 6.2 (60.0-200.0); Phosphorus 11.4 mg/dL (2.4-5.1); Potassium 5.9 mmol/L (3.5-5.5)
--- NOTE | 2021-08-27 12:12 | P.PN ---
Subjective Progress Note Date: 08/27/21 Principal diagnosis: COPD exacerbation, ARF, liver failure In f/u pt has brother and son at bedside. Pt states his perirectal area is sore from diarrhea and tail bone is sore from sitting. Pt is not able to ambulate or stand for very long period of time. He is not having nausea. Has no appetite, very thirsty. He had delcid removed, pending if he can urinate. Objective - Vital Signs Vital signs: Vital Signs Temp 97.7 F 08/27/21 08:00 Pulse 90 08/27/21 08:48 Resp 16 08/27/21 08:00 BP 109/62 08/27/21 08:00 Pulse Ox 99 08/27/21 02:00 Intake & Output 08/26/21 08/27/21 08/27/21 18:59 06:59 18:59 Intake Total 450 480 Output Total 151 1302 Balance 299 -822 Intake: IV 450 Sodium Chloride 0.9% 1, 450 000 ml @ 75 mls/hr IV . [id number] [facility] Rx#:[id number] Oral 480 Output: Urine 150 1300 Uretheral (Delcid) 250 Stool 1 2 Other: Voiding Method Indwelling Catheter Indwelling Catheter # Bowel Movements 1 - Constitutional Constitutional Comment(s): frail, muscle wasting, mild irritability/unable to sit still General appearance: Present: cooperative, no acute distress - EENT Eyes: Present: EOMI, scleral icterus ENT: Present: hearing grossly normal - Respiratory Details: resp mildly labored at rest Respiratory: bilateral: diminished - Cardiovascular Heart sounds: normal: S1, S2 - Gastrointestinal General gastrointestinal: Present: distended, soft - Integumentary Integumentary Comment(s): thin skin on arms, bruising Integumentary: Present: jaundiced - Neurologic Neurologic: Present: CNII-XII intact (grossly) - Musculoskeletal Musculoskeletal: Present: generalized weakness - Psychiatric Psychiatric Comment(s): family notes hallucinations, pt acting out tasks Psychiatric: Present: appropriate affect - Labs CBC & Chem 7: 08/27/21 05:19 08/27/21 05:19 Labs: Abnormal Lab Results - Last 24 Hours (Table) 08/26/21 08/26/21 08/26/21 Range/Units 12:11 12:11 16:05 WBC (4.50-10.00) X 10*3/uL RBC (4.40-5.60) X 10*6/uL Hgb (13.0-17.0) g/dL Hct (39.6-50.0) % MCH (27.0-32.0) pg RDW (11.5-14.5) % MPV (9.5-12.2) fL Immature Gran # (0.00-0.04) X 10*3/uL Neutrophils # (1.80-7.70) X 10*3/uL Lymphocytes # (0.90-5.00) X 10*3/uL Monocytes # (0.20-1.00) X 10*3/uL Eosinophils # (0.04-0.35) X 10*3/uL Basophils # (0.00-0.10) X 10*3/uL Sodium 129 L (135-145) mmol/L Potassium 5.6 H 5.7 H (3.5-5.1) mmol/L Chloride 94 L (96-109) mmol/L Carbon Dioxide 13.9 L (20.0-27.5) mmol/L Anion Gap 21.10 H (10.00-18.00) mmol/L BUN 117.0 H* (9.0-27.0) mg/dL Creatinine 7.2 H* (0.6-1.5) mg/dL Est GFR (CKD-EPI)AfAm 8.1 L (60.0-200.0) Est GFR (CKD-EPI)NonAf 7.0 L (60.0-200.0) Glucose 135 H (70-110) mg/dL Calcium 8.5 L (8.7-10.3) mg/dL Phosphorus (2.4-5.1) mg/dL Procalcitonin 0.82 H (0.02-0.09) ng/mL 08/27/21 08/27/21 Range/Units 05:19 05:19 WBC 36.74 H (4.50-10.00) X 10*3/uL RBC 3.71 L (4.40-5.60) X 10*6/uL Hgb 12.1 L (13.0-17.0) g/dL Hct 35.6 L (39.6-50.0) % MCH 32.6 H (27.0-32.0) pg RDW 16.7 H (11.5-14.5) % MPV 8.9 L (9.5-12.2) fL Immature Gran # 1.15 H (0.00-0.04) X 10*3/uL Neutrophils # 33.70 H (1.80-7.70) X 10*3/uL Lymphocytes # 0.50 L (0.90-5.00) X 10*3/uL Monocytes # 1.27 H (0.20-1.00) X 10*3/uL Eosinophils # 0 L (0.04-0.35) X 10*3/uL Basophils # 0.12 H (0.00-0.10) X 10*3/uL Sodium 130 L (135-145) mmol/L Potassium 5.9 H (3.5-5.1) mmol/L Chloride 89 L (96-109) mmol/L Carbon Dioxide 16.6 L (20.0-27.5) mmol/L Anion Gap 24.40 H (10.00-18.00) mmol/L BUN 129.0 H* (9.0-27.0) mg/dL Creatinine 7.9 H* (0.6-1.5) mg/dL Est GFR (CKD-EPI)AfAm 7.2 L (60.0-200.0) Est GFR (CKD-EPI)NonAf 6.2 L (60.0-200.0) Glucose 152 H (70-110) mg/dL Calcium 8.4 L (8.7-10.3) mg/dL Phosphorus 11.4 H* (2.4-5.1) mg/dL Procalcitonin (0.02-0.09) ng/mL Microbiology - Last 24 Hours (Table) 08/25/21 22:20 Blood Culture - Preliminary Blood No Growth after 24 hours 08/25/21 22:07 Blood Culture - Preliminary Blood No Growth after 24 hours - Imaging and Cardiology abd bladder US report reviewed Assessment and Plan (1) Cholangiocarcinoma Current Visit: Yes Status: Acute Priority: High Code(s): C22.1 - INTRAHEPATIC BILE DUCT CARCINOMA SNOMED Code(s): 101992076 (2) Renal failure Current Visit: Yes Status: Acute Priority: High Code(s): N19 - UNSPECIFIED KIDNEY FAILURE SNOMED Code(s): 81387236 (3) Acute exacerbation of chronic obstructive pulmonary disease Current Visit: Yes Status: Acute Priority: High Code(s): J44.1 - CHRONIC OBSTRUCTIVE PULMONARY DISEASE W (ACUTE) EXACERBATION SNOMED Code(s): 285391725 (4) Acute renal failure Current Visit: Yes Status: Acute Priority: High Code(s): N17.9 - ACUTE KIDNEY FAILURE, UNSPECIFIED SNOMED Code(s): 12582111 (5) Acute respiratory failure with hypoxia Current Visit: Yes Status: Acute Priority: High Code(s): J96.01 - ACUTE RESPIRATORY FAILURE WITH HYPOXIA SNOMED Code(s): 65326774 Plan: Pt has not yet started treatment for cholangiocarcinoma. I do not think he has stage IV malignancy-I will get stage documented. It is documented that pt is not a surgical candidate and he has poor performance status at baseline. Intent of treatment is documented as palliative. Treatment was not going to be 1st line doublet therapy. Palliative care was discussed. Family seems to understand how sick pt is and how this affects the treatments that can be offered. All questions answered to the best of my ability. US abd to see if there is enough fluid to remove-family is concerned for comfort. Unknown cause for ARF. Nephrology following and treating. Pt was hypoxic on admit, Pulm following and treating.
--- NOTE | 2021-08-27 13:12 | US ---
EXAMINATION TYPE: US abdomen limited DATE OF EXAM: 08/27/2021 COMPARISON: NONE CLINICAL HISTORY: evaluate for ascites, possible paracentesis. Abdominal distention All four quadrants scanned, no fluid seen. No fluid seen at this time. IMPRESSION: 1. No significant free fluid identified within the 4 quadrants abdomen study.
--- NOTE | 2021-08-27 13:45 | P.PN ---
Subjective Progress Note Date: 08/27/21 70-year-old male patient with advanced COPD with an FEV1 of 32% of predicted, maintained on accommodation Symbicort Spiriva and prednisone at 5 mg daily basis for COPD, comes in to the bathroom because of worsening shortness of breath. Patient was in the hospital back in March 2020 and May 2021 for COPD exacerbation. The patient is coming in for essentially the same. He was seen yesterday in the emergency department complaining of worsening shortness of breath. Denied having any chest pain or pleurisy. He had increased cough and dyspnea. No altered mentation. No signs of any CO2 narcosis. Apparently was diagnosed also to have liver cancer and he demonstrated some signs of peripheral edema, increased lower extremity swelling, increased abdominal swelling and he developed also increased jaundiced. He was recently seen at [facility] for insertion of a biliary/pancreatic stent and a stent was placed to relieve his obstructive jaundice. His bilirubin was as high as 36. He has been followed up with oncology also. The patient's LFTs have been quite elevated and they have improved after the insertion of a biliary stent. Most recent bilirubin is down to 3.7. His AST is down to 43 and ALT is down to 34. His alkaline phosphatase is down to 201. His code 19 testing was negative. Nevertheless, the patient developed an acute kidney injury, creatinine was up to 4.7.2 and his sodium was down to 125 with a potassium level of 6.0 and a serum bicarb of 14 with an anion gap of 16. White cell count was 21 with a hemoglobin of 12.3 and platelets of 244. Chest x-ray was consistent with hyperinflation and COPD without any acute cardio pulmonary process. In terms of his hyperkalemia, the patient did not show any acute EKG changes. His EKG showed some nonspecific ST segment abnormalities and there was a lot of motion artifact. No hyperacute T waves. The patient was given calcium gluconate, D50 insulin, and bicarb a total of 100 mEq and the patient was given 2 L of normal saline bolus and another 500 mL of normal saline bolus and currently the patient on normal saline at the rate of 75 mL an hour. He was also given Kayexalate 15 g 1. He has not been seen by nephrology at. I came to find out that the patient has seen Dr. Sandra from oncology. Note that his renal function back in June 2021 was within normal limits and this is obvious an acute kidney injury. 08/27/2021, the patient is still doing same as yesterday. More information is available regarding the patient's malignancy. The patient to the patient had an obstructive jaundice and he had an evaluation for a CAT scan of the chest abdomen and pelvis that showed antral and extra biliary duct and hepatic duct dilatation. Furthermore, the patient underwent MR I and MRCP which showed the same. The patient had bili duct dilatation which extended to the level of the proper hepatic duct and there wasn't abnormal stricture at that level. At that point, the patient was transferred to [facility] and the patient underwent a ERCP and a stent was placed in the biliary duct with good response. Biopsies were consistent with adenocarcinoma and the overall diagnosis seems to be more consistent with colon carcinoma. At this point in time, the patient has not received any treatment. There are some plans to start the patient a combination of chemo using cisplatin and Gemzar or carboplatin and Gemzar or gemzar/oxaliplatin and this has not been initiated yet. Liquid biopsy was also sent regarding EGFR and other mutations. Note that she is developing acute kidney injury. Possibility of hepatorenal syndrome is being entertained. Hypotension/ATN is another possibility. The patient on producing much of urine. He pulled out his Pinto catheter. He refused a Pinto catheter. The Pinto is on the case. The plan is to proceed with hemodialysis. On today's evaluation was 13 6.7 with a hemoglobin 4.1 and a platelet count of 234. And same time, the patient has obvious of the medicine electrodes with a sodium level of 1:30, potassium level of 5.9, BUN is 129 with a creatinine of 7.9. The patient has a phosphorus of 11.4 with a calcium of 8.4. Pro-calcitonin level is at 0.82. Ultrasound the kidneys showed no evidence of any hydronephrosis and there was cholelithiasis. Ultrasound abdomen showed no evidence of any significant ascites in all 4 quadrants. Meanwhile, the patient remains on IV Rocephin as an empiric antibiotic coverage. The patient is on a bicarb infusion. The blood cultures are negative thus far. Objective - Vital Signs Vital signs: Vital Signs Temp 97.7 F 08/27/21 08:00 Pulse 84 08/27/21 12:04 Resp 16 08/27/21 08:00 BP 109/62 08/27/21 08:00 Pulse Ox 99 08/27/21 02:00 Intake & Output 08/26/21 08/27/21 08/27/21 18:59 06:59 18:59 Intake Total 450 480 Output Total 151 1302 Balance 299 -822 Intake: IV 450 Sodium Chloride 0.9% 1, 450 000 ml @ 75 mls/hr IV . [id number] [facility] Rx#:[id number] Oral 480 Output: Urine 150 1300 Uretheral (Pinto) 250 Stool 1 2 Other: Voiding Method Indwelling Catheter Indwelling Catheter # Bowel Movements 1 - Labs CBC & Chem 7: 08/27/21 05:19 08/27/21 05:19 Labs: Abnormal Lab Results - Last 24 Hours (Table) 08/26/21 08/26/21 08/27/21 Range/Units 12:11 16:05 05:19 WBC 36.74 H (4.50-10.00) X 10*3/uL RBC 3.71 L (4.40-5.60) X 10*6/uL Hgb 12.1 L (13.0-17.0) g/dL Hct 35.6 L (39.6-50.0) % MCH 32.6 H (27.0-32.0) pg RDW 16.7 H (11.5-14.5) % MPV 8.9 L (9.5-12.2) fL Immature Gran # 1.15 H (0.00-0.04) X 10*3/uL Neutrophils # 33.70 H (1.80-7.70) X 10*3/uL Lymphocytes # 0.50 L (0.90-5.00) X 10*3/uL Monocytes # 1.27 H (0.20-1.00) X 10*3/uL Eosinophils # 0 L (0.04-0.35) X 10*3/uL Basophils # 0.12 H (0.00-0.10) X 10*3/uL Sodium 129 L (135-145) mmol/L Potassium 5.7 H (3.5-5.5) mmol/L Chloride 94 L (96-109) mmol/L Carbon Dioxide 13.9 L (20.0-27.5) mmol/L Anion Gap 21.10 H (10.00-18.00) mmol/L BUN 117.0 H* (9.0-27.0) mg/dL Creatinine 7.2 H* (0.6-1.5) mg/dL Est GFR (CKD-EPI)AfAm 8.1 L (60.0-200.0) Est GFR (CKD-EPI)NonAf 7.0 L (60.0-200.0) Glucose 135 H (70-110) mg/dL Calcium 8.5 L (8.7-10.3) mg/dL Phosphorus (2.4-5.1) mg/dL Procalcitonin 0.82 H (0.02-0.09) ng/mL 08/27/21 Range/Units 05:19 WBC (4.50-10.00) X 10*3/uL RBC (4.40-5.60) X 10*6/uL Hgb (13.0-17.0) g/dL Hct (39.6-50.0) % MCH (27.0-32.0) pg RDW (11.5-14.5) % MPV (9.5-12.2) fL Immature Gran # (0.00-0.04) X 10*3/uL Neutrophils # (1.80-7.70) X 10*3/uL Lymphocytes # (0.90-5.00) X 10*3/uL Monocytes # (0.20-1.00) X 10*3/uL Eosinophils # (0.04-0.35) X 10*3/uL Basophils # (0.00-0.10) X 10*3/uL Sodium 130 L (135-145) mmol/L Potassium 5.9 H (3.5-5.5) mmol/L Chloride 89 L (96-109) mmol/L Carbon Dioxide 16.6 L (20.0-27.5) mmol/L Anion Gap 24.40 H (10.00-18.00) mmol/L BUN 129.0 H* (9.0-27.0) mg/dL Creatinine 7.9 H* (0.6-1.5) mg/dL Est GFR (CKD-EPI)AfAm 7.2 L (60.0-200.0) Est GFR (CKD-EPI)NonAf 6.2 L (60.0-200.0) Glucose 152 H (70-110) mg/dL Calcium 8.4 L (8.7-10.3) mg/dL Phosphorus 11.4 H* (2.4-5.1) mg/dL Procalcitonin (0.02-0.09) ng/mL Microbiology - Last 24 Hours (Table) 08/25/21 22:20 Blood Culture - Preliminary Blood No Growth after 24 hours 08/25/21 22:07 Blood Culture - Preliminary Blood No Growth after 24 hours Assessment and Plan Plan: 1 COPD, advanced, severe. Stable with a baseline FEV1 of 32% of predicted and the patient is maintained on a combination of Symbicort Spiriva and prednisone on outpatient basis. 2 cholangiocarcinoma with secondary obstructive jaundice post insertion of a biliary stent and the patient has not received any treatment yet. 3 acute kidney injury, currently has a Pinto catheter in place. The patient remains oliguric. Urine output is limited at this point in time. The patient's creatinine is on the rise. The patient has elevated phosphorus level, potassium level with significant electrode disturbance a massive fluid overload. The patient is in need for hemodialysis. Nephrology on the case and consider underlying hepatorenal syndrome. 4 hypertension 5 mild CAD with mild pulmonary hypertension based on echocardiogram that was done on 12/29/2013 6 mild lactic acidosis, secondary to above 7 acute hyperkalemia 8 acute leukocytosis 9 acute hyponatremia , slightly improved compared to yesterday Plan Consult nephrology [facility] hematology oncology Vascular surgery consultation for dialysis access and initiation of hemodialysis Unable to keep the Pinto catheter in place Continue bicarb infusion Monitor electrolytes Ultrasound the abdomen shows no ascites Ultrasound the kidneys shows no evidence of hydronephrosis Nephrology and oncology consultations been appreciated Continue IV Rocephin Cultures are negative We'll continue to follow Prognosis poor baseline above-mentioned comorbidities.
--- NOTE | 2021-08-27 14:22 | P.GSCN ---
<Debi Rodriguez - Last Filed: 08/27/21 14:11> History of Present Illness Consult date: 08/27/21 Reason for Consult: Temporary hemodialysis catheter placement Requesting physician: Dhruv Sanchez History of present illness: This is a 71-year-old male who presented to the emergency department 2 days ago for increased cough and shortness of breath. Patient was found to be in acute renal failure with hyperkalemia. He is being followed by nephrology who requested consultation by vascular surgery for temporary dialysis catheter placement. He still has some mild shortness of breath. No chest pain. He's been afebrile. Review of Systems A 14 point review systems was completed all pertinent positives and negatives as stated in the HPI Past Medical History Past Medical History: COPD, Hypertension, Respiratory Disorder Additional Past Medical History / Comment(s): HX RHEUMATIC FEVER AGE 8-NO PROBLEMS. obstructive jaundice History of Any Multi-Drug Resistant Organisms: None Reported Past Surgical History: Heart Catheterization Additional Past Surgical History / Comment(s): Bilat cataracts, stents in pancreas. Past Anesthesia/Blood Transfusion Reactions: No Reported Reaction Past Psychological History: No Psychological Hx Reported Additional Psychological History / Comment(s): Pt has his brother living with him. Pt is independent. He has a nebulizer. Smoking Status: Former smoker Past Alcohol Use History: None Reported Additional Past Alcohol Use History / Comment(s): Pt started smoking in 1963 and quit in 2011. He states he used to drink few beers/ day but has not had one in 4 months Past Drug Use History: None Reported - Past Family History Father Family Medical History: Cancer Additional Family Medical History / Comment(s): liver cancer-pt did not speak to father much. Mother Family Medical History: Cancer Additional Family Medical History / Comment(s): Lung cancer Medications and Allergies Home Medications Medication Instructions Recorded Confirmed Type Tiotropium 18 Mcg/Puff [Spiriva] 1 cap INHALATION RT-DAILY 11/28/13 08/25/21 History Budesonide-Formot 160-4.5 Mcg 2 puff INHALATION RT-BID 12/29/13 08/25/21 History [Symbicort 160-4.5 Mcg Inhaler] Furosemide [Lasix] 20 mg PO DAILY 08/25/21 08/25/21 History Levofloxacin [Levaquin] 500 mg PO DAILY 08/25/21 08/25/21 History Allergies Allergy/AdvReac Type Severity Reaction Status Date / Time No Known Allergies Allergy Verified 08/25/21 21:07 Surgical - Exam Vital Signs Temp Pulse Resp BP Pulse Ox 98 F 134 H 22 99/70 96 08/25/21 19:39 08/25/21 19:39 08/25/21 19:39 08/25/21 19:39 08/25/21 19:39 General appearance: The patient is alert, oriented, appears in no acute distress. HET: Head is normocephalic and atraumatic. Pupils are equal and reactive. Neck: Supple without lymphadenopathy. Trachea midline. No audible carotid bruit. Heart: S1 S2. Regular rate and rhythm. Lungs: Clear to auscultation bilaterally. Abdomen: Soft, nontender, nondistended. Extremities: Normal skin color and turgor. Bilateral lower extremity edema. Neurological: No focal deficits. Alert and oriented 3. Results - Labs 08/27/21 05:19 08/27/21 05:19 Abnormal Lab Results - Last 24 Hours (Table) 08/26/21 08/26/21 08/27/21 Range/Units 12:11 16:05 05:19 WBC 36.74 H (4.50-10.00) X 10*3/uL RBC 3.71 L (4.40-5.60) X 10*6/uL Hgb 12.1 L (13.0-17.0) g/dL Hct 35.6 L (39.6-50.0) % MCH 32.6 H (27.0-32.0) pg RDW 16.7 H (11.5-14.5) % MPV 8.9 L (9.5-12.2) fL Immature Gran # 1.15 H (0.00-0.04) X 10*3/uL Neutrophils # 33.70 H (1.80-7.70) X 10*3/uL Lymphocytes # 0.50 L (0.90-5.00) X 10*3/uL Monocytes # 1.27 H (0.20-1.00) X 10*3/uL Eosinophils # 0 L (0.04-0.35) X 10*3/uL Basophils # 0.12 H (0.00-0.10) X 10*3/uL Sodium 129 L (135-145) mmol/L Potassium 5.7 H (3.5-5.5) mmol/L Chloride 94 L (96-109) mmol/L Carbon Dioxide 13.9 L (20.0-27.5) mmol/L Anion Gap 21.10 H (10.00-18.00) mmol/L BUN 117.0 H* (9.0-27.0) mg/dL Creatinine 7.2 H* (0.6-1.5) mg/dL Est GFR (CKD-EPI)AfAm 8.1 L (60.0-200.0) Est GFR (CKD-EPI)NonAf 7.0 L (60.0-200.0) Glucose 135 H (70-110) mg/dL Calcium 8.5 L (8.7-10.3) mg/dL Phosphorus (2.4-5.1) mg/dL Procalcitonin 0.82 H (0.02-0.09) ng/mL 08/27/21 Range/Units 05:19 WBC (4.50-10.00) X 10*3/uL RBC (4.40-5.60) X 10*6/uL Hgb (13.0-17.0) g/dL Hct (39.6-50.0) % MCH (27.0-32.0) pg RDW (11.5-14.5) % MPV (9.5-12.2) fL Immature Gran # (0.00-0.04) X 10*3/uL Neutrophils # (1.80-7.70) X 10*3/uL Lymphocytes # (0.90-5.00) X 10*3/uL Monocytes # (0.20-1.00) X 10*3/uL Eosinophils # (0.04-0.35) X 10*3/uL Basophils # (0.00-0.10) X 10*3/uL Sodium 130 L (135-145) mmol/L Potassium 5.9 H (3.5-5.5) mmol/L Chloride 89 L (96-109) mmol/L Carbon Dioxide 16.6 L (20.0-27.5) mmol/L Anion Gap 24.40 H (10.00-18.00) mmol/L BUN 129.0 H* (9.0-27.0) mg/dL Creatinine 7.9 H* (0.6-1.5) mg/dL Est GFR (CKD-EPI)AfAm 7.2 L (60.0-200.0) Est GFR (CKD-EPI)NonAf 6.2 L (60.0-200.0) Glucose 152 H (70-110) mg/dL Calcium 8.4 L (8.7-10.3) mg/dL Phosphorus 11.4 H* (2.4-5.1) mg/dL Procalcitonin (0.02-0.09) ng/mL Microbiology - Last 24 Hours (Table) 08/25/21 22:20 Blood Culture - Preliminary Blood No Growth after 24 hours 08/25/21 22:07 Blood Culture - Preliminary Blood No Growth after 24 hours Diabetes panel 08/26/21 08/27/21 Range/Units 16:05 05:19 Sodium 129 L 130 L (135-145) mmol/L Potassium 5.7 H 5.9 H (3.5-5.5) mmol/L Chloride 94 L 89 L (96-109) mmol/L Carbon Dioxide 13.9 L 16.6 L (20.0-27.5) mmol/L BUN 117.0 H* 129.0 H* (9.0-27.0) mg/dL Creatinine 7.2 H* 7.9 H* (0.6-1.5) mg/dL Glucose 135 H 152 H (70-110) mg/dL Calcium 8.5 L 8.4 L (8.7-10.3) mg/dL Calcium panel 08/26/21 08/27/21 Range/Units 16:05 05:19 Calcium 8.5 L 8.4 L (8.7-10.3) mg/dL Phosphorus 11.4 H* (2.4-5.1) mg/dL Pituitary panel 08/26/21 08/27/21 Range/Units 16:05 05:19 Sodium 129 L 130 L (135-145) mmol/L Potassium 5.7 H 5.9 H (3.5-5.5) mmol/L Chloride 94 L 89 L (96-109) mmol/L Carbon Dioxide 13.9 L 16.6 L (20.0-27.5) mmol/L BUN 117.0 H* 129.0 H* (9.0-27.0) mg/dL Creatinine 7.2 H* 7.9 H* (0.6-1.5) mg/dL Glucose 135 H 152 H (70-110) mg/dL Calcium 8.5 L 8.4 L (8.7-10.3) mg/dL Adrenal panel 08/26/21 08/27/21 Range/Units 16:05 05:19 Sodium 129 L 130 L (135-145) mmol/L Potassium 5.7 H 5.9 H (3.5-5.5) mmol/L Chloride 94 L 89 L (96-109) mmol/L Carbon Dioxide 13.9 L 16.6 L (20.0-27.5) mmol/L BUN 117.0 H* 129.0 H* (9.0-27.0) mg/dL Creatinine 7.2 H* 7.9 H* (0.6-1.5) mg/dL Glucose 135 H 152 H (70-110) mg/dL Calcium 8.5 L 8.4 L (8.7-10.3) mg/dL Assessment and Plan Assessment: 1. Acute kidney injury requiring hemodialysis 2. Hyperkalemia secondary to acute kidney injury 3. Cholangiocarcinoma 4. History of COPD oxygen dependent Plan: 1. We'll plan on bedside hemodialysis catheter placement 2. Hemodialysis per recommendations from nephrology Thank you for this consultation and allowing us take part and plan of care of your patient during his hospital stay. The impression and plan of care has been dictated as directed. Dr. Green I performed a history and examination of this patient, discussed the same with the dictator. I agree with the dictator's note ,documented as a scribe. Any additional findings or plans will be noted. <Uday Green - Last Filed: 08/27/21 16:08> Surgical - Exam Osteopathic Statement: *. No significant issues noted on an osteopathic structural exam other than those noted in the History and Physical/Consult. Vital Signs Temp Pulse Resp BP Pulse Ox 98 F 134 H 22 99/70 96 08/25/21 19:39 08/25/21 19:39 08/25/21 19:39 08/25/21 19:39 08/25/21 19:39 Results - Labs 08/27/21 05:19 08/27/21 05:19 Abnormal Lab Results - Last 24 Hours (Table) 08/26/21 08/26/21 08/27/21 Range/Units 12:11 16:05 05:19 WBC 36.74 H (4.50-10.00) X 10*3/uL RBC 3.71 L (4.40-5.60) X 10*6/uL Hgb 12.1 L (13.0-17.0) g/dL Hct 35.6 L (39.6-50.0) % MCH 32.6 H (27.0-32.0) pg RDW 16.7 H (11.5-14.5) % MPV 8.9 L (9.5-12.2) fL Immature Gran # 1.15 H (0.00-0.04) X 10*3/uL Neutrophils # 33.70 H (1.80-7.70) X 10*3/uL Lymphocytes # 0.50 L (0.90-5.00) X 10*3/uL Monocytes # 1.27 H (0.20-1.00) X 10*3/uL Eosinophils # 0 L (0.04-0.35) X 10*3/uL Basophils # 0.12 H (0.00-0.10) X 10*3/uL Sodium 129 L (135-145) mmol/L Potassium 5.7 H (3.5-5.5) mmol/L Chloride 94 L (96-109) mmol/L Carbon Dioxide 13.9 L (20.0-27.5) mmol/L Anion Gap 21.10 H (10.00-18.00) mmol/L BUN 117.0 H* (9.0-27.0) mg/dL Creatinine 7.2 H* (0.6-1.5) mg/dL Est GFR (CKD-EPI)AfAm 8.1 L (60.0-200.0) Est GFR (CKD-EPI)NonAf 7.0 L (60.0-200.0) Glucose 135 H (70-110) mg/dL Calcium 8.5 L (8.7-10.3) mg/dL Phosphorus (2.4-5.1) mg/dL Procalcitonin 0.82 H (0.02-0.09) ng/mL 08/27/21 Range/Units 05:19 WBC (4.50-10.00) X 10*3/uL RBC (4.40-5.60) X 10*6/uL Hgb (13.0-17.0) g/dL Hct (39.6-50.0) % MCH (27.0-32.0) pg RDW (11.5-14.5) % MPV (9.5-12.2) fL Immature Gran # (0.00-0.04) X 10*3/uL Neutrophils # (1.80-7.70) X 10*3/uL Lymphocytes # (0.90-5.00) X 10*3/uL Monocytes # (0.20-1.00) X 10*3/uL Eosinophils # (0.04-0.35) X 10*3/uL Basophils # (0.00-0.10) X 10*3/uL Sodium 130 L (135-145) mmol/L Potassium 5.9 H (3.5-5.5) mmol/L Chloride 89 L (96-109) mmol/L Carbon Dioxide 16.6 L (20.0-27.5) mmol/L Anion Gap 24.40 H (10.00-18.00) mmol/L BUN 129.0 H* (9.0-27.0) mg/dL Creatinine 7.9 H* (0.6-1.5) mg/dL Est GFR (CKD-EPI)AfAm 7.2 L (60.0-200.0) Est GFR (CKD-EPI)NonAf 6.2 L (60.0-200.0) Glucose 152 H (70-110) mg/dL Calcium 8.4 L (8.7-10.3) mg/dL Phosphorus 11.4 H* (2.4-5.1) mg/dL Procalcitonin (0.02-0.09) ng/mL Microbiology - Last 24 Hours (Table) 08/25/21 22:20 Blood Culture - Preliminary Blood No Growth after 24 hours 08/25/21 22:07 Blood Culture - Preliminary Blood No Growth after 24 hours Diabetes panel 08/26/21 08/27/21 Range/Units 16:05 05:19 Sodium 129 L 130 L (135-145) mmol/L Potassium 5.7 H 5.9 H (3.5-5.5) mmol/L Chloride 94 L 89 L (96-109) mmol/L Carbon Dioxide 13.9 L 16.6 L (20.0-27.5) mmol/L BUN 117.0 H* 129.0 H* (9.0-27.0) mg/dL Creatinine 7.2 H* 7.9 H* (0.6-1.5) mg/dL Glucose 135 H 152 H (70-110) mg/dL Calcium 8.5 L 8.4 L (8.7-10.3) mg/dL Calcium panel 08/26/21 08/27/21 Range/Units 16:05 05:19 Calcium 8.5 L 8.4 L (8.7-10.3) mg/dL Phosphorus 11.4 H* (2.4-5.1) mg/dL Pituitary panel 08/26/21 08/27/21 Range/Units 16:05 05:19 Sodium 129 L 130 L (135-145) mmol/L Potassium 5.7 H 5.9 H (3.5-5.5) mmol/L Chloride 94 L 89 L (96-109) mmol/L Carbon Dioxide 13.9 L 16.6 L (20.0-27.5) mmol/L BUN 117.0 H* 129.0 H* (9.0-27.0) mg/dL Creatinine 7.2 H* 7.9 H* (0.6-1.5) mg/dL Glucose 135 H 152 H (70-110) mg/dL Calcium 8.5 L 8.4 L (8.7-10.3) mg/dL Adrenal panel 08/26/21 08/27/21 Range/Units 16:05 05:19 Sodium 129 L 130 L (135-145) mmol/L Potassium 5.7 H 5.9 H (3.5-5.5) mmol/L Chloride 94 L 89 L (96-109) mmol/L Carbon Dioxide 13.9 L 16.6 L (20.0-27.5) mmol/L BUN 117.0 H* 129.0 H* (9.0-27.0) mg/dL Creatinine 7.2 H* 7.9 H* (0.6-1.5) mg/dL Glucose 135 H 152 H (70-110) mg/dL Calcium 8.5 L 8.4 L (8.7-10.3) mg/dL Assessment and Plan Assessment: Patient was evaluated. Son was at bedside. I discussed with the patient and his son the procedure of placement of temporary hemodialysis catheter. All questions were answered to family and patient's satisfaction. Consent form was signed.
[2021-08-27 15:11] VITALS: BMI 29.9
--- NOTE | 2021-08-27 16:04 | P.OP ---
Date of Procedure: 08/27/21 Preoperative Diagnosis: Acute renal failure requiring hemodialysis. Postoperative Diagnosis: Same. Procedure(s) Performed: Insertion of a non-tunneled hemodialysis catheter via the left common femoral vein approach. Anesthesia: local (1% Xylocaine) Surgeon: Uday Green Estimated Blood Loss (ml): 5 IV fluids (ml): 0 Urine output (ml): 0 Pathology: none sent Condition: stable Disposition: no change Indications for Procedure: Patient is a 71-year-old male who is extrinsic to renal failure requiring hemodialysis. Procedure dialysis catheter insertion, as well as risk and benefits were discussed with patient and his son who is at bedside. Both the patient and the son wish to proceed. Consent form was signed by the patient's son. Description of Procedure: Patient was placed supine in his bed. The left groin was sterilely prepped and draped in usual manner. 1% Xylocaine was utilized for local anesthesia tissues overlying the left femoral vein. Through this anesthetized area a multipurpose needle was utilized to cannulate the vein. Once cannulated Softip guidewire is advanced into the vein. The needle was withdrawn. Progressively enlarging vascular dilators were advanced and then withdrawn from over the guidewire. Once this was achieved the dialysis catheter was advanced over the guidewire. Guidewire was withdrawn. Through both ports blood was easily aspirated both ports were then flushed with saline solution. The catheter was secured to the skin with nylon suture. Proper dressings were applied. Patient tolerated the procedure well. Dialysis nurse was at bedside and immediately was attaching the catheter to dialysis machine for urgent dialysis.
--- NOTE | 2021-08-27 22:04 | P.CONS ---
History of Present Illness - Reason for Consult Consult date: 08/27/21 Leukocytosis Requesting physician: Ho Saini - Chief Complaint Increasing shortness of breath x few days - History of Present Illness Patient is 71-year-old male with a past medical history of recurrent COPD hypertension with a recent diagnosis of liver cancer presenting to the ER for evaluation of increasing shortness of breath and cough in this patient symptom has been going on for few days to week before presentation to the hospital patient also complaining of increasing abdominal distention increasing lower extremity swelling with some weeping edema patient also have recent history of biliary stent placement for obstructive jaundice at [facility], patient on presentation to the hospital was afebrile and no fever have been recorded subsequently patient did have white count of 21,000 which is up to 36.74 today with a left shift that has prompted this infectious disease consultation patient was noticed with acute renal failure with a BUN of 129 and a creatinine of 7.9 patient has got dialysis catheter placement and was started on dialysis today patient did have blood cultures done this admission which has been negative so far patient did have elevated bilirubin however liver enzymes are normal and procalcitonin 0.82, patient himself is not a very good historian so most information has been obtained from review the chart and talking to the nursing staff, patient did have a chest x-ray on this admission it was negative for acute cardiopulmonary disease and changes of COPD patient did have a ultrasound of the abdominal with no evidence of any hydronephrosis and evidence of cholelithiasis Review of Systems Positive points has been mentioned in HPI complete review could not be obtained because of his underlying mental status Past Medical History Past Medical History: COPD, Hypertension, Respiratory Disorder Additional Past Medical History / Comment(s): HX RHEUMATIC FEVER AGE 8-NO PROBLEMS. obstructive jaundice History of Any Multi-Drug Resistant Organisms: None Reported Past Surgical History: Heart Catheterization Additional Past Surgical History / Comment(s): Bilat cataracts, stents in pancreas. Past Anesthesia/Blood Transfusion Reactions: No Reported Reaction Past Psychological History: No Psychological Hx Reported Additional Psychological History / Comment(s): Pt has his brother living with him. Pt is independent. He has a nebulizer. Smoking Status: Former smoker Past Alcohol Use History: None Reported Additional Past Alcohol Use History / Comment(s): Pt started smoking in 1963 and quit in 2011. He states he used to drink few beers/ day but has not had one in 4 months Past Drug Use History: None Reported - Past Family History Father Family Medical History: Cancer Additional Family Medical History / Comment(s): liver cancer-pt did not speak to father much. Mother Family Medical History: Cancer Additional Family Medical History / Comment(s): Lung cancer Medications and Allergies Home Medications Medication Instructions Recorded Confirmed Type Tiotropium 18 Mcg/Puff [Spiriva] 1 cap INHALATION RT-DAILY 11/28/13 08/25/21 History Budesonide-Formot 160-4.5 Mcg 2 puff INHALATION RT-BID 12/29/13 08/25/21 History [Symbicort 160-4.5 Mcg Inhaler] Furosemide [Lasix] 20 mg PO DAILY 08/25/21 08/25/21 History Levofloxacin [Levaquin] 500 mg PO DAILY 08/25/21 08/25/21 History Allergies Allergy/AdvReac Type Severity Reaction Status Date / Time No Known Allergies Allergy Verified 08/25/21 21:07 Physical Exam Vitals: Vital Signs Temp Pulse Pulse Resp BP Pulse Ox 08/27/21 12:04 84 08/27/21 11:54 82 08/27/21 08:48 90 08/27/21 08:39 96 08/27/21 08:00 97.7 F 91 16 109/62 08/27/21 02:00 97.5 F L 71 18 100/61 99 08/26/21 20:54 96.2 F L 100 18 124/57 100 08/26/21 20:00 18 08/26/21 19:50 69 08/26/21 19:38 74 08/26/21 16:00 70 08/26/21 15:52 78 Intake and Output 08/27/21 08/27/21 08/27/21 06:59 14:59 22:59 Intake Total 480 Output Total 1150 Balance -670 Intake: Oral 480 Output: Urine 1150 Uretheral ([place]) 250 Other: # Bowel Movements 1 GENERAL DESCRIPTION: An elderly male lying in bed, no distress. No tachypnea or accessory muscle of respiration use. HEENT: Shows Pallor , no scleral icterus. Oral mucous membrane is dry. No pharyngeal erythema or thrush NECK: Trachea central, no thyromegaly. LUNGS: Unlabored breathing. Decreased breath sounds at the base HEART: S1, S2, regular rate and rhythm. No loud murmur ABDOMEN: Soft, no tenderness , guarding or rigidity, no organomegaly EXTREMITIES: Diffuse swelling of the lower extremity with some drainage SKIN: No rash, no masses palpable. NEUROLOGICAL: The patient is lethargic and orientation could not be determined Results CBC & Chem 7: 08/27/21 05:19 08/27/21 05:19 Labs: Abnormal Lab Results - Last 24 Hours (Table) 08/26/21 08/26/21 08/27/21 Range/Units 12:11 16:05 05:19 WBC 36.74 H (4.50-10.00) X 10*3/uL RBC 3.71 L (4.40-5.60) X 10*6/uL Hgb 12.1 L (13.0-17.0) g/dL Hct 35.6 L (39.6-50.0) % MCH 32.6 H (27.0-32.0) pg RDW 16.7 H (11.5-14.5) % MPV 8.9 L (9.5-12.2) fL Immature Gran # 1.15 H (0.00-0.04) X 10*3/uL Neutrophils # 33.70 H (1.80-7.70) X 10*3/uL Lymphocytes # 0.50 L (0.90-5.00) X 10*3/uL Monocytes # 1.27 H (0.20-1.00) X 10*3/uL Eosinophils # 0 L (0.04-0.35) X 10*3/uL Basophils # 0.12 H (0.00-0.10) X 10*3/uL Sodium 129 L (135-145) mmol/L Potassium 5.7 H (3.5-5.5) mmol/L Chloride 94 L (96-109) mmol/L Carbon Dioxide 13.9 L (20.0-27.5) mmol/L Anion Gap 21.10 H (10.00-18.00) mmol/L BUN 117.0 H* (9.0-27.0) mg/dL Creatinine 7.2 H* (0.6-1.5) mg/dL Est GFR (CKD-EPI)AfAm 8.1 L (60.0-200.0) Est GFR (CKD-EPI)NonAf 7.0 L (60.0-200.0) Glucose 135 H (70-110) mg/dL Calcium 8.5 L (8.7-10.3) mg/dL Phosphorus (2.4-5.1) mg/dL Procalcitonin 0.82 H (0.02-0.09) ng/mL 08/27/21 Range/Units 05:19 WBC (4.50-10.00) X 10*3/uL RBC (4.40-5.60) X 10*6/uL Hgb (13.0-17.0) g/dL Hct (39.6-50.0) % MCH (27.0-32.0) pg RDW (11.5-14.5) % MPV (9.5-12.2) fL Immature Gran # (0.00-0.04) X 10*3/uL Neutrophils # (1.80-7.70) X 10*3/uL Lymphocytes # (0.90-5.00) X 10*3/uL Monocytes # (0.20-1.00) X 10*3/uL Eosinophils # (0.04-0.35) X 10*3/uL Basophils # (0.00-0.10) X 10*3/uL Sodium 130 L (135-145) mmol/L Potassium 5.9 H (3.5-5.5) mmol/L Chloride 89 L (96-109) mmol/L Carbon Dioxide 16.6 L (20.0-27.5) mmol/L Anion Gap 24.40 H (10.00-18.00) mmol/L BUN 129.0 H* (9.0-27.0) mg/dL Creatinine 7.9 H* (0.6-1.5) mg/dL Est GFR (CKD-EPI)AfAm 7.2 L (60.0-200.0) Est GFR (CKD-EPI)NonAf 6.2 L (60.0-200.0) Glucose 152 H (70-110) mg/dL Calcium 8.4 L (8.7-10.3) mg/dL Phosphorus 11.4 H* (2.4-5.1) mg/dL Procalcitonin (0.02-0.09) ng/mL Microbiology - Last 24 Hours (Table) 08/25/21 22:20 Blood Culture - Preliminary Blood No Growth after 24 hours 08/25/21 22:07 Blood Culture - Preliminary Blood No Growth after 24 hours Assessment and Plan (1) Leukocytosis Current Visit: Yes Status: Acute Code(s): D72.829 - ELEVATED WHITE BLOOD CELL COUNT, UNSPECIFIED SNOMED Code(s): 322765920 Plan: 1patient with significant elevated white count in this patient presented to hospital with increasing shortness of breath with evidence of fluid overload likely from her renal failure which is currently being investigated and the patient is started on dialysis patient did not have any fever during this admission he did have a recent history of biliary stent placement bilirubin is elevated however liver exams are normal with the source question abdominal versus lower extremity cellulitis. 2discontinue Rocephin 3we will empirically start the patient on Unasyn 3 g every 12 hours dose adjusted the kidney function 4we will repeat his CBC CRP, repeat chest x-ray in the morning We will follow on clinical condition and cultures to further adjust medication if needed Thank you for this consultation will follow this patient along with you Time with Patient: Greater than 30
--- NOTE | 2021-08-27 22:30 | P.PN ---
Subjective Progress Note Date: 08/27/21 Patient is a 71-year-old male with a known history of COPD, hypertension, obstructive jaundice, previous history of smoking and recently diagnosed with liver cancer presents to ER with complaints of with complaints of increased shortness of breath and cough. Denies any complaints of chest pain. No fever no chills. Patient is also complaining of abdominal distention and increased recurved and bilateral worsening leg swelling and also yellowish discoloration. Patient was recently admitted to hospital in due to acute COPD exacerbation and was discharged on 06/15/2021. Patient also recently diagnosed with liver cancer and was recently seen at [facility] for biliary stent placement for obstructive jaundice. Patient was seen by oncology as well. Laboratory data showed AST 43 ALT 34 alk phos 201 and bilirubin level is 3.7 on this admission. Other laboratory data showed sodium 125 potassium 6.0 chloride 95 bicarbonate 14 BUN 114 and creatinine 7.2 WBC 21.7 hemoglobin 12.3 and platelets 244 . proBNP is 944 and albumin 3.4 Chest x-ray showed no acute cardiopulmonary process. COPD changes. EKG showed nonspecific ST-T wave changes. Patient was given calcium gluconate, D50 and insulin due to hyperkalemia. Potassium level is trending down. Patient is being continued on normal saline. A Pinto cath was placed. 08/27/2021 Patient is currently sitting in the chair. Seems to be more lethargic and confused today. Patient does have very minimal urine output NG tube fluid overload and worsening creatinine level patient is being started on dialysis. Vascular surgery was consulted for dialysis catheter access. Otherwise patient still having significant leukocytosis and is being continued on IV antibiotics for possible abdominal source versus pneumonia. ID will will be consulted. Patient does have history of liver mass and jaundice with possible primary cholangiocarcinoma. Oncology is on board. Patient is supposed to begin his first chemotherapy this week are currently on hold. Laboratory showed WBC 36.7 hemoglobin 12.1 and platelets 234 Sodium 130 potassium 5.9 chloride 89 BUN 129 creatinine 7.9 phosphorus 11.4 and procalcitonin level is 0.82. Current medications reviewed. Objective - Vital Signs Vital signs: Vital Signs Temp 98 F 08/27/21 20:00 Pulse 89 08/27/21 20:14 Resp 16 08/27/21 20:00 BP 95/51 08/27/21 20:00 Pulse Ox 96 08/27/21 20:00 Intake & Output 08/27/21 08/27/21 08/28/21 06:59 18:59 06:59 Intake Total 480 296 Output Total 1302 1050 Balance -822 -754 Weight 92 kg Intake: Oral 480 296 Output: Urine 1300 50 Uretheral (Pinto) 250 Stool 2 Hemodialysis 1000 Other: Voiding Method Indwelling Catheter Urinal # Bowel Movements 1 - Exam PHYSICAL EXAMINATION: Patient is lying in the bed comfortably, no acute distress, awake alert and oriented.. HEENT: Normocephalic. Neck is supple. Pupils reactive. Nostrils clear. Oral cavity is moist. Neck reveals no JVD, carotid bruits, or thyromegaly. CHEST EXAMINATION: Trachea is central. Symmetrical expansion. Bibasilar diminished sounds. No wheezing. Lung hernández clear to auscultation and percussion. CARDIAC: Normal S1, S2 with no gallops. No murmurs ABDOMEN: Soft. Bowel sounds present. Distended with ascites. Nontender.. No organomegaly. No abdominal bruits. Extremities: Bilateral lower extremity 3+ edema. No clubbing or cyanosis Neurologically awake, alert, oriented x2-3 with well-coordinated movements. No gross focal deficits noted Skin: No rash or skin lesions. Psychiatric: Coperative. Nonsuicidal Musculoskeletal: No joint swelling or deformity. Normal range of motion. - Labs CBC & Chem 7: 08/27/21 05:19 08/27/21 05:19 Labs: Abnormal Lab Results - Last 24 Hours (Table) 08/26/21 08/27/21 08/27/21 Range/Units 16:05 05:19 05:19 WBC 36.74 H (4.50-10.00) X 10*3/uL RBC 3.71 L (4.40-5.60) X 10*6/uL Hgb 12.1 L (13.0-17.0) g/dL Hct 35.6 L (39.6-50.0) % MCH 32.6 H (27.0-32.0) pg RDW 16.7 H (11.5-14.5) % MPV 8.9 L (9.5-12.2) fL Immature Gran # 1.15 H (0.00-0.04) X 10*3/uL Neutrophils # 33.70 H (1.80-7.70) X 10*3/uL Lymphocytes # 0.50 L (0.90-5.00) X 10*3/uL Monocytes # 1.27 H (0.20-1.00) X 10*3/uL Eosinophils # 0 L (0.04-0.35) X 10*3/uL Basophils # 0.12 H (0.00-0.10) X 10*3/uL Sodium 129 L 130 L (135-145) mmol/L Potassium 5.7 H 5.9 H (3.5-5.5) mmol/L Chloride 94 L 89 L (96-109) mmol/L Carbon Dioxide 13.9 L 16.6 L (20.0-27.5) mmol/L Anion Gap 21.10 H 24.40 H (10.00-18.00) mmol/L BUN 117.0 H* 129.0 H* (9.0-27.0) mg/dL Creatinine 7.2 H* 7.9 H* (0.6-1.5) mg/dL Est GFR (CKD-EPI)AfAm 8.1 L 7.2 L (60.0-200.0) Est GFR (CKD-EPI)NonAf 7.0 L 6.2 L (60.0-200.0) Glucose 135 H 152 H (70-110) mg/dL Calcium 8.5 L 8.4 L (8.7-10.3) mg/dL Phosphorus 11.4 H* (2.4-5.1) mg/dL Microbiology - Last 24 Hours (Table) 08/25/21 22:20 Blood Culture - Preliminary Blood No Growth after 24 hours 08/25/21 22:07 Blood Culture - Preliminary Blood No Growth after 24 hours Assessment and Plan Assessment: Acute kidney injury possible ATN and hepatorenal. Creatinine 7.2 on admission. Previous baseline creatinine within normal limits. Hyperkalemia secondary to above Obstructive jaundice with underlying malignancy in the hepatic, pancreatobiliary system status post biliary stent placement at [facility].Primary cholangiocarcinoma Ascites and bilateral lower extremity edema COPD not in exacerbation Hypertension Hypervolemic hyponatremia Leukocytosis DVT prophylaxis with heparin subcu Plan: Patient was on IV hydration and he does have very minimal urine output. Was on bicarb drip. Potassium level is improving. Patient is refusing Pinto cath. Nephrology is planning for hemodialysis today. Continue with IV antibiotics and ID will be consulted due to worsening leukocytosis. Nephrology, oncology and pulmonary is on board. Prognosis poor at this time. Time with Patient: Greater than 30
[2021-08-28 00:06] LABS: Hepatitis B Surface Antigen Nonreactive (Nonreactive)
[2021-08-28 04:55] LABS: Hepatitis B Surface AB- Quant 3.5 mIU/mL; Hepatitis B Surface Antibody Nonreactive (Nonreactive)
[2021-08-28 06:08] LABS: Appearance,Urine Turbid (Clear); Bacteria,Urine Moderate /hpf; Bilirubin,Urine Negative (Negative); Blood,Urine Large (Negative); Budding Yeast,Urine Many /hpf; Color,Urine Dark Brown; Glucose,Urine (UA) Negative (Negative); Hyaline Casts,Urine 15 /lpf (0-2); Ketones,Urine Negative (Negative); Leukocyte Esterase,Urine Large (Negative); Mucus,Urine Rare /hpf; Nitrite,Urine Negative (Negative); PH, Urine 5.5 (5.0-8.0); Protein,Urine 2+ (Negative); RBC,Urine >182 /hpf (0-5); Specific Gravity,Urine 1.021 (1.001-1.035); Urobilinogen,Urine <2.0 mg/dL (<2.0); WBC,Urine >182 /hpf (0-5)
[2021-08-28] MEDS: AMPICILLIN-SULBACTAM 3 GM in SODIUM CHLORIDE 0.9% 100 ML IVPB SCH ×2 (06:17→10:51)
[2021-08-28] MEDS: DEXTROSE 5% IN WATER 1,000 ML with SODIUM BICARB (1 MEQ/ML) 150 ML IV SCH ×2 (06:17→08:34)
--- NOTE | 2021-08-28 06:36 | XR ---
EXAMINATION TYPE: XR chest 1V portable DATE OF EXAM: 08/28/2021 CLINICAL HISTORY: Difficulty breathing and pneumonia progress study. TECHNIQUE: Single AP portable upright view of the chest is obtained. COMPARISON: Chest x-ray from 08/25/2021 and older studies FINDINGS: Background chronic emphysematous and pulmonary parenchymal changes redemonstrated without suspicious focal airspace opacity, pleural effusion, or pneumothorax seen bilaterally. Cardiac silhou ette size is stable and within normal limits. Osseous structures are intact. IMPRESSION: Chronic changes without acute pulmonary process. No significant change from most recent x -ray.
[2021-08-28] MEDS: IPRATROPIUM-ALBUTEROL 3 ML NEB INHALATION SCH ×4 (08:16→20:51)
[2021-08-28] MEDS: SYMBICORT 160-4.5 MCG INHALER INHALATION SCH ×2 (08:17→20:51)
[2021-08-28] MEDS: HEPARIN SODIUM,PORCINE/PF 5,000 UNIT/0.5 ML SYRINGE SQ SCH ×2 (08:45→22:31)
[2021-08-28] MEDS: MIDODRINE 5 MG TAB PO SCH ×3 (08:45→17:20)
[2021-08-28 09:29] LABS: C Reactive Protein 3.3 mg/dL (0.00-0.80)
--- NOTE | 2021-08-28 09:31 | P.PN ---
Subjective Patient is seen in follow-up for acute kidney injury. Started on hemodialysis 08/27/2021. Urine output 150 mL overnight. Has a Pinto catheter. Tolerating dialysis well. Hemodynamically stable. Vital signs are stable. General: Sitting up in bed. HEENT: Head exam is unremarkable. LUNGS:Breath sounds decreased. HEART: Rate and Rhythm are regular. ABDOMEN: Soft, nontender. EXTREMITITES: 1+ edema. Objective - Vital Signs Vital signs: Vital Signs Temp 97.5 F L 08/28/21 08:00 Pulse 84 08/28/21 08:30 Resp 16 08/28/21 08:00 BP 116/65 08/28/21 08:00 Pulse Ox 95 08/28/21 08:00 Intake & Output 08/27/21 08/28/21 08/28/21 18:59 06:59 18:59 Intake Total 296 Output Total 1050 150 Balance -754 -150 Weight 92 kg Intake: Oral 296 Output: Urine 50 150 Hemodialysis 1000 Other: Voiding Method Urinal Indwelling Catheter Indwelling Catheter - Labs CBC & Chem 7: 08/27/21 05:19 08/27/21 05:19 Labs: Abnormal Lab Results - Last 24 Hours (Table) 08/27/21 08/27/21 08/28/21 Range/Units 05:19 05:19 05:50 WBC 36.74 H (4.50-10.00) X 10*3/uL RBC 3.71 L (4.40-5.60) X 10*6/uL Hgb 12.1 L (13.0-17.0) g/dL Hct 35.6 L (39.6-50.0) % MCH 32.6 H (27.0-32.0) pg RDW 16.7 H (11.5-14.5) % MPV 8.9 L (9.5-12.2) fL Immature Gran # 1.15 H (0.00-0.04) X 10*3/uL Neutrophils # 33.70 H (1.80-7.70) X 10*3/uL Lymphocytes # 0.50 L (0.90-5.00) X 10*3/uL Monocytes # 1.27 H (0.20-1.00) X 10*3/uL Eosinophils # 0 L (0.04-0.35) X 10*3/uL Basophils # 0.12 H (0.00-0.10) X 10*3/uL Sodium 130 L (135-145) mmol/L Potassium 5.9 H (3.5-5.5) mmol/L Chloride 89 L (96-109) mmol/L Carbon Dioxide 16.6 L (20.0-27.5) mmol/L Anion Gap 24.40 H (10.00-18.00) mmol/L BUN 129.0 H* (9.0-27.0) mg/dL Creatinine 7.9 H* (0.6-1.5) mg/dL Est GFR (CKD-EPI)AfAm 7.2 L (60.0-200.0) Est GFR (CKD-EPI)NonAf 6.2 L (60.0-200.0) Glucose 152 H (70-110) mg/dL Calcium 8.4 L (8.7-10.3) mg/dL Phosphorus 11.4 H* (2.4-5.1) mg/dL Urine Protein 2+ H (Negative) Urine Blood Large H (Negative) Ur Leukocyte Esterase Large H (Negative) Urine RBC >182 H (0-5) /hpf Urine WBC >182 H (0-5) /hpf Urine Bacteria Moderate H (None) /hpf Hyaline Casts 15 H (0-2) /lpf Urine Mucus Rare H (None) /hpf Urine Yeast (Budding) Many H (None) /hpf Microbiology - Last 24 Hours (Table) 08/25/21 22:07 Blood Culture - Preliminary Blood No Growth after 48 hours 08/25/21 22:20 Blood Culture - Preliminary Blood No Growth after 48 hours Assessment and Plan Plan: Assessment: 1. Acute kidney injury secondary to ATN secondary to hypotension. Baseline creatinine near 1 from June 2021. Creatinine over 7 on admission with no improvement. Now oliguric. No hydronephrosis noted on kidney ultrasound. 2. Hyperkalemia secondary to acute kidney injury. Improved with medical management. 3. Hypervolemic hyponatremia. 4. Metabolic acidosis secondary to acute kidney injury. Status post bicarb drip. Currently does not have IV access. 5. Cholangiocarcinoma the biliary duct. Recent intervention done at [facility] in June 2021. Oncology following. 6. Hyperphosphatemia secondary to acute kidney injury. Plan: Currently seen while undergoing hemodialysis. Third treatment tomorrow. Follow-up morning labs. Maintain Pinto. Strict is and os. Add PhosLo. Continue dialysis for now as a supportive measure. However if no further treatment planned for the underlying malignancy, then comfort measures should be considered. This was also discussed with the son present at bedside.
[2021-08-28 09:42] LABS: African American GFR (CKD) 9.5 (60.0-200.0); Albumin 3.1 g/dL (3.8-4.9); Albumin/Globulin Ratio 1.48 (1.60-3.17); Anion Gap 17.9 mmol/L (10.00-18.00); BUN/Creat Ratio 13.68 Ratio (12.00-20.00); Blood Urea Nitrogen 86.2 mg/dL (9.0-27.0); Calcium 8.2 mg/dL (8.7-10.3); Carbon Dioxide 21.1 mmol/L (20.0-27.5); Globulin 2.1 g/dL (1.6-3.3); Non-African American GFR(CKD) 8.2 (60.0-200.0); Potassium 5.1 mmol/L (3.5-5.5); Total Bilirubin 2.7 mg/dL (0.30-1.20); Total Protein 5.2 g/dL (6.2-8.2)
[2021-08-28] MEDS ORDERED: HYDROmorphone 1 MG/ML 1 ML SYRINGE IVP PRN (10:40)
[2021-08-28 10:54] LABS: Basophils # (A) 0.07 X 10*3/uL (0.00-0.10); Basophils % (A) 0.3 %; Eosinophils # (A) 0 X 10*3/uL (0.04-0.35); Eosinophils % (A) 0 %; HCT 32.1 % (39.6-50.0); HGB 10.6 g/dL (13.0-17.0); Lymphocytes # (A) 0.38 X 10*3/uL (0.90-5.00); Lymphocytes % (A) 1.4 %; Mean Platelet Volume 8.9 fL (9.5-12.2); Monocytes # (A) 1.99 X 10*3/uL (0.20-1.00); Monocytes % (A) 7.5 %; NRBC Per 100 WBC 0.2 /100 WBCS (0.0-0.0); Neutrophils # (A) 23.42 X 10*3/uL (1.80-7.70); Neutrophils % (A) 87.8 %; Platelet Count 148 X 10*3/uL (140-440); RBC 3.31 X 10*6/uL (4.40-5.60); RDW 16.6 % (11.5-14.5); WBC 26.66 X 10*3/uL (4.50-10.00)
--- NOTE | 2021-08-28 11:53 | P.PN ---
Subjective Progress Note Date: 08/28/21 Seen and examined sitting up in bed. Yesterday he underwent a temporary hemodialysis catheter placement in the left common femoral vein. He is currently undergoing dialysis and is running fine. Objective - Vital Signs Vital signs: Vital Signs Temp 97.5 F L 08/28/21 08:00 Pulse 84 08/28/21 08:30 Resp 16 08/28/21 08:00 BP 116/65 08/28/21 08:00 Pulse Ox 95 08/28/21 08:00 Intake & Output 08/27/21 08/28/21 08/28/21 18:59 06:59 18:59 Intake Total 296 Output Total 1050 150 Balance -754 -150 Weight 92 kg Intake: Oral 296 Output: Urine 50 150 Hemodialysis 1000 Other: Voiding Method Urinal Indwelling Catheter Indwelling Catheter - Exam General appearance: The patient is alert, oriented, appears in no acute distress. HET: Head is normocephalic and atraumatic. Pupils are equal and reactive. Neck: Supple without lymphadenopathy. Trachea midline. No audible carotid bruit. Abdomen: Soft, nontender, nondistended. Extremities: Normal skin color and turgor. Left groin with HD catheter intact. Neurological: No focal deficits. Alert and oriented 3. - Labs CBC & Chem 7: 08/28/21 04:49 08/28/21 04:49 Labs: Abnormal Lab Results - Last 24 Hours (Table) 08/27/21 08/27/21 08/28/21 Range/Units 05:19 05:19 05:50 WBC 36.74 H (4.50-10.00) X 10*3/uL RBC 3.71 L (4.40-5.60) X 10*6/uL Hgb 12.1 L (13.0-17.0) g/dL Hct 35.6 L (39.6-50.0) % MCH 32.6 H (27.0-32.0) pg RDW 16.7 H (11.5-14.5) % MPV 8.9 L (9.5-12.2) fL Immature Gran # 1.15 H (0.00-0.04) X 10*3/uL Neutrophils # 33.70 H (1.80-7.70) X 10*3/uL Lymphocytes # 0.50 L (0.90-5.00) X 10*3/uL Monocytes # 1.27 H (0.20-1.00) X 10*3/uL Eosinophils # 0 L (0.04-0.35) X 10*3/uL Basophils # 0.12 H (0.00-0.10) X 10*3/uL Sodium 130 L (135-145) mmol/L Potassium 5.9 H (3.5-5.5) mmol/L Chloride 89 L (96-109) mmol/L Carbon Dioxide 16.6 L (20.0-27.5) mmol/L Anion Gap 24.40 H (10.00-18.00) mmol/L BUN 129.0 H* (9.0-27.0) mg/dL Creatinine 7.9 H* (0.6-1.5) mg/dL Est GFR (CKD-EPI)AfAm 7.2 L (60.0-200.0) Est GFR (CKD-EPI)NonAf 6.2 L (60.0-200.0) Glucose 152 H (70-110) mg/dL Calcium 8.4 L (8.7-10.3) mg/dL Phosphorus 11.4 H* (2.4-5.1) mg/dL Urine Protein 2+ H (Negative) Urine Blood Large H (Negative) Ur Leukocyte Esterase Large H (Negative) Urine RBC >182 H (0-5) /hpf Urine WBC >182 H (0-5) /hpf Urine Bacteria Moderate H (None) /hpf Hyaline Casts 15 H (0-2) /lpf Urine Mucus Rare H (None) /hpf Urine Yeast (Budding) Many H (None) /hpf Microbiology - Last 24 Hours (Table) 08/25/21 22:07 Blood Culture - Preliminary Blood No Growth after 48 hours 08/25/21 22:20 Blood Culture - Preliminary Blood No Growth after 48 hours Assessment and Plan Assessment: 1. Acute kidney injury requiring hemodialysis that is post non-tunneled temporary HD catheter placement 2. Hyperkalemia secondary to acute kidney injury 3. Cholangiocarcinoma 4. History of COPD oxygen dependent Plan: 1. Hemodialysis per recommendations from nephrology Thank you for this consultation, we will sign off at this time. The impression and plan of care has been dictated as directed. Dr. Cuppari I performed a history and examination of this patient, discussed the same with the dictator. I agree with the dictator's note ,documented as a scribe. Any additional findings or plans will be noted.
[2021-08-28] MEDS: NYSTATIN 100,000 UNIT/ML SUSP 500,000 UNIT/5 ML CUP PO SCH ×3 (12:37→22:31)
[2021-08-28] MEDS: CALCIUM ACETATE 667 MG TAB PO SCH ×2 (12:37→17:20)
--- NOTE | 2021-08-28 12:37 | P.PN ---
Subjective Progress Note Date: 08/28/21 Principal diagnosis: COPD exacerbation, ARF, liver failure. Newly diagnosed cholangiocarcinoma In f/u brother (caregiver) and son at bedside. Pt states his perirectal area is sore from diarrhea and tail bone is sore from sitting-RN report stage II decubitus. Pt is not able to ambulate or stand for very long period of time. He is on dialysis today. Objective - Vital Signs Vital signs: Vital Signs Temp 97.7 F 08/28/21 11:34 Pulse 96 08/28/21 11:34 Resp 21 08/28/21 11:34 BP 135/73 08/28/21 11:34 Pulse Ox 95 08/28/21 08:00 Intake & Output 08/27/21 08/28/21 08/28/21 18:59 06:59 18:59 Intake Total 296 300 Output Total 0641 938 5044 Balance -754 -150 -1000 Weight 92 kg Intake: Oral 296 Hemodialysis 300 Output: Urine 50 150 Hemodialysis 1000 1300 Other: Voiding Method Urinal Indwelling Catheter Indwelling Catheter - Constitutional Constitutional Comment(s): frail, grimacing in pain trying to reposition his backside on the bed General appearance: Present: thin - EENT Eyes: Present: scleral icterus ENT: Present: hearing grossly normal - Respiratory Respiratory: bilateral: diminished - Gastrointestinal General gastrointestinal: Present: normal bowel sounds - Integumentary Integumentary: Present: jaundiced - Musculoskeletal Musculoskeletal: Present: generalized weakness - Psychiatric Psychiatric: Present: A&O x's 3, appropriate affect, intact judgment & insight - Labs CBC & Chem 7: 08/28/21 04:49 08/28/21 04:49 Labs: Abnormal Lab Results - Last 24 Hours (Table) 08/28/21 08/28/21 08/28/21 Range/Units 04:49 04:49 05:50 WBC 26.66 H (4.50-10.00) X 10*3/uL RBC 3.31 L (4.40-5.60) X 10*6/uL Hgb 10.6 L (13.0-17.0) g/dL Hct 32.1 L (39.6-50.0) % RDW 16.6 H (11.5-14.5) % MPV 8.9 L (9.5-12.2) fL Absolute Nucleated RBC 0.04 H (0.00-0.00) X 10*3/uL Immature Gran # 0.80 H (0.00-0.04) X 10*3/uL Neutrophils # 23.42 H (1.80-7.70) X 10*3/uL Lymphocytes # 0.38 L (0.90-5.00) X 10*3/uL Monocytes # 1.99 H (0.20-1.00) X 10*3/uL Eosinophils # 0 L (0.04-0.35) X 10*3/uL NRBC/100 WBC Diff 0.2 H (0.0-0.0) /100 WBCS BUN 86.2 H (9.0-27.0) mg/dL Creatinine 6.3 H (0.6-1.5) mg/dL Est GFR (CKD-EPI)AfAm 9.5 L (60.0-200.0) Est GFR (CKD-EPI)NonAf 8.2 L (60.0-200.0) Calcium 8.2 L (8.7-10.3) mg/dL Magnesium 3.0 H (1.5-2.4) mg/dL Total Bilirubin 2.70 H (0.30-1.20) mg/dL AST 48 H (14-35) U/L Alkaline Phosphatase 170 H (41-126) U/L C-Reactive Protein 3.30 H (0.00-0.80) mg/dL Total Protein 5.2 L (6.2-8.2) g/dL Albumin 3.1 L (3.8-4.9) g/dL Albumin/Globulin Ratio 1.48 L (1.60-3.17) g/dL Urine Protein 2+ H (Negative) Urine Blood Large H (Negative) Ur Leukocyte Esterase Large H (Negative) Urine RBC >182 H (0-5) /hpf Urine WBC >182 H (0-5) /hpf Urine Bacteria Moderate H (None) /hpf Hyaline Casts 15 H (0-2) /lpf Urine Mucus Rare H (None) /hpf Urine Yeast (Budding) Many H (None) /hpf Microbiology - Last 24 Hours (Table) 08/25/21 22:07 Blood Culture - Preliminary Blood No Growth after 48 hours 08/25/21 22:20 Blood Culture - Preliminary Blood No Growth after 48 hours Assessment and Plan (1) Cholangiocarcinoma Current Visit: Yes Status: Acute Priority: High Code(s): C22.1 - INTRAHEPATIC BILE DUCT CARCINOMA SNOMED Code(s): 315376359 (2) Renal failure Current Visit: Yes Status: Acute Priority: High Code(s): N19 - UNSPECIFIED KIDNEY FAILURE SNOMED Code(s): 35311167 (3) Acute exacerbation of chronic obstructive pulmonary disease Current Visit: Yes Status: Acute Priority: High Code(s): J44.1 - CHRONIC OBSTRUCTIVE PULMONARY DISEASE W (ACUTE) EXACERBATION SNOMED Code(s): 626140075 (4) Acute renal failure Current Visit: Yes Status: Acute Priority: High Code(s): N17.9 - ACUTE KIDNEY FAILURE, UNSPECIFIED SNOMED Code(s): 20055506 (5) Acute respiratory failure with hypoxia Current Visit: Yes Status: Acute Priority: High Code(s): J96.01 - ACUTE RESPIRATORY FAILURE WITH HYPOXIA SNOMED Code(s): 94171205 Plan: Pt has not yet started treatment for cholangiocarcinoma. Patient does not have distant metastatic disease but, there were some CT positive lymph nodes. Unfortunately, patient is not a surgical candidate because of underlying comorbidities. He was not a candidate for first-line doublet therapy because of underlying comorbidities. He was going to do a single agent regimen and see how he tolerated. Now patient has renal failure, requiring dialysis. He is unable to receive cancer treatment at this time. Dr. Connors did discuss the case at Dr. Sanchez. It was discussed with the brother/caregiver and patient's son that based on how patient responds to treatments over the next few days will determine if pt is going to have any recovery that would allow him to be candidate for cancer treatment. Patient's other medical conditions are likely to be fatal before cancer. All of the family's questions were answered to their satisfaction. We will cont to follow with patient in the hospital. US abd does not report significant ascites. Unknown cause for ARF. Nephrology following and treating. Pt was hypoxic on admit, Pulm following and treating. Doctor attests: I performed a history and physical examination of this patient, developed impression and plan of care, discussed with dictator. I agree with dictators note, documented as a scribe.
[2021-08-28] MEDS ORDERED: NALOXONE 0.4 MG/ML 1 ML VIAL IVP PRN (12:44)
[2021-08-28] MEDS ORDERED: NALOXONE 0.4 MG/ML 1 ML VIAL ONE (12:45)
--- NOTE | 2021-08-28 13:03 | P.PN ---
Subjective Progress Note Date: 08/28/21 70-year-old male patient with advanced COPD with an FEV1 of 32% of predicted, maintained on accommodation Symbicort Spiriva and prednisone at 5 mg daily basis for COPD, comes in to the bathroom because of worsening shortness of breath. Patient was in the hospital back in March 2020 and May 2021 for COPD exacerbation. The patient is coming in for essentially the same. He was seen yesterday in the emergency department complaining of worsening shortness of breath. Denied having any chest pain or pleurisy. He had increased cough and dyspnea. No altered mentation. No signs of any CO2 narcosis. Apparently was diagnosed also to have liver cancer and he demonstrated some signs of peripheral edema, increased lower extremity swelling, increased abdominal swelling and he developed also increased jaundiced. He was recently seen at [facility] for insertion of a biliary/pancreatic stent and a stent was placed to relieve his obstructive jaundice. His bilirubin was as high as 36. He has been followed up with oncology also. The patient's LFTs have been quite elevated and they have improved after the insertion of a biliary stent. Most recent bilirubin is down to 3.7. His AST is down to 43 and ALT is down to 34. His alkaline phosphatase is down to 201. His code 19 testing was negative. Nevertheless, the patient developed an acute kidney injury, creatinine was up to 4.7.2 and his sodium was down to 125 with a potassium level of 6.0 and a serum bicarb of 14 with an anion gap of 16. White cell count was 21 with a hemoglobin of 12.3 and platelets of 244. Chest x-ray was consistent with hyperinflation and COPD without any acute cardio pulmonary process. In terms of his hyperkalemia, the patient did not show any acute EKG changes. His EKG showed some nonspecific ST segment abnormalities and there was a lot of motion artifact. No hyperacute T waves. The patient was given calcium gluconate, D50 insulin, and bicarb a total of 100 mEq and the patient was given 2 L of normal saline bolus and another 500 mL of normal saline bolus and currently the patient on normal saline at the rate of 75 mL an hour. He was also given Kayexalate 15 g 1. He has not been seen by nephrology at. I came to find out that the patient has seen Dr. Sandra from oncology. Note that his renal function back in June 2021 was within normal limits and this is obvious an acute kidney injury. 08/27/2021, the patient is still doing same as yesterday. More information is available regarding the patient's malignancy. The patient to the patient had an obstructive jaundice and he had an evaluation for a CAT scan of the chest abdomen and pelvis that showed antral and extra biliary duct and hepatic duct dilatation. Furthermore, the patient underwent MR I and MRCP which showed the same. The patient had bili duct dilatation which extended to the level of the proper hepatic duct and there wasn't abnormal stricture at that level. At that point, the patient was transferred to [facility] and the patient underwent a ERCP and a stent was placed in the biliary duct with good response. Biopsies were consistent with adenocarcinoma and the overall diagnosis seems to be more consistent with colon carcinoma. At this point in time, the patient has not received any treatment. There are some plans to start the patient a combination of chemo using cisplatin and Gemzar or carboplatin and Gemzar or gemzar/oxaliplatin and this has not been initiated yet. Liquid biopsy was also sent regarding EGFR and other mutations. Note that she is developing acute kidney injury. Possibility of hepatorenal syndrome is being entertained. Hypotension/ATN is another possibility. The patient on producing much of urine. He pulled out his Pinot catheter. He refused a Pinto catheter. The Pinto is on the case. The plan is to proceed with hemodialysis. On today's evaluation was 13 6.7 with a hemoglobin 4.1 and a platelet count of 234. And same time, the patient has obvious of the medicine electrodes with a sodium level of 1:30, potassium level of 5.9, BUN is 129 with a creatinine of 7.9. The patient has a phosphorus of 11.4 with a calcium of 8.4. Pro-calcitonin level is at 0.82. Ultrasound the kidneys showed no evidence of any hydronephrosis and there was cholelithiasis. Ultrasound abdomen showed no evidence of any significant ascites in all 4 quadrants. Meanwhile, the patient remains on IV Rocephin as an empiric antibiotic coverage. The patient is on a bicarb infusion. The blood cultures are negative thus far. 08/28/2021, the patient is lethargic and weak and debilitated. The patient underwent hemodialysis yesterday and a second session of the with us is being done today with a goal of 1.5 L of ultrafiltration. He remains weak. He is having difficulty with swallowing and immediately some oropharyngeal candidiasis was noted and the patient was started on nystatin oral suspension. He remains on IV Unasyn for now per IDs recommendation. Swelling in lower extremities have been improving. The patient is meanwhile is quite debilitated. Is a bit lethargic. Continues to have leukocytosis otherwise echo 26.6. Continue insulin jaundice. The renal function is improved slightly with dialysis and the BUN is at 86 with a creatinine of 6.3. The serum bicarb is 21 with a sodium level of 135. The potassium level is also improving is down to 5.1. LFTs are improved and her bilirubin is down to 2.7, AST is 48, ALT is 41, alkaline phosphatase 170. On a separate note, the patient's UA was abnormal and the patient has a signs of infection with elevated white cells and RBCs and large amount of nitrites. The patient remains on antibiotics with IV Unasyn. Blood cultures of been negative thus far. No signs of any respiratory distress. The patient also has COPD. COPD severe with an FEV1 of 32% of predicted and the patient remains on 4 L about 2 by nasal cannula with a pulse of 99%. He is afebrile. Hemodynamically stable at this point in time. Objective - Vital Signs Vital signs: Vital Signs Temp 97.7 F 08/28/21 11:34 Pulse 96 08/28/21 11:34 Resp 12 08/28/21 12:46 BP 135/73 08/28/21 11:34 Pulse Ox 95 08/28/21 08:00 Intake & Output 08/27/21 08/28/21 08/28/21 18:59 06:59 18:59 Intake Total 296 300 Output Total 5834 048 2752 Balance -754 -150 -1000 Weight 92 kg Intake: Oral 296 Hemodialysis 300 Output: Urine 50 150 Hemodialysis 1000 1300 Other: Voiding Method Urinal Indwelling Catheter Indwelling Catheter - Exam Patient is obese, comfortable not in acute respiratory distress and the patient is not using accessory muscles of breathing, the patient is jaundice. The patient is on 4 L of oxygen by nasal cannula Head exam was generally normal. There was no scleral icterus or corneal arcus. Mucous membranes were moist. Neck was supple and without jugular venous distension, thyromegaly, or carotid bruits. Carotids were easily palpable bilaterally. There was no adenopathy. The patient is a Mallampati class IV. Lungs sounds are diminished and the patient has diffuse expiratory wheezes throughout the lung hernández bilaterally and prolongation of exhalation phase of breathing Cardiac exam revealed the PMI to be normally situated and sized. The rhythm was regular and no extrasystoles were noted during several minutes of auscultation. The first and second heart sounds were normal and physiologic splitting of the second heart sound was noted. There were no murmurs, rubs, clicks, or gallops. Abdominal exam revealed normal bowel sounds. The abdomen was soft, non-tender, and without masses, organomegaly, or appreciable enlargement of the abdominal aorta. The patient has abdominal distention and ascites. Organs cannot be accurately palpated Examination of the extremities revealed easily palpable radial, femoral and pedal pulses. There was no cyanosis, clubbing and there is significant edema in all 4 extremities pressure lower extremities bilaterally. There is +2-3 pitting edema. Note that there is improvement edema in lower extremity is bilaterally as the patient is undergoing hemodialysis. Examination of the skin revealed no evidence of significant rashes, suspicious appearing nevi or other concerning lesions. The patient has jaundice. Neurologically, the patient is awake and alert and the patient does not have any focal neurological deficit. Cranial nerves are essentially intact. - Labs CBC & Chem 7: 08/28/21 04:49 08/28/21 04:49 Labs: Abnormal Lab Results - Last 24 Hours (Table) 08/28/21 08/28/21 08/28/21 Range/Units 04:49 04:49 05:50 WBC 26.66 H (4.50-10.00) X 10*3/uL RBC 3.31 L (4.40-5.60) X 10*6/uL Hgb 10.6 L (13.0-17.0) g/dL Hct 32.1 L (39.6-50.0) % RDW 16.6 H (11.5-14.5) % MPV 8.9 L (9.5-12.2) fL Absolute Nucleated RBC 0.04 H (0.00-0.00) X 10*3/uL Immature Gran # 0.80 H (0.00-0.04) X 10*3/uL Neutrophils # 23.42 H (1.80-7.70) X 10*3/uL Lymphocytes # 0.38 L (0.90-5.00) X 10*3/uL Monocytes # 1.99 H (0.20-1.00) X 10*3/uL Eosinophils # 0 L (0.04-0.35) X 10*3/uL NRBC/100 WBC Diff 0.2 H (0.0-0.0) /100 WBCS BUN 86.2 H (9.0-27.0) mg/dL Creatinine 6.3 H (0.6-1.5) mg/dL Est GFR (CKD-EPI)AfAm 9.5 L (60.0-200.0) Est GFR (CKD-EPI)NonAf 8.2 L (60.0-200.0) Calcium 8.2 L (8.7-10.3) mg/dL Magnesium 3.0 H (1.5-2.4) mg/dL Total Bilirubin 2.70 H (0.30-1.20) mg/dL AST 48 H (14-35) U/L Alkaline Phosphatase 170 H (41-126) U/L C-Reactive Protein 3.30 H (0.00-0.80) mg/dL Total Protein 5.2 L (6.2-8.2) g/dL Albumin 3.1 L (3.8-4.9) g/dL Albumin/Globulin Ratio 1.48 L (1.60-3.17) g/dL Urine Protein 2+ H (Negative) Urine Blood Large H (Negative) Ur Leukocyte Esterase Large H (Negative) Urine RBC >182 H (0-5) /hpf Urine WBC >182 H (0-5) /hpf Urine Bacteria Moderate H (None) /hpf Hyaline Casts 15 H (0-2) /lpf Urine Mucus Rare H (None) /hpf Urine Yeast (Budding) Many H (None) /hpf Microbiology - Last 24 Hours (Table) 08/25/21 22:07 Blood Culture - Preliminary Blood No Growth after 48 hours 08/25/21 22:20 Blood Culture - Preliminary Blood No Growth after 48 hours Assessment and Plan Plan: 1 COPD, advanced, severe. Stable with a baseline FEV1 of 32% of predicted and the patient is maintained on a combination of Symbicort Spiriva and prednisone on outpatient basis. 2 cholangiocarcinoma with secondary obstructive jaundice post insertion of a biliary stent and the patient has not received any treatment yet. LFTs have already improved 3 acute kidney injury, currently has a Pinto catheter in place. The patient remains oliguric. Urine output is limited at this point in time. The patient's creatinine is on the rise. The patient has elevated phosphorus level, potassium level with significant electrode disturbance a massive fluid overload. The patient is in need for hemodialysis. Nephrology on the case and consider underlying hepatorenal syndrome. The patient was started hemodialysis. He is receiving his second session of hemodialysis today. 4 hypertension 5 mild CAD with mild pulmonary hypertension based on echocardiogram that was done on 12/29/2013 6 mild lactic acidosis, secondary to above 7 acute hyperkalemia, improving with hemodialysis 8 acute leukocytosis, improving 9 acute hyponatremia , , improvement in the sodium level is up to normal 10 UTI suspected, currently on IV Unasyn 11 jaundice 12 lower extremity edema, improving with dialysis and ultrafiltration. Plan Continue hemodialysis per nephrology Moderate candidate for chemotherapy at this point in time because of his underlying comorbidities and very poor baseline performance and functional status Continue IV Unasyn PhosLo was added by nephrology Consult nephrology Discontinue the bicarb infusion Prognosis poor baseline above-mentioned comorbidities.
--- NOTE | 2021-08-28 23:13 | P.PN ---
Subjective Progress Note Date: 08/28/21 Patient is a 71-year-old male with a known history of COPD, hypertension, obstructive jaundice, previous history of smoking and recently diagnosed with liver cancer presents to ER with complaints of with complaints of increased shortness of breath and cough. Denies any complaints of chest pain. No fever no chills. Patient is also complaining of abdominal distention and increased recurved and bilateral worsening leg swelling and also yellowish discoloration. Patient was recently admitted to hospital in due to acute COPD exacerbation and was discharged on 06/15/2021. Patient also recently diagnosed with liver cancer and was recently seen at [facility] for biliary stent placement for obstructive jaundice. Patient was seen by oncology as well. Laboratory data showed AST 43 ALT 34 alk phos 201 and bilirubin level is 3.7 on this admission. Other laboratory data showed sodium 125 potassium 6.0 chloride 95 bicarbonate 14 BUN 114 and creatinine 7.2 WBC 21.7 hemoglobin 12.3 and platelets 244 . proBNP is 944 and albumin 3.4 Chest x-ray showed no acute cardiopulmonary process. COPD changes. EKG showed nonspecific ST-T wave changes. Patient was given calcium gluconate, D50 and insulin due to hyperkalemia. Potassium level is trending down. Patient is being continued on normal saline. A Pinto cath was placed. 08/27/2021 Patient is currently sitting in the chair. Seems to be more lethargic and confused today. Patient does have very minimal urine output NG tube fluid overload and worsening creatinine level patient is being started on dialysis. Vascular surgery was consulted for dialysis catheter access. Otherwise patient still having significant leukocytosis and is being continued on IV antibiotics for possible abdominal source versus pneumonia. ID will will be consulted. Patient does have history of liver mass and jaundice with possible primary cholangiocarcinoma. Oncology is on board. Patient is supposed to begin his first chemotherapy this week are currently on hold. Laboratory showed WBC 36.7 hemoglobin 12.1 and platelets 234 Sodium 130 potassium 5.9 chloride 89 BUN 129 creatinine 7.9 phosphorus 11.4 and procalcitonin level is 0.82. 08/28/2021 Patient is currently resting in bed. Seems lethargic and drowsy. Patient was started on hemodialysis yesterday with ultrafiltration of 1.5 L. Still having bilateral leg swelling and abdominal distention, slight improvement from yesterday. Patient is being continued antibiotics in the form of Unasyn. Cultures have been negative. Urinalysis showed large leukocyte esterase with elevated RBCs and WBCs. Laboratory showed WBC count improved to 26.6, hemoglobin 10.6 and platelets 148 sodium 135 potassium 5.1 chloride 96 bicarb is 21.1 BUN 86.20 creatinine improved to 6.3. Nephrology and pulmonary and ID is on board. Patient was complaining of pain and was given Dilaudid 0.5 mg x 1 but became very lethargic and unarousable after that. Was given a dose of Narcan. Discussed with family at bedside in detail. Complete review of systems could not be obtained from the patient. Current medications reviewed. Objective - Vital Signs Vital signs: Vital Signs Temp 98.3 F 08/28/21 19:18 Pulse 95 08/28/21 19:18 Resp 17 08/28/21 19:18 BP 95/59 08/28/21 19:18 Pulse Ox 100 08/28/21 20:51 Intake & Output 08/28/21 08/28/21 08/29/21 06:59 18:59 06:59 Intake Total 300 Output Total 150 1330 Balance -150 -1030 Intake: Hemodialysis 300 Output: Urine 150 30 Hemodialysis 1300 Other: Voiding Method Indwelling Catheter Indwelling Catheter Indwelling Catheter - Exam PHYSICAL EXAMINATION: Patient is lying in the bed comfortably, no acute distress, awake alert and oriented.. HEENT: Normocephalic. Neck is supple. Pupils reactive. Nostrils clear. Oral cavity is moist. Neck reveals no JVD, carotid bruits, or thyromegaly. CHEST EXAMINATION: Trachea is central. Symmetrical expansion. Bibasilar diminished sounds. No wheezing. Lung hernández clear to auscultation and percussion. CARDIAC: Normal S1, S2 with no gallops. No murmurs ABDOMEN: Soft. Bowel sounds present. Distended with ascites. Nontender.. No organomegaly. No abdominal bruits. Extremities: Bilateral lower extremity 3+ edema. No clubbing or cyanosis Neurologically awake, alert, oriented x2-3 with well-coordinated movements. No gross focal deficits noted Skin: No rash or skin lesions. Psychiatric: Coperative. Nonsuicidal Musculoskeletal: No joint swelling or deformity. Normal range of motion. - Labs CBC & Chem 7: 08/28/21 04:49 03/01/22 04:49 Labs: Abnormal Lab Results - Last 24 Hours (Table) 08/28/21 08/28/21 08/28/21 Range/Units 04:49 04:49 05:50 WBC 26.66 H (4.50-10.00) X 10*3/uL RBC 3.31 L (4.40-5.60) X 10*6/uL Hgb 10.6 L (13.0-17.0) g/dL Hct 32.1 L (39.6-50.0) % RDW 16.6 H (11.5-14.5) % MPV 8.9 L (9.5-12.2) fL Absolute Nucleated RBC 0.04 H (0.00-0.00) X 10*3/uL Immature Gran # 0.80 H (0.00-0.04) X 10*3/uL Neutrophils # 23.42 H (1.80-7.70) X 10*3/uL Lymphocytes # 0.38 L (0.90-5.00) X 10*3/uL Monocytes # 1.99 H (0.20-1.00) X 10*3/uL Eosinophils # 0 L (0.04-0.35) X 10*3/uL NRBC/100 WBC Diff 0.2 H (0.0-0.0) /100 WBCS BUN 86.2 H (9.0-27.0) mg/dL Creatinine 6.3 H (0.6-1.5) mg/dL Est GFR (CKD-EPI)AfAm 9.5 L (60.0-200.0) Est GFR (CKD-EPI)NonAf 8.2 L (60.0-200.0) Calcium 8.2 L (8.7-10.3) mg/dL Magnesium 3.0 H (1.5-2.4) mg/dL Total Bilirubin 2.70 H (0.30-1.20) mg/dL AST 48 H (14-35) U/L Alkaline Phosphatase 170 H (41-126) U/L C-Reactive Protein 3.30 H (0.00-0.80) mg/dL Total Protein 5.2 L (6.2-8.2) g/dL Albumin 3.1 L (3.8-4.9) g/dL Albumin/Globulin Ratio 1.48 L (1.60-3.17) g/dL Urine Protein 2+ H (Negative) Urine Blood Large H (Negative) Ur Leukocyte Esterase Large H (Negative) Urine RBC >182 H (0-5) /hpf Urine WBC >182 H (0-5) /hpf Urine Bacteria Moderate H (None) /hpf Hyaline Casts 15 H (0-2) /lpf Urine Mucus Rare H (None) /hpf Urine Yeast (Budding) Many H (None) /hpf Microbiology - Last 24 Hours (Table) 08/25/21 22:07 Blood Culture - Preliminary Blood No Growth after 48 hours 08/25/21 22:20 Blood Culture - Preliminary Blood No Growth after 48 hours Assessment and Plan Assessment: Acute kidney injury possible ATN and hepatorenal. Creatinine 7.2 on admission. Previous baseline creatinine within normal limits.Patient was initiated on hemodialysis on 08/27/2019 Hyperkalemia secondary to above Metabolic acidosis secondary acute kidney injury Significant leukocytosis likely due to UTI and possible abdominal source of infection Obstructive jaundice with underlying malignancy in the hepatic, pancreatobiliary system status post biliary stent placement at [facility].Primary cholangiocarcinoma Ascites and bilateral lower extremity edema COPD not in exacerbation Hypertension Hypervolemic hyponatremia DVT prophylaxis with heparin subcu Plan: Patient was started hemodialysis with ultrafiltration of 1.5 L. Will be continued antibiotics in the form of Unasyn and follow-up blood cultures and urine cultures. Continue to monitor renal function. Patient is non- oliguric. Nephrology, oncology and pulmonary is on board. Prognosis poor at this time. Time with Patient: Greater than 30
--- NOTE | 2021-08-28 23:52 | P.PN ---
Subjective Progress Note Date: 08/28/21 Principal diagnosis: leukocytosis/infection Patient is a 71-year-old male with a past medical history pertinent for COPD history of liver cancer admitted to hospital with shortness of breath this patient evidence of fluid overload diffuse swelling to lower extremity and renal failure, patient also has elevated white count. On today's evaluation that is 08/29/2019, the patient is afebrile, patient is currently lethargic sleepy undergoing dialysis and management according history no vomiting or any diarrhea was reported by the nursing staff Objective - Vital Signs Vital signs: Vital Signs Temp 97.7 F 08/28/21 11:34 Pulse 96 08/28/21 11:34 Resp 21 08/28/21 11:34 BP 135/73 08/28/21 11:34 Pulse Ox 95 08/28/21 08:00 Intake & Output 08/27/21 08/28/21 08/28/21 18:59 06:59 18:59 Intake Total 296 300 Output Total 0239 346 2847 Balance -754 -150 -1000 Weight 92 kg Intake: Oral 296 Hemodialysis 300 Output: Urine 50 150 Hemodialysis 1000 1300 Other: Voiding Method Urinal Indwelling Catheter Indwelling Catheter - Exam GENERAL DESCRIPTION: An elderly male lying in bed in no distress RESPIRATORY SYSTEM: Unlabored breathing , decreased breath sounds at bases HEART: S1 S2 regular rate and rhythm , ABDOMEN: Soft , no tenderness EXTREMITIES: Diffuse swelling to his lower extremity and did have superficial ulceration to the bilateral feet with some clear drainage - Labs CBC & Chem 7: 08/28/21 04:49 08/28/21 04:49 Labs: Abnormal Lab Results - Last 24 Hours (Table) 08/28/21 08/28/21 08/28/21 Range/Units 04:49 04:49 05:50 WBC 26.66 H (4.50-10.00) X 10*3/uL RBC 3.31 L (4.40-5.60) X 10*6/uL Hgb 10.6 L (13.0-17.0) g/dL Hct 32.1 L (39.6-50.0) % RDW 16.6 H (11.5-14.5) % MPV 8.9 L (9.5-12.2) fL Absolute Nucleated RBC 0.04 H (0.00-0.00) X 10*3/uL Immature Gran # 0.80 H (0.00-0.04) X 10*3/uL Neutrophils # 23.42 H (1.80-7.70) X 10*3/uL Lymphocytes # 0.38 L (0.90-5.00) X 10*3/uL Monocytes # 1.99 H (0.20-1.00) X 10*3/uL Eosinophils # 0 L (0.04-0.35) X 10*3/uL NRBC/100 WBC Diff 0.2 H (0.0-0.0) /100 WBCS BUN 86.2 H (9.0-27.0) mg/dL Creatinine 6.3 H (0.6-1.5) mg/dL Est GFR (CKD-EPI)AfAm 9.5 L (60.0-200.0) Est GFR (CKD-EPI)NonAf 8.2 L (60.0-200.0) Calcium 8.2 L (8.7-10.3) mg/dL Magnesium 3.0 H (1.5-2.4) mg/dL Total Bilirubin 2.70 H (0.30-1.20) mg/dL AST 48 H (14-35) U/L Alkaline Phosphatase 170 H (41-126) U/L C-Reactive Protein 3.30 H (0.00-0.80) mg/dL Total Protein 5.2 L (6.2-8.2) g/dL Albumin 3.1 L (3.8-4.9) g/dL Albumin/Globulin Ratio 1.48 L (1.60-3.17) g/dL Urine Protein 2+ H (Negative) Urine Blood Large H (Negative) Ur Leukocyte Esterase Large H (Negative) Urine RBC >182 H (0-5) /hpf Urine WBC >182 H (0-5) /hpf Urine Bacteria Moderate H (None) /hpf Hyaline Casts 15 H (0-2) /lpf Urine Mucus Rare H (None) /hpf Urine Yeast (Budding) Many H (None) /hpf Microbiology - Last 24 Hours (Table) 08/25/21 22:07 Blood Culture - Preliminary Blood No Growth after 48 hours 08/25/21 22:20 Blood Culture - Preliminary Blood No Growth after 48 hours Assessment and Plan (1) Leukocytosis Current Visit: Yes Status: Acute Code(s): D72.829 - ELEVATED WHITE BLOOD CELL COUNT, UNSPECIFIED SNOMED Code(s): 008124890 Plan: 1patient with significant elevated white count in this patient presented to hospital with increasing shortness of breath with evidence of fluid overload likely from her renal failure which is currently being investigated and the patient is started on dialysis patient did not have any fever during this admission he did have a recent history of biliary stent placement bilirubin is elevated however liver exams are normal with the source question abdominal versus lower extremity cellulitis. 2patient to continue Unasyn 3 g every 12 hours dose adjusted the kidney function 3local wound care to bilateral foot wound with Aquacel silver dressing to be changed daily Son and his brother were at the bedside their multiple questions and those were answered in Layman terms Time with Patient: Less than 30
[2021-08-29] MEDS: ONDANSETRON 4 MG/2 ML VIAL IVP PRN ×3 (08:18→23:43)
[2021-08-29] MEDS: CALCIUM ACETATE 667 MG TAB PO SCH ×4 (08:19→17:54)
[2021-08-29] MEDS: NYSTATIN 100,000 UNIT/ML SUSP 500,000 UNIT/5 ML CUP PO SCH ×5 (08:19→21:57)
[2021-08-29] MEDS: MIDODRINE 5 MG TAB PO SCH ×4 (08:19→17:55)
[2021-08-29] MEDS: AMPICILLIN-SULBACTAM 3 GM in SODIUM CHLORIDE 0.9% 100 ML IVPB SCH (08:20)
[2021-08-29] MEDS: HEPARIN SODIUM,PORCINE/PF 5,000 UNIT/0.5 ML SYRINGE SQ SCH ×2 (08:20→21:58)
[2021-08-29] MEDS: SYMBICORT 160-4.5 MCG INHALER INHALATION SCH ×2 (09:11→19:02)
[2021-08-29] MEDS: IPRATROPIUM-ALBUTEROL 3 ML NEB INHALATION SCH ×4 (09:12→19:02)
--- NOTE | 2021-08-29 09:40 | P.PN ---
Subjective Patient is seen in follow-up for acute kidney injury. Started on hemodialysis 08/27/2021. Urine output 200 mL in the last 24 hours. Has a Pinto catheter. Hemodynamically stable. On 3 L nasal cannula. Son present at bedside. Vital signs are stable. General: Sitting up in bed. HEENT: Head exam is unremarkable. On nasal cannula. LUNGS:Breath sounds decreased. HEART: Rate and Rhythm are regular. ABDOMEN: Soft, nontender. EXTREMITITES: 1+ edema. Objective - Vital Signs Vital signs: Vital Signs Temp 97.8 F 08/29/21 08:00 Pulse 85 08/29/21 09:24 Resp 16 08/29/21 08:00 BP 103/65 08/29/21 08:00 Pulse Ox 96 08/29/21 09:12 Intake & Output 08/28/21 08/29/21 08/29/21 18:59 06:59 18:59 Intake Total 300 Output Total 1330 70 Balance -1030 -70 Intake: Hemodialysis 300 Output: Urine 30 50 Emesis 20 Hemodialysis 1300 Other: Voiding Method Indwelling Catheter Indwelling Catheter - Labs CBC & Chem 7: 08/28/21 04:49 08/28/21 04:49 Labs: Abnormal Lab Results - Last 24 Hours (Table) 08/28/21 08/28/21 Range/Units 04:49 04:49 WBC 26.66 H (4.50-10.00) X 10*3/uL RBC 3.31 L (4.40-5.60) X 10*6/uL Hgb 10.6 L (13.0-17.0) g/dL Hct 32.1 L (39.6-50.0) % RDW 16.6 H (11.5-14.5) % MPV 8.9 L (9.5-12.2) fL Absolute Nucleated RBC 0.04 H (0.00-0.00) X 10*3/uL Immature Gran # 0.80 H (0.00-0.04) X 10*3/uL Neutrophils # 23.42 H (1.80-7.70) X 10*3/uL Lymphocytes # 0.38 L (0.90-5.00) X 10*3/uL Monocytes # 1.99 H (0.20-1.00) X 10*3/uL Eosinophils # 0 L (0.04-0.35) X 10*3/uL NRBC/100 WBC Diff 0.2 H (0.0-0.0) /100 WBCS BUN 86.2 H (9.0-27.0) mg/dL Creatinine 6.3 H (0.6-1.5) mg/dL Est GFR (CKD-EPI)AfAm 9.5 L (60.0-200.0) Est GFR (CKD-EPI)NonAf 8.2 L (60.0-200.0) Calcium 8.2 L (8.7-10.3) mg/dL Total Bilirubin 2.70 H (0.30-1.20) mg/dL AST 48 H (14-35) U/L Alkaline Phosphatase 170 H (41-126) U/L Total Protein 5.2 L (6.2-8.2) g/dL Albumin 3.1 L (3.8-4.9) g/dL Albumin/Globulin Ratio 1.48 L (1.60-3.17) g/dL Microbiology - Last 24 Hours (Table) 08/28/21 04:49 Blood Culture Gram Stain - Preliminary Blood 08/28/21 04:49 Blood Culture - Final Blood 08/25/21 22:07 Blood Culture - Preliminary Blood No Growth after 72 hours 08/25/21 22:20 Blood Culture - Preliminary Blood No Growth after 72 hours Assessment and Plan Plan: Assessment: 1. Acute kidney injury secondary to ATN secondary to hypotension/infection. Baseline creatinine near 1 from June 2021. Creatinine over 7 on admission with no improvement. Now oliguric. No hydronephrosis noted on kidney ultrasound. 2. Hyperkalemia secondary to acute kidney injury. Improved postdialysis. 3. Hypervolemic hyponatremia. Better. 4. Metabolic acidosis secondary to acute kidney injury. Status post bicarb drip. Improved postdialysis. 5. Cholangiocarcinoma the biliary duct. Recent intervention done at [facility] in June 2021. Oncology following. 6. Hyperphosphatemia secondary to acute kidney injury. On PhosLo. 7. Gram-positive bacteremia. On IV antibiotics. Infectious disease following. Plan: Third treatment of hemodialysis today. Maintain Pinto. Strict is and os. Continue dialysis for now as a supportive measure. However if no further treatment planned for the underlying malignancy, then comfort measures should be considered. This was also discussed with the son present at bedside. Continue to monitor for renal recovery as well. Prognosis guarded.
[2021-08-29 10:23] LABS: African American GFR (CKD) 12 (>60 ml/min/1.73 sqM); Anion Gap 13 mmol/L; Anisocytosis Slight; Basophils # (A) 0.1 k/uL (0-0.2); Basophils % (A) 0 %; Blood Urea Nitrogen 72 mg/dL (9-20); Calcium 8.2 mg/dL (8.4-10.2); Carbon Dioxide 24 mmol/L (22-30); Chloride 101 mmol/L (98-107); Eosinophils # (A) 0.1 k/uL (0-0.7); Eosinophils % (A) 0 %; Glucose 117 mg/dL (74-99); HCT 35.1 % (39.0-53.0); HGB 11.7 gm/dL (13.0-17.5); Hypochromasia Slight; Lymphocytes # (A) 0.5 k/uL (1.0-4.8); Lymphocytes % (A) 1 %; MCH 33.3 pg (25.0-35.0); MCHC 33.2 g/dL (31.0-37.0); MCV 100.3 fL (80.0-100.0); Macrocytosis Slight; Mean Platelet Volume 7.2; Monocytes # (A) 1.5 k/uL (0-1.0); Monocytes % (A) 4 %; Neutrophils % (A) 93 %; Non-African American GFR(CKD) 10 (>60 ml/min/1.73 sqM); Platelet Count 142 k/uL (150-450); Poikilocytosis Moderate; Potassium 4.3 mmol/L (3.5-5.1); RDW 16.4 % (11.5-15.5); Sodium 138 mmol/L (137-145); WBC 34.4 k/uL (3.8-10.6)
[2021-08-29 10:54] LABS: Polychromasia Present
[2021-08-29] MEDS: CALCIUM CARBONATE 500 MG CHEWABLE PO PRN (11:33)
--- NOTE | 2021-08-29 12:42 | P.PN ---
Subjective Progress Note Date: 08/29/21 70-year-old male patient with advanced COPD with an FEV1 of 32% of predicted, maintained on accommodation Symbicort Spiriva and prednisone at 5 mg daily basis for COPD, comes in to the bathroom because of worsening shortness of breath. Patient was in the hospital back in March 2020 and May 2021 for COPD exacerbation. The patient is coming in for essentially the same. He was seen yesterday in the emergency department complaining of worsening shortness of breath. Denied having any chest pain or pleurisy. He had increased cough and dyspnea. No altered mentation. No signs of any CO2 narcosis. Apparently was diagnosed also to have liver cancer and he demonstrated some signs of peripheral edema, increased lower extremity swelling, increased abdominal swelling and he developed also increased jaundiced. He was recently seen at [facility] for insertion of a biliary/pancreatic stent and a stent was placed to relieve his obstructive jaundice. His bilirubin was as high as 36. He has been followed up with oncology also. The patient's LFTs have been quite elevated and they have improved after the insertion of a biliary stent. Most recent bilirubin is down to 3.7. His AST is down to 43 and ALT is down to 34. His alkaline phosphatase is down to 201. His code 19 testing was negative. Nevertheless, the patient developed an acute kidney injury, creatinine was up to 4.7.2 and his sodium was down to 125 with a potassium level of 6.0 and a serum bicarb of 14 with an anion gap of 16. White cell count was 21 with a hemoglobin of 12.3 and platelets of 244. Chest x-ray was consistent with hyperinflation and COPD without any acute cardio pulmonary process. In terms of his hyperkalemia, the patient did not show any acute EKG changes. His EKG showed some nonspecific ST segment abnormalities and there was a lot of motion artifact. No hyperacute T waves. The patient was given calcium gluconate, D50 insulin, and bicarb a total of 100 mEq and the patient was given 2 L of normal saline bolus and another 500 mL of normal saline bolus and currently the patient on normal saline at the rate of 75 mL an hour. He was also given Kayexalate 15 g 1. He has not been seen by nephrology at. I came to find out that the patient has seen Dr. Sandra from oncology. Note that his renal function back in June 2021 was within normal limits and this is obvious an acute kidney injury. 08/27/2021, the patient is still doing same as yesterday. More information is available regarding the patient's malignancy. The patient to the patient had an obstructive jaundice and he had an evaluation for a CAT scan of the chest abdomen and pelvis that showed antral and extra biliary duct and hepatic duct dilatation. Furthermore, the patient underwent MR I and MRCP which showed the same. The patient had bili duct dilatation which extended to the level of the proper hepatic duct and there wasn't abnormal stricture at that level. At that point, the patient was transferred to [facility] and the patient underwent a ERCP and a stent was placed in the biliary duct with good response. Biopsies were consistent with adenocarcinoma and the overall diagnosis seems to be more consistent with colon carcinoma. At this point in time, the patient has not received any treatment. There are some plans to start the patient a combination of chemo using cisplatin and Gemzar or carboplatin and Gemzar or gemzar/oxaliplatin and this has not been initiated yet. Liquid biopsy was also sent regarding EGFR and other mutations. Note that she is developing acute kidney injury. Possibility of hepatorenal syndrome is being entertained. Hypotension/ATN is another possibility. The patient on producing much of urine. He pulled out his Pinto catheter. He refused a Pinto catheter. The Pinto is on the case. The plan is to proceed with hemodialysis. On today's evaluation was 13 6.7 with a hemoglobin 4.1 and a platelet count of 234. And same time, the patient has obvious of the medicine electrodes with a sodium level of 1:30, potassium level of 5.9, BUN is 129 with a creatinine of 7.9. The patient has a phosphorus of 11.4 with a calcium of 8.4. Pro-calcitonin level is at 0.82. Ultrasound the kidneys showed no evidence of any hydronephrosis and there was cholelithiasis. Ultrasound abdomen showed no evidence of any significant ascites in all 4 quadrants. Meanwhile, the patient remains on IV Rocephin as an empiric antibiotic coverage. The patient is on a bicarb infusion. The blood cultures are negative thus far. 08/28/2021, the patient is lethargic and weak and debilitated. The patient underwent hemodialysis yesterday and a second session of the with us is being done today with a goal of 1.5 L of ultrafiltration. He remains weak. He is having difficulty with swallowing and immediately some oropharyngeal candidiasis was noted and the patient was started on nystatin oral suspension. He remains on IV Unasyn for now per IDs recommendation. Swelling in lower extremities have been improving. The patient is meanwhile is quite debilitated. Is a bit lethargic. Continues to have leukocytosis otherwise echo 26.6. Continue insulin jaundice. The renal function is improved slightly with dialysis and the BUN is at 86 with a creatinine of 6.3. The serum bicarb is 21 with a sodium level of 135. The potassium level is also improving is down to 5.1. LFTs are improved and her bilirubin is down to 2.7, AST is 48, ALT is 41, alkaline phosphatase 170. On a separate note, the patient's UA was abnormal and the patient has a signs of infection with elevated white cells and RBCs and large amount of nitrites. The patient remains on antibiotics with IV Unasyn. Blood cultures of been negative thus far. No signs of any respiratory distress. The patient also has COPD. COPD severe with an FEV1 of 32% of predicted and the patient remains on 4 L about 2 by nasal cannula with a pulse of 99%. He is afebrile. Hemodynamically stable at this point in time. 320 2021, the patient is doing very poor. He remains very weak and debilitated. Oral intake is very minimal at this point in time. The patient was nauseated throughout the night and the patient was given Zofran. He is weak. His lower extremity edema is improving and the patient is undergoing hemodialysis. Another session of hemodialysis being done today with a goal of ultrafiltration of around 1 L. He does have an underlying UTI and the patient is receiving a combination of Unasyn and daptomycin. The blood culture was positive for staph epidermidis. The white cell count is elevated at 34.4. Hemoglobin was 11.7. BNP is down to 72 with a creatinine of 5.1. Sodium is at 138. He is lethargic and somnolent and weak and quite debilitated. He remains on 3 L of oxygen by nasal cannula and his pulse ox is around 96%. Oncology is on the case. Not a candidate for systemic chemotherapy based on his underlying condition. Pinto catheter is in place family is the bedside. Is afebrile. Objective - Vital Signs Vital signs: Vital Signs Temp 97.8 F 08/29/21 08:00 Pulse 85 08/29/21 12:34 Resp 16 08/29/21 08:28 BP 103/65 08/29/21 08:00 Pulse Ox 96 08/29/21 09:12 Intake & Output 08/28/21 08/29/21 08/29/21 18:59 06:59 18:59 Intake Total 300 Output Total 1330 70 Balance -1030 -70 Intake: Hemodialysis 300 Output: Urine 30 50 Emesis 20 Hemodialysis 1300 Other: Voiding Method Indwelling Catheter Indwelling Catheter Indwelling Catheter - Exam Patient is obese, comfortable not in acute respiratory distress and the patient is not using accessory muscles of breathing, the patient is jaundice. The patient is on 3 L of oxygen by nasal cannula Head exam was generally normal. There was no scleral icterus or corneal arcus. Mucous membranes were moist. Neck was supple and without jugular venous distension, thyromegaly, or carotid bruits. Carotids were easily palpable bilaterally. There was no adenopathy. The patient is a Mallampati class IV. Lungs sounds are diminished and the patient has diffuse expiratory wheezes throughout the lung hernández bilaterally and prolongation of exhalation phase of breathing Cardiac exam revealed the PMI to be normally situated and sized. The rhythm was regular and no extrasystoles were noted during several minutes of auscultation. The first and second heart sounds were normal and physiologic splitting of the second heart sound was noted. There were no murmurs, rubs, clicks, or gallops. Abdominal exam revealed normal bowel sounds. The abdomen was soft, non-tender, and without masses, organomegaly, or appreciable enlargement of the abdominal aorta. The patient has abdominal distention and ascites. Organs cannot be accurately palpated Examination of the extremities revealed easily palpable radial, femoral and pedal pulses. There was no cyanosis, clubbing and there is significant edema in all 4 extremities pressure lower extremities bilaterally. There is +2-3 pitting edema. Note that there is improvement edema in lower extremity is bilaterally as the patient is undergoing hemodialysis. Examination of the skin revealed no evidence of significant rashes, suspicious appearing nevi or other concerning lesions. The patient has jaundice. Neurologically, the patient is awake and alert and the patient does not have any focal neurological deficit. Cranial nerves are essentially intact. - Labs CBC & Chem 7: 08/29/21 09:30 08/29/21 09:30 Labs: Abnormal Lab Results - Last 24 Hours (Table) 08/29/21 08/29/21 Range/Units 09:30 09:30 WBC 34.4 H (3.8-10.6) k/uL RBC 3.50 L (4.30-5.90) m/uL Hgb 11.7 L (13.0-17.5) gm/dL Hct 35.1 L (39.0-53.0) % MCV 100.3 H (80.0-100.0) fL RDW 16.4 H (11.5-15.5) % Plt Count 142 L (150-450) k/uL Neutrophils # 32.0 H (1.3-7.7) k/uL Lymphocytes # 0.5 L (1.0-4.8) k/uL Monocytes # 1.5 H (0-1.0) k/uL BUN 72 H (9-20) mg/dL Creatinine 5.19 H (0.66-1.25) mg/dL Glucose 117 H (74-99) mg/dL Calcium 8.2 L (8.4-10.2) mg/dL Microbiology - Last 24 Hours (Table) 08/28/21 04:49 Blood Culture Gram Stain - Preliminary Blood Blood Culture - Preliminary Staphylococcus epidermidis 08/28/21 04:49 Blood Culture - Final Blood 08/25/21 22:07 Blood Culture - Preliminary Blood No Growth after 72 hours 08/25/21 22:20 Blood Culture - Preliminary Blood No Growth after 72 hours Assessment and Plan Plan: 1 COPD, advanced, severe. Stable with a baseline FEV1 of 32% of predicted and the patient is maintained on a combination of Symbicort Spiriva and prednisone on outpatient basis. 2 cholangiocarcinoma with secondary obstructive jaundice post insertion of a biliary stent and the patient has not received any treatment yet. LFTs have already improved, not a candidate for any systemic chemotherapy based on underlying poor baseline performance and functional status and comorbidities 3 acute kidney injury, currently has a Pinto catheter in place. The patient remains oliguric. Urine output is limited at this point in time. The patient's creatinine is on the rise. The patient has elevated phosphorus level, potassium level with significant electrode disturbance a massive fluid overload. The patient is in need for hemodialysis. Nephrology on the case and consider underlying hepatorenal syndrome. The patient was started hemodialysis. He is receiving his third session of hemodialysis and the patient underwent dialysis for the past 3 days. There is improvement in his electrolytes. His improvement in the creatinine to be urine. There is also some improvement in the volume status. 4 hypertension 5 mild CAD with mild pulmonary hypertension based on echocardiogram that was done on 12/29/2013 6 mild lactic acidosis, secondary to above 7 acute hyperkalemia, improving with hemodialysis 8 acute leukocytosis, the white cell count remains elevated and the patient remains on examination of daptomycin and IV Unasyn 9 acute hyponatremia , , improvement in the sodium level is up to normal 10 UTI suspected, currently on IV Unasyn 11 jaundice 12 lower extremity edema, improving with dialysis and ultrafiltration. Clinically improving with hemodialysis ultrafiltration 13 nausea secondary to GI malignancy and then Zofran 14 staph epidermidis in the blood, likely contaminant Plan Continue hemodialysis per nephrology, the patient developed today's and ago and there is improvement in the potassium level in the volume status Still nauseated Very much debilitated and weakened a very poor appetite The patient is not a candidate for chemotherapy at this point in time because of his underlying comorbidities and very poor baseline performance and functional status Continue IV Unasyn Daptomycin was also added by infectious disease PhosLo was added by nephrology Consult nephrology Current than 3 L of O2 by nasal cannula. Exudative poor prognosis. We'll see the patient only when necessary and will leave the resident is up to nephrology, medicine and oncology. No active pulmonary issues for now.
--- NOTE | 2021-08-29 14:27 | P.PN ---
Subjective Progress Note Date: 08/29/21 Principal diagnosis: Renal and liver failure Dialysis third treatment today, family at bedside today. He is still very weak. Objective - Vital Signs Vital signs: Vital Signs Temp 97.8 F 08/29/21 12:59 Pulse 105 H 08/29/21 12:59 Resp 20 08/29/21 12:59 BP 105/62 08/29/21 12:59 Pulse Ox 96 08/29/21 09:12 Intake & Output 08/28/21 08/29/21 08/29/21 18:59 06:59 18:59 Intake Total 300 300 Output Total 1330 70 500 Balance -1030 -70 -200 Intake: Hemodialysis 300 300 Output: Urine 30 50 Emesis 20 Hemodialysis 1300 500 Other: Voiding Method Indwelling Catheter Indwelling Catheter Indwelling Catheter - Exam - Constitutional Constitutional Comment(s): frail, grimacing in pain trying to reposition his backside on the bed General appearance: Present: thin - EENT Eyes: Present: scleral icterus ENT: Present: hearing grossly normal - Respiratory Respiratory: bilateral: diminished - Gastrointestinal General gastrointestinal: Present: normal bowel sounds - Integumentary Integumentary: Present: jaundiced Eccymosis on arms arms and leg - Musculoskeletal Musculoskeletal: Present: generalized weakness - Psychiatric Psychiatric: Present: A&O x's 3, appropriate affect, intact judgment & insight - Labs CBC & Chem 7: 08/29/21 09:30 08/29/21 09:30 Labs: Abnormal Lab Results - Last 24 Hours (Table) 08/29/21 08/29/21 Range/Units 09:30 09:30 WBC 34.4 H (3.8-10.6) k/uL RBC 3.50 L (4.30-5.90) m/uL Hgb 11.7 L (13.0-17.5) gm/dL Hct 35.1 L (39.0-53.0) % MCV 100.3 H (80.0-100.0) fL RDW 16.4 H (11.5-15.5) % Plt Count 142 L (150-450) k/uL Neutrophils # 32.0 H (1.3-7.7) k/uL Lymphocytes # 0.5 L (1.0-4.8) k/uL Monocytes # 1.5 H (0-1.0) k/uL BUN 72 H (9-20) mg/dL Creatinine 5.19 H (0.66-1.25) mg/dL Glucose 117 H (74-99) mg/dL Calcium 8.2 L (8.4-10.2) mg/dL Microbiology - Last 24 Hours (Table) 08/28/21 04:49 Blood Culture Gram Stain - Preliminary Blood Blood Culture - Preliminary Staphylococcus epidermidis 08/28/21 04:49 Blood Culture - Final Blood 08/25/21 22:07 Blood Culture - Preliminary Blood No Growth after 72 hours 08/25/21 22:20 Blood Culture - Preliminary Blood No Growth after 72 hours Assessment and Plan (1) Cholangiocarcinoma Narrative/Plan: - Has not begun treatment due to rapid decline performance and renal failure, undergoing dialysis and will re-evalaute Current Visit: Yes Status: Acute Priority: High Code(s): C22.1 - INTRAHEPATIC BILE DUCT CARCINOMA SNOMED Code(s): 496569795 (2) Renal failure Narrative/Plan: Day 3 of Dialysis Current Visit: Yes Status: Acute Priority: High Code(s): N19 - UNSPECIFIED KIDNEY FAILURE SNOMED Code(s): 71852190 (3) Acute respiratory failure with hypoxia Current Visit: Yes Status: Acute Priority: High Code(s): J96.01 - ACUTE RESPIRATORY FAILURE WITH HYPOXIA SNOMED Code(s): 23904241 Plan: Continue on dialysis and daily monitoring of bloodwork Family at bedside and discussed current updates withthem Doctor attests: I performed a history and physical examination of this patient, developed impression and plan of care, discussed with dictator. I agree with dictators note, documented as a scribe.
[2021-08-30] MEDS: CALCIUM CARBONATE 500 MG CHEWABLE PO PRN ×2 (00:23→05:27)
[2021-08-30] MEDS: ONDANSETRON 4 MG/2 ML VIAL IVP PRN (05:27)
[2021-08-30] MEDS: SYMBICORT 160-4.5 MCG INHALER INHALATION SCH ×2 (07:29→20:07)
[2021-08-30] MEDS: IPRATROPIUM-ALBUTEROL 3 ML NEB INHALATION SCH ×4 (07:29→20:07)
[2021-08-30 09:15] LABS: Basophils # (A) 0.07 X 10*3/uL (0.00-0.10); Basophils % (A) 0.2 %; Eosinophils # (A) 0.01 X 10*3/uL (0.04-0.35); Eosinophils % (A) 0 %; HCT 34.4 % (39.6-50.0); HGB 10.7 g/dL (13.0-17.0); Immature Grans, Automated 1.2 %; Lymphocytes # (A) 0.61 X 10*3/uL (0.90-5.00); Lymphocytes % (A) 1.8 %; MCH 31.7 pg (27.0-32.0); MCHC 31.1 g/dL (32.0-37.0); MCV 101.8 fL (80.0-97.0); Mean Platelet Volume 9.3 fL (9.5-12.2); Monocytes # (A) 2.18 X 10*3/uL (0.20-1.00); Monocytes % (A) 6.3 %; NRBC Per 100 WBC 0.4 /100 WBCS (0.0-0.0); Neutrophils # (A) 31.11 X 10*3/uL (1.80-7.70); Neutrophils % (A) 90.5 %; Platelet Count 103 X 10*3/uL (140-440); RBC 3.38 X 10*6/uL (4.40-5.60); RDW 16.9 % (11.5-14.5); WBC 34.41 X 10*3/uL (4.50-10.00)
[2021-08-30] MEDS ORDERED: BENZOCAINE/MENTHOL LOZENG 1 EACH LOZENGE MUCOUS MEM PRN (09:18)
[2021-08-30 09:26] LABS: C Reactive Protein 23.3 mg/dL (0.00-0.80)
[2021-08-30 09:27] LABS: Anion Gap 16.5 mmol/L (10.00-18.00); BUN/Creat Ratio 10.56 Ratio (12.00-20.00); Blood Urea Nitrogen 43.3 mg/dL (9.0-27.0); Calcium 8.7 mg/dL (8.7-10.3); Carbon Dioxide 24.5 mmol/L (20.0-27.5); Non-African American GFR(CKD) 13.8 (60.0-200.0); Potassium 3.8 mmol/L (3.5-5.5)
[2021-08-30] MEDS: SENNOSIDES-DOCUSATE SODIUM 1 EACH TAB PO SCH ×2 (09:27→20:33)
[2021-08-30] MEDS: HEPARIN SODIUM,PORCINE/PF 5,000 UNIT/0.5 ML SYRINGE SQ SCH ×2 (09:27→20:33)
[2021-08-30] MEDS: MIDODRINE 5 MG TAB PO SCH ×3 (09:35→16:29)
[2021-08-30] MEDS: AMPICILLIN-SULBACTAM 3 GM in SODIUM CHLORIDE 0.9% 100 ML IVPB SCH (09:35)
[2021-08-30] MEDS: CALCIUM ACETATE 667 MG TAB PO SCH ×3 (09:35→16:28)
[2021-08-30] MEDS: polyethylene glycoL 3350 17 GM POWD.PACK PO SCH (09:35)
[2021-08-30] MEDS: NYSTATIN 100,000 UNIT/ML SUSP 500,000 UNIT/5 ML CUP PO SCH ×4 (09:36→20:33)
--- NOTE | 2021-08-30 09:36 | P.PN ---
Subjective Patient is seen in follow-up for acute kidney injury. Started on hemodialysis 08/27/2021. Urine output 150 mL in the last 24 hours. Has a Pinto catheter. Hemodynamically stable. On 3 L nasal cannula. Vomited last night. Son present at bedside. Vital signs are stable. General: Resting in bed. Quite lethargic. HEENT: Head exam is unremarkable. On nasal cannula. LUNGS:Breath sounds decreased. HEART: Rate and Rhythm are regular. ABDOMEN: Soft, nontender. EXTREMITITES: Trace edema. Chronic changes noted. Objective - Vital Signs Vital signs: Vital Signs Temp 97.9 F 08/30/21 08:00 Pulse 103 H 08/30/21 08:00 Resp 16 08/30/21 08:00 BP 111/71 08/30/21 08:00 Pulse Ox 99 08/30/21 08:00 Intake & Output 08/29/21 08/30/21 08/30/21 18:59 06:59 18:59 Intake Total 450 Output Total 500 171 Balance -50 -171 Intake: Intake, IV Titration 150 Amount Ampicillin-Sulbactam 3 gm 100 In Sodium Chloride 0.9% 100 ml @ 200 mls/hr IVPB Q24HR [facility] Rx#:[id number] DAPTOmycin 550 mg In 50 Sodium Chloride 0.9% 50 ml @ 100 mls/hr IVPB Q48H [facility] Rx#:[id number] Hemodialysis 300 Output: Urine 150 Stool 1 Emesis 20 Hemodialysis 500 Other: Voiding Method Indwelling Catheter Indwelling Catheter - Labs CBC & Chem 7: 08/30/21 05:41 08/29/21 09:30 Labs: Abnormal Lab Results - Last 24 Hours (Table) 08/29/21 08/29/21 08/30/21 Range/Units 09:30 09:30 05:41 WBC 34.4 H 34.41 H (3.8-10.6) k/uL RBC 3.50 L 3.38 L (4.30-5.90) m/uL Hgb 11.7 L 10.7 L (13.0-17.5) gm/dL Hct 35.1 L 34.4 L (39.0-53.0) % MCV 100.3 H 101.8 H (80.0-100.0) fL MCHC 31.1 L (32.0-37.0) g/dL RDW 16.4 H 16.9 H (11.5-15.5) % Plt Count 142 L 103 L (150-450) k/uL MPV 9.3 L (9.5-12.2) fL Absolute Nucleated RBC 0.13 H (0.00-0.00) X 10*3/uL Immature Gran # 0.43 H (0.00-0.04) X 10*3/uL Neutrophils # 32.0 H 31.11 H (1.3-7.7) k/uL Lymphocytes # 0.5 L 0.61 L (1.0-4.8) k/uL Monocytes # 1.5 H 2.18 H (0-1.0) k/uL Eosinophils # 0.01 L (0.04-0.35) X 10*3/uL NRBC/100 WBC Diff 0.4 H (0.0-0.0) /100 WBCS BUN 72 H (9-20) mg/dL Creatinine 5.19 H (0.66-1.25) mg/dL Glucose 117 H (74-99) mg/dL Calcium 8.2 L (8.4-10.2) mg/dL C-Reactive Protein (0.00-0.80) mg/dL 08/30/21 Range/Units 05:41 WBC (3.8-10.6) k/uL RBC (4.30-5.90) m/uL Hgb (13.0-17.5) gm/dL Hct (39.0-53.0) % MCV (80.0-100.0) fL MCHC (32.0-37.0) g/dL RDW (11.5-15.5) % Plt Count (150-450) k/uL MPV (9.5-12.2) fL Absolute Nucleated RBC (0.00-0.00) X 10*3/uL Immature Gran # (0.00-0.04) X 10*3/uL Neutrophils # (1.3-7.7) k/uL Lymphocytes # (1.0-4.8) k/uL Monocytes # (0-1.0) k/uL Eosinophils # (0.04-0.35) X 10*3/uL NRBC/100 WBC Diff (0.0-0.0) /100 WBCS BUN (9-20) mg/dL Creatinine (0.66-1.25) mg/dL Glucose (74-99) mg/dL Calcium (8.4-10.2) mg/dL C-Reactive Protein 23.30 H (0.00-0.80) mg/dL Microbiology - Last 24 Hours (Table) 08/25/21 22:20 Blood Culture - Preliminary Blood No Growth after 96 hours 08/25/21 22:07 Blood Culture - Preliminary Blood No Growth after 96 hours 08/28/21 04:49 Blood Culture Gram Stain - Preliminary Blood Blood Culture - Preliminary Staphylococcus epidermidis Assessment and Plan Plan: Assessment: 1. Acute kidney injury secondary to ATN secondary to hypotension/infection. Baseline creatinine near 1 from June 2021. Creatinine over 7 on admission with no improvement. Now oliguric. No hydronephrosis noted on kidney ultrasound. 2. Hyperkalemia secondary to acute kidney injury. Improved postdialysis. 3. Hypervolemic hyponatremia. Better. 4. Metabolic acidosis secondary to acute kidney injury. Status post bicarb drip. Improved postdialysis. 5. Cholangiocarcinoma the biliary duct. Recent intervention done at [facility] in June 2021. Oncology following. 6. Hyperphosphatemia secondary to acute kidney injury. On PhosLo. 7. Staph epi bacteremia. On IV antibiotics. Infectious disease following. Plan: Plan for hemodialysis tomorrow. Maintain Pinto. Strict is and os. Continue dialysis for now as a supportive measure. However if no further treatment planned for the underlying malignancy, then comfort measures should be considered. This was also discussed with the son present at bedside. He met with hospice yesterday. Continue to monitor for renal recovery as well. Prognosis guarded.
[2021-08-30] MEDS: PANTOPRAZOLE 40 MG/10 ML VIAL IVP SCH ×2 (09:39→20:33)
--- NOTE | 2021-08-30 10:31 | P.PN ---
Subjective Progress Note Date: 08/29/21 Patient is a 71-year-old male with a known history of COPD, hypertension, obstructive jaundice, previous history of smoking and recently diagnosed with liver cancer presents to ER with complaints of with complaints of increased shortness of breath and cough. Denies any complaints of chest pain. No fever no chills. Patient is also complaining of abdominal distention and increased recurved and bilateral worsening leg swelling and also yellowish discoloration. Patient was recently admitted to hospital in due to acute COPD exacerbation and was discharged on 06/15/2021. Patient also recently diagnosed with liver cancer and was recently seen at [facility] for biliary stent placement for obstructive jaundice. Patient was seen by oncology as well. Laboratory data showed AST 43 ALT 34 alk phos 201 and bilirubin level is 3.7 on this admission. Other laboratory data showed sodium 125 potassium 6.0 chloride 95 bicarbonate 14 BUN 114 and creatinine 7.2 WBC 21.7 hemoglobin 12.3 and platelets 244 . proBNP is 944 and albumin 3.4 Chest x-ray showed no acute cardiopulmonary process. COPD changes. EKG showed nonspecific ST-T wave changes. Patient was given calcium gluconate, D50 and insulin due to hyperkalemia. Potassium level is trending down. Patient is being continued on normal saline. A Pinto cath was placed. 08/27/2021 Patient is currently sitting in the chair. Seems to be more lethargic and confused today. Patient does have very minimal urine output NG tube fluid overload and worsening creatinine level patient is being started on dialysis. Vascular surgery was consulted for dialysis catheter access. Otherwise patient still having significant leukocytosis and is being continued on IV antibiotics for possible abdominal source versus pneumonia. ID will will be consulted. Patient does have history of liver mass and jaundice with possible primary cholangiocarcinoma. Oncology is on board. Patient is supposed to begin his first chemotherapy this week are currently on hold. Laboratory showed WBC 36.7 hemoglobin 12.1 and platelets 234 Sodium 130 potassium 5.9 chloride 89 BUN 129 creatinine 7.9 phosphorus 11.4 and procalcitonin level is 0.82. 08/28/2021 Patient is currently resting in bed. Seems lethargic and drowsy. Patient was started on hemodialysis yesterday with ultrafiltration of 1.5 L. Still having bilateral leg swelling and abdominal distention, slight improvement from yesterday. Patient is being continued antibiotics in the form of Unasyn. Cultures have been negative. Urinalysis showed large leukocyte esterase with elevated RBCs and WBCs. Laboratory showed WBC count improved to 26.6, hemoglobin 10.6 and platelets 148 sodium 135 potassium 5.1 chloride 96 bicarb is 21.1 BUN 86.20 creatinine improved to 6.3. Nephrology and pulmonary and ID is on board. Patient was complaining of pain and was given Dilaudid 0.5 mg x 1 but became very lethargic and unarousable after that. Was given a dose of Narcan. Discussed with family at bedside in detail. 08/29/2021 Patient is more awake and alert today. Feels extremely weak otherwise. Patient is being continued on hemodialysis. Bilateral leg swelling is much improved. Does have very minimal urine output. Patient is able to drink water and tolerate oral diet today. No cough or sputum production. Patient has been afebrile. Currently being continued on antibiotics in the form of Unasyn and daptomycin was added. Blood cultures positive for gram-positive cocci turned out to be staph epidermidis. Laboratory showed WBC count 34.44, hemoglobin 11.7 and platelets 142 BUN 72 and creatinine went down to 5.18. Patient has been afebrile. Pulmonary, ID, oncology and nephrology is on board. Complete review of systems could not be obtained from the patient. Current medications reviewed. Objective - Vital Signs Vital signs: Vital Signs Temp 97.8 F 08/29/21 08:00 Pulse 85 08/29/21 09:24 Resp 16 08/29/21 08:28 BP 103/65 08/29/21 08:00 Pulse Ox 96 08/29/21 09:12 Intake & Output 08/28/21 08/29/21 08/29/21 18:59 06:59 18:59 Intake Total 300 Output Total 1330 70 Balance -1030 -70 Intake: Hemodialysis 300 Output: Urine 30 50 Emesis 20 Hemodialysis 1300 Other: Voiding Method Indwelling Catheter Indwelling Catheter Indwelling Catheter - Exam PHYSICAL EXAMINATION: Patient is lying in the bed comfortably, no acute distress, awake alert and oriented.. HEENT: Normocephalic. Neck is supple. Pupils reactive. Nostrils clear. Oral cavity is moist. Neck reveals no JVD, carotid bruits, or thyromegaly. CHEST EXAMINATION: Trachea is central. Symmetrical expansion. Bibasilar diminished sounds. No wheezing. Lung hernández clear to auscultation and percussion. CARDIAC: Normal S1, S2 with no gallops. No murmurs ABDOMEN: Soft. Bowel sounds present. Distended with ascites. Nontender.. No organomegaly. No abdominal bruits. Extremities: Bilateral lower extremity 3+ edema. No clubbing or cyanosis Neurologically awake, alert, oriented x2-3 with well-coordinated movements. No gross focal deficits noted Skin: No rash or skin lesions. Psychiatric: Coperative. Nonsuicidal Musculoskeletal: No joint swelling or deformity. Normal range of motion. - Labs CBC & Chem 7: 08/30/21 05:41 08/30/21 05:41 Labs: Abnormal Lab Results - Last 24 Hours (Table) 08/29/21 08/29/21 Range/Units 09:30 09:30 WBC 34.4 H (3.8-10.6) k/uL RBC 3.50 L (4.30-5.90) m/uL Hgb 11.7 L (13.0-17.5) gm/dL Hct 35.1 L (39.0-53.0) % MCV 100.3 H (80.0-100.0) fL RDW 16.4 H (11.5-15.5) % Plt Count 142 L (150-450) k/uL Neutrophils # 32.0 H (1.3-7.7) k/uL Lymphocytes # 0.5 L (1.0-4.8) k/uL Monocytes # 1.5 H (0-1.0) k/uL BUN 72 H (9-20) mg/dL Creatinine 5.19 H (0.66-1.25) mg/dL Glucose 117 H (74-99) mg/dL Calcium 8.2 L (8.4-10.2) mg/dL Microbiology - Last 24 Hours (Table) 08/28/21 04:49 Blood Culture Gram Stain - Preliminary Blood 08/28/21 04:49 Blood Culture - Final Blood 08/25/21 22:07 Blood Culture - Preliminary Blood No Growth after 72 hours 08/25/21 22:20 Blood Culture - Preliminary Blood No Growth after 72 hours Assessment and Plan Assessment: Acute kidney injury possible ATN and hepatorenal. Creatinine 7.2 on admission. Previous baseline creatinine within normal limits.Patient was initiated on hemodialysis on 08/27/2021 Hyperkalemia secondary to above. Resolved. Metabolic acidosis secondary acute kidney injury Significant leukocytosis likely due to UTI and possible abdominal source of infection Obstructive jaundice with underlying malignancy in the hepatic, pancreatobiliary system status post biliary stent placement at [facility].Primary cholangiocarcinoma Ascites and bilateral lower extremity edema COPD not in exacerbation Hypertension Hypervolemic hyponatremia DVT prophylaxis with heparin subcu Plan: Patient was started hemodialysis with ultrafiltration of 1.5 L. patient was initiated on hemodialysis on 08/27/2021. Will be continued antibiotics in the form of Unasyn. Blood cultures growing gram-positive cocci. Daptomycin was added.. Continue to monitor renal function. Patient is non-oliguric. Encourage oral intake. Nephrology, oncology and pulmonary is on board. Prognosis poor at this time. Time with Patient: Greater than 30
--- NOTE | 2021-08-30 14:30 | P.CONS ---
History of Present Illness - Reason for Consult Consult date: 08/30/21 Nausea and vomiting Requesting physician: Ruthie Villalobos - Chief Complaint shortness of breath, COPD - History of Present Illness this is 71-year-old male with multiple comorbidities including COPD who presented to the emergency department on 08/25/2021for shortness of breath and dyspnea on exertion. He was admitted for advanced COPD. While hospitalized he has established acute kidney injury and underwent a temporary hemodialysis catheter placed. Over the last couple days apparently the patient had been having some vomiting 2-3 times a day. Patient son is at the bedside and states his dad has advanced COPD and coughs a lot, he is been bringing up some phlegm and sputum. He is also being treated for oral matt. He is currently on 2 antibiotics, IV Unasyn and daptomycin. He states he has acid reflux and feels like something is burning as well as sore throat. He denies any nausea, abdominal pain or diarrhea. He denies any history of peptic ulcer disease or any form or endoscopic evaluation. Gastrenterolgy was consulted for vomiting. Review of Systems REVIEW OF SYSTEMS: CARDIOPULMONARY: No chest pain. enhanced shortness of breath, cough. Gastrointestinal: no abdominal pain. Some heartburn. Vomiting, no nausea. Vomiting usually occurs after coughing spell. No hematemesis, coffee-ground emesis. No rectal bleeding, or melena. GENITOURINARY: No dysuria or hematuria. MUSCULOSKELETAL: Reports normal range of motion., Joint pain. SKIN: No rashes. No jaundice. ENDOCRINE: No chills, fevers. No excessive weight gain or loss. No polydipsia or polyuria. PSYCHIATRIC: Unremarkable. NEUROLOGY: No change in mental status. Denies dizziness, headache. ENT: Vision unremarkable. CONSTITUTIONAL: No recent weight loss. No fever, chills, night sweats. Past Medical History Past Medical History: COPD, Hypertension, Respiratory Disorder Additional Past Medical History / Comment(s): HX RHEUMATIC FEVER AGE 8-NO PROBLEMS. obstructive jaundice History of Any Multi-Drug Resistant Organisms: None Reported Past Surgical History: Heart Catheterization Additional Past Surgical History / Comment(s): Bilat cataracts, stents in pancreas. Past Anesthesia/Blood Transfusion Reactions: No Reported Reaction Past Psychological History: No Psychological Hx Reported Additional Psychological History / Comment(s): Pt has his brother living with him. Pt is independent. He has a nebulizer. Smoking Status: Former smoker Past Alcohol Use History: None Reported Additional Past Alcohol Use History / Comment(s): Pt started smoking in 1963 and quit in 2011. He states he used to drink few beers/ day but has not had one in 4 months Past Drug Use History: None Reported - Past Family History Father Family Medical History: Cancer Additional Family Medical History / Comment(s): liver cancer-pt did not speak to father much. Mother Family Medical History: Cancer Additional Family Medical History / Comment(s): Lung cancer Medications and Allergies Home Medications Medication Instructions Recorded Confirmed Type Tiotropium 18 Mcg/Puff [Spiriva] 1 cap INHALATION RT-DAILY 11/28/13 08/25/21 History Budesonide-Formot 160-4.5 Mcg 2 puff INHALATION RT-BID 12/29/13 08/25/21 History [Symbicort 160-4.5 Mcg Inhaler] Furosemide [Lasix] 20 mg PO DAILY 08/25/21 08/25/21 History Levofloxacin [Levaquin] 500 mg PO DAILY 08/25/21 08/25/21 History Allergies Allergy/AdvReac Type Severity Reaction Status Date / Time No Known Allergies Allergy Verified 08/25/21 21:07 Physical Exam Vitals: Vital Signs Temp Pulse Pulse Resp BP Pulse Ox 08/30/21 08:00 97.9 F 103 H 16 111/71 99 08/30/21 07:39 84 18 08/30/21 07:29 84 20 94 L 08/30/21 01:49 98.1 F 100 20 107/68 100 08/29/21 20:10 106 H 16 08/29/21 20:00 97.7 F 106 H 16 110/69 100 08/29/21 19:13 112 H 08/29/21 19:05 110 H 08/29/21 14:00 98.7 F 110 H 14 101/65 96 08/29/21 12:59 97.8 F 105 H 20 105/62 08/29/21 12:34 85 08/29/21 12:23 89 08/29/21 09:24 85 08/29/21 09:12 85 96 Intake and Output 08/29/21 08/30/21 08/30/21 22:59 06:59 14:59 Intake Total 150 Output Total 70 101 Balance 80 -101 Intake: Intake, IV Titration 150 Amount Ampicillin-Sulbactam 3 gm 100 In Sodium Chloride 0.9% 100 ml @ 200 mls/hr IVPB Q24HR [facility] Rx#:[id number] DAPTOmycin 550 mg In 50 Sodium Chloride 0.9% 50 ml @ 100 mls/hr IVPB Q48H [facility] Rx#:[id number] Output: Urine 50 100 Stool 1 Emesis 20 Other: Voiding Method Indwelling Catheter General appearance: The patient is alert, oriented, appears in no acute distress. Obese. HET: Head is normocephalic and atraumatic. Conjunctiva pink. Sclera anicteric. Oral thrush noted. Neck: Supple without lymphadenopathy. Trachea midline. Heart: S1 S2. Regular rate and rhythm. Lungs: Diminished with expiratory wheezes. Abdomen: Soft, nontender, nondistended with bowel sounds. No guarding or rigidity. Skin: No rashes. No jaundice. Extremities: Normal skin color and turgor. No pedal edema. Neurological: No focal deficits. Alert and oriented x3. Results CBC & Chem 7: 08/30/21 05:41 08/30/21 05:41 Labs: Abnormal Lab Results - Last 24 Hours (Table) 08/29/21 08/29/21 Range/Units 09:30 09:30 WBC 34.4 H (3.8-10.6) k/uL RBC 3.50 L (4.30-5.90) m/uL Hgb 11.7 L (13.0-17.5) gm/dL Hct 35.1 L (39.0-53.0) % MCV 100.3 H (80.0-100.0) fL RDW 16.4 H (11.5-15.5) % Plt Count 142 L (150-450) k/uL Neutrophils # 32.0 H (1.3-7.7) k/uL Lymphocytes # 0.5 L (1.0-4.8) k/uL Monocytes # 1.5 H (0-1.0) k/uL BUN 72 H (9-20) mg/dL Creatinine 5.19 H (0.66-1.25) mg/dL Glucose 117 H (74-99) mg/dL Calcium 8.2 L (8.4-10.2) mg/dL Microbiology - Last 24 Hours (Table) 08/25/21 22:20 Blood Culture - Preliminary Blood No Growth after 96 hours 08/25/21 22:07 Blood Culture - Preliminary Blood No Growth after 96 hours 08/28/21 04:49 Blood Culture Gram Stain - Preliminary Blood Blood Culture - Preliminary Staphylococcus epidermidis Assessment and Plan (1) Vomiting Narrative/Plan: 71-year-old male with multiple comorbidities including cholangiocarcinoma, and severe COPD was hospitalized for increased shortness of breath and dyspnea. The patient has been coughing significantly he is on 3 L of nasal cannula. Over last 2 days duration he had episodes of 2-3 times a day of vomiting. Mostly after coughing. Today he states he is feeling better and he is tolerating his diet. He does state that he gets heartburn. He denies any nausea, no abdominal pain, and denies any hematemesis. He is on antibiotics for leukocytosis. he has been recently started on hemodialysis as well. Likely he etiology for vomiting is related to advanced COPD, possibility of antibiotic therapy as well. Patient does not have any nausea, abdominal pain, or diarrhea likely not infectious. Also patient states symptoms are improving and is eating today. Current Visit: Yes Status: Acute Code(s): R11.10 - VOMITING, UNSPECIFIED SNOMED Code(s): 356811250 (2) COPD (chronic obstructive pulmonary disease) Current Visit: Yes Status: Acute Code(s): J44.9 - CHRONIC OBSTRUCTIVE PULMONARY DISEASE, UNSPECIFIED SNOMED Code(s): 37596095 (3) Cholangiocarcinoma Current Visit: Yes Status: Acute Priority: High Code(s): C22.1 - INTRAHEPATIC BILE DUCT CARCINOMA SNOMED Code(s): 724992156 Plan: 1. Continue symptomatic and supportive care 2. Protonix 40 mg twice a day added 3. Cepacol lozenges added for sore throat 4. Continue antiemetics as needed 5. No plans on endoscopic evaluation. Symptoms have improved. Likely due to underlying COPD. Thank you for this consultation, we will sign off at this time. Dr. Lorrie Fields I agree with the dictator's note, documented as a scribe by Debi Case.
[2021-08-30] MEDS ORDERED: MIDODRINE 5 MG TAB PO ONE (22:45)
--- NOTE | 2021-08-30 22:59 | P.PN ---
Subjective Progress Note Date: 08/30/21 Patient is a 71-year-old male with a known history of COPD, hypertension, obstructive jaundice, previous history of smoking and recently diagnosed with liver cancer presents to ER with complaints of with complaints of increased shortness of breath and cough. Denies any complaints of chest pain. No fever no chills. Patient is also complaining of abdominal distention and increased recurved and bilateral worsening leg swelling and also yellowish discoloration. Patient was recently admitted to hospital in due to acute COPD exacerbation and was discharged on 06/15/2021. Patient also recently diagnosed with liver cancer and was recently seen at [facility] for biliary stent placement for obstructive jaundice. Patient was seen by oncology as well. Laboratory data showed AST 43 ALT 34 alk phos 201 and bilirubin level is 3.7 on this admission. Other laboratory data showed sodium 125 potassium 6.0 chloride 95 bicarbonate 14 BUN 114 and creatinine 7.2 WBC 21.7 hemoglobin 12.3 and platelets 244 . proBNP is 944 and albumin 3.4 Chest x-ray showed no acute cardiopulmonary process. COPD changes. EKG showed nonspecific ST-T wave changes. Patient was given calcium gluconate, D50 and insulin due to hyperkalemia. Potassium level is trending down. Patient is being continued on normal saline. A Pinto cath was placed. 08/27/2021 Patient is currently sitting in the chair. Seems to be more lethargic and confused today. Patient does have very minimal urine output NG tube fluid overload and worsening creatinine level patient is being started on dialysis. Vascular surgery was consulted for dialysis catheter access. Otherwise patient still having significant leukocytosis and is being continued on IV antibiotics for possible abdominal source versus pneumonia. ID will will be consulted. Patient does have history of liver mass and jaundice with possible primary cholangiocarcinoma. Oncology is on board. Patient is supposed to begin his first chemotherapy this week are currently on hold. Laboratory showed WBC 36.7 hemoglobin 12.1 and platelets 234 Sodium 130 potassium 5.9 chloride 89 BUN 129 creatinine 7.9 phosphorus 11.4 and procalcitonin level is 0.82. 08/28/2021 Patient is currently resting in bed. Seems lethargic and drowsy. Patient was started on hemodialysis yesterday with ultrafiltration of 1.5 L. Still having bilateral leg swelling and abdominal distention, slight improvement from yesterday. Patient is being continued antibiotics in the form of Unasyn. Cultures have been negative. Urinalysis showed large leukocyte esterase with elevated RBCs and WBCs. Laboratory showed WBC count improved to 26.6, hemoglobin 10.6 and platelets 148 sodium 135 potassium 5.1 chloride 96 bicarb is 21.1 BUN 86.20 creatinine improved to 6.3. Nephrology and pulmonary and ID is on board. Patient was complaining of pain and was given Dilaudid 0.5 mg x 1 but became very lethargic and unarousable after that. Was given a dose of Narcan. Discussed with family at bedside in detail. 08/29/2021 Patient is more awake and alert today. Feels extremely weak otherwise. Patient is being continued on hemodialysis. Bilateral leg swelling is much improved. Does have very minimal urine output. Patient is able to drink water and tolerate oral diet today. No cough or sputum production. Patient has been afebrile. Currently being continued on antibiotics in the form of Unasyn and daptomycin was added. Blood cultures positive for gram-positive cocci turned out to be staph epidermidis. Laboratory showed WBC count 34.44, hemoglobin 11.7 and platelets 142 BUN 72 and creatinine went down to 5.18. Patient has been afebrile. Pulmonary, ID, oncology and nephrology is on board. 08/30/2021 Patient is currently lying in the bed. Awake alert and oriented but lethargic and weak. Patient had hemodialysis yesterday. Did have very minimal urine output. No complaints of cough or sputum production. Pain is controlled with Tylenol as needed. Patient has been afebrile. Laboratory showed significant leukocytosis with WBC 34.41 hemoglobin 10.7 and platelets 103 Sodium 144 potassium 3.8 BUN 43.3 and creatinine 4.1 CRP 23.3. Patient is being continued antibiotics in the form of Unasyn and daptomycin. Blood cultures growing staph epidermidis. Patient is being followed by nephrology, ID and oncology. Discussed with the family at bedside in detail. Complete review of systems could not be obtained from the patient except as above. Current medications reviewed. Objective - Vital Signs Vital signs: Vital Signs Temp 97.9 F 08/30/21 08:00 Pulse 103 H 08/30/21 08:00 Resp 16 08/30/21 08:00 BP 111/71 08/30/21 08:00 Pulse Ox 99 08/30/21 08:00 Intake & Output 08/29/21 08/30/21 08/30/21 18:59 06:59 18:59 Intake Total 450 Output Total 500 171 Balance -50 -171 Intake: Intake, IV Titration 150 Amount Ampicillin-Sulbactam 3 gm 100 In Sodium Chloride 0.9% 100 ml @ 200 mls/hr IVPB Q24HR [facility] Rx#:[id number] DAPTOmycin 550 mg In 50 Sodium Chloride 0.9% 50 ml @ 100 mls/hr IVPB Q48H [facility] Rx#:[id number] Hemodialysis 300 Output: Urine 150 Stool 1 Emesis 20 Hemodialysis 500 Other: Voiding Method Indwelling Catheter Indwelling Catheter - Exam PHYSICAL EXAMINATION: Patient is lying in the bed comfortably, no acute distress, awake alert and oriented.. HEENT: Normocephalic. Neck is supple. Pupils reactive. Nostrils clear. Oral cavity is moist. Neck reveals no JVD, carotid bruits, or thyromegaly. CHEST EXAMINATION: Trachea is central. Symmetrical expansion. Bibasilar diminished sounds. No wheezing. Lung hernández clear to auscultation and percussion. CARDIAC: Normal S1, S2 with no gallops. No murmurs ABDOMEN: Soft. Bowel sounds present. Distended with ascites. Nontender.. No organomegaly. No abdominal bruits. Extremities: Bilateral lower extremity 3+ edema. No clubbing or cyanosis Neurologically awake, alert, oriented x2-3 with well-coordinated movements. No gross focal deficits noted Skin: No rash or skin lesions. Psychiatric: Coperative. Nonsuicidal Musculoskeletal: No joint swelling or deformity. Normal range of motion. - Labs CBC & Chem 7: 08/30/21 05:41 08/30/21 05:41 Labs: Abnormal Lab Results - Last 24 Hours (Table) 08/29/21 08/29/21 08/30/21 Range/Units 09:30 09:30 05:41 WBC 34.4 H 34.41 H (3.8-10.6) k/uL RBC 3.50 L 3.38 L (4.30-5.90) m/uL Hgb 11.7 L 10.7 L (13.0-17.5) gm/dL Hct 35.1 L 34.4 L (39.0-53.0) % MCV 100.3 H 101.8 H (80.0-100.0) fL MCHC 31.1 L (32.0-37.0) g/dL RDW 16.4 H 16.9 H (11.5-15.5) % Plt Count 142 L 103 L (150-450) k/uL MPV 9.3 L (9.5-12.2) fL Absolute Nucleated RBC 0.13 H (0.00-0.00) X 10*3/uL Immature Gran # 0.43 H (0.00-0.04) X 10*3/uL Neutrophils # 32.0 H 31.11 H (1.3-7.7) k/uL Lymphocytes # 0.5 L 0.61 L (1.0-4.8) k/uL Monocytes # 1.5 H 2.18 H (0-1.0) k/uL Eosinophils # 0.01 L (0.04-0.35) X 10*3/uL NRBC/100 WBC Diff 0.4 H (0.0-0.0) /100 WBCS BUN 72 H (9-20) mg/dL Creatinine 5.19 H (0.66-1.25) mg/dL Est GFR (CKD-EPI)AfAm (60.0-200.0) Est GFR (CKD-EPI)NonAf (60.0-200.0) BUN/Creatinine Ratio (12.00-20.00) Ratio Glucose 117 H (74-99) mg/dL Calcium 8.2 L (8.4-10.2) mg/dL C-Reactive Protein (0.00-0.80) mg/dL 08/30/21 Range/Units 05:41 WBC (3.8-10.6) k/uL RBC (4.30-5.90) m/uL Hgb (13.0-17.5) gm/dL Hct (39.0-53.0) % MCV (80.0-100.0) fL MCHC (32.0-37.0) g/dL RDW (11.5-15.5) % Plt Count (150-450) k/uL MPV (9.5-12.2) fL Absolute Nucleated RBC (0.00-0.00) X 10*3/uL Immature Gran # (0.00-0.04) X 10*3/uL Neutrophils # (1.3-7.7) k/uL Lymphocytes # (1.0-4.8) k/uL Monocytes # (0-1.0) k/uL Eosinophils # (0.04-0.35) X 10*3/uL NRBC/100 WBC Diff (0.0-0.0) /100 WBCS BUN 43.3 H (9-20) mg/dL Creatinine 4.1 H (0.66-1.25) mg/dL Est GFR (CKD-EPI)AfAm 16.0 L (60.0-200.0) Est GFR (CKD-EPI)NonAf 13.8 L (60.0-200.0) BUN/Creatinine Ratio 10.56 L (12.00-20.00) Ratio Glucose 122 H (74-99) mg/dL Calcium (8.4-10.2) mg/dL C-Reactive Protein 23.30 H (0.00-0.80) mg/dL Microbiology - Last 24 Hours (Table) 08/25/21 22:20 Blood Culture - Preliminary Blood No Growth after 96 hours 08/25/21 22:07 Blood Culture - Preliminary Blood No Growth after 96 hours 08/28/21 04:49 Blood Culture Gram Stain - Preliminary Blood Blood Culture - Preliminary Staphylococcus epidermidis Assessment and Plan Assessment: Acute kidney injury possible ATN and hepatorenal. Creatinine 7.2 on admission. Previous baseline creatinine within normal limits.Patient was initiated on hemodialysis on 08/27/2021 Hyperkalemia secondary to above. Resolved. Metabolic acidosis secondary acute kidney injury Significant leukocytosis likely due to UTI and possible abdominal source of infection Obstructive jaundice with underlying malignancy in the hepatic, pancreatobiliary system status post biliary stent placement at [facility].Primary cholangiocarcinoma Ascites and bilateral lower extremity edema COPD not in exacerbation Hypertension Hypervolemic hyponatremia DVT prophylaxis heparin subcu on hold due to Thrombocytopenia. Plan: Patient was started hemodialysis with ultrafiltration of 1.5 L. patient was initiated on hemodialysis on 08/27/2021.Next hemodialysis tomorrow. Will be continued antibiotics in the form of Unasyn. Blood cultures growing gram-positive cocci. Daptomycin was added.. Continue to monitor renal function. Patient is non-oliguric. Encourage oral intake. Nephrology, oncology and pulmonary is on board. Prognosis poor at this time. Time with Patient: Greater than 30
[2021-08-31 05:32] LABS: Partial Thromboplastin Time 28.7 sec (22.0-30.0); Prothrombin Time 11.3 sec (9.0-12.0)
[2021-08-31 07:35] VITALS: RESP 19; TEMP 98.5
[2021-08-31] MEDS: AMPICILLIN-SULBACTAM 3 GM in SODIUM CHLORIDE 0.9% 100 ML IVPB SCH (08:19)
[2021-08-31] MEDS: SENNOSIDES-DOCUSATE SODIUM 1 EACH TAB PO SCH (08:19)
[2021-08-31] MEDS: CALCIUM ACETATE 667 MG TAB PO SCH ×2 (08:19→11:37)
[2021-08-31] MEDS: polyethylene glycoL 3350 17 GM POWD.PACK PO SCH (08:19)
[2021-08-31] MEDS: MIDODRINE 5 MG TAB PO SCH ×2 (08:19→11:37)
[2021-08-31] MEDS: NYSTATIN 100,000 UNIT/ML SUSP 500,000 UNIT/5 ML CUP PO SCH ×2 (08:19→11:39)
[2021-08-31] MEDS: IPRATROPIUM-ALBUTEROL 3 ML NEB INHALATION SCH ×2 (08:40→12:42)
[2021-08-31] MEDS: SYMBICORT 160-4.5 MCG INHALER INHALATION SCH (08:41)
[2021-08-31] MEDS ORDERED: PANTOPRAZOLE 40 MG TABLET PO SCH (09:00)
[2021-08-31 09:37] VITALS: PULSE 108
--- NOTE | 2021-08-31 09:55 | P.PN ---
Subjective Patient is seen in follow-up for acute kidney injury. Started on hemodialysis 08/27/2021. Oliguric. Has a Pinto catheter. On 3 L nasal cannula. Oral intake poor. Son present at bedside. Vital signs are stable. General: Resting in bed. Quite lethargic. HEENT: Head exam is unremarkable. On nasal cannula. LUNGS: Breath sounds decreased. HEART: Tachycardic. ABDOMEN: Soft, nontender. EXTREMITITES: Trace edema. Chronic changes noted. Objective - Vital Signs Vital signs: Vital Signs Temp 98.5 F 08/31/21 07:35 Pulse 102 H 08/31/21 08:57 Resp 19 08/31/21 08:00 BP 106/69 08/31/21 07:35 Pulse Ox 94 L 08/31/21 07:35 Intake & Output 08/30/21 08/31/21 08/31/21 18:59 06:59 18:59 Output Total 101 Balance -101 Weight 92 kg Output: Urine 100 Stool 1 Other: Voiding Method Indwelling Catheter Indwelling Catheter Indwelling Catheter - Labs CBC & Chem 7: 08/30/21 05:41 08/30/21 05:41 Labs: Microbiology - Last 24 Hours (Table) 08/30/21 05:41 Blood Culture - Preliminary Blood No Growth after 24 hours 08/30/21 04:30 Gram Stain - Preliminary Sputum Sputum Culture - Preliminary 08/25/21 22:20 Blood Culture - Preliminary Blood No Growth after 120 hours 08/25/21 22:07 Blood Culture - Preliminary Blood No Growth after 120 hours 08/28/21 04:49 Blood Culture Gram Stain - Preliminary Blood Blood Culture - Preliminary Staphylococcus epidermidis 08/29/21 09:30 Blood Culture - Preliminary Blood No Growth after 24 hours Assessment and Plan Plan: Assessment: 1. Acute kidney injury secondary to ATN secondary to hypotension/infection. Baseline creatinine near 1 from June 2021. Creatinine over 7 on admission with no improvement. Oliguric. No hydronephrosis noted on kidney ultrasound. 2. Hyperkalemia secondary to acute kidney injury. Improved postdialysis. 3. Hypervolemic hyponatremia. Better. 4. Metabolic acidosis secondary to acute kidney injury. Status post bicarb drip. Improved postdialysis. 5. Cholangiocarcinoma the biliary duct. Recent intervention done at [facility] in June 2021. Oncology following. 6. Hyperphosphatemia secondary to acute kidney injury. On PhosLo. 7. Staph epi bacteremia. On IV antibiotics. Infectious disease following. Plan: Currently seen while undergoing hemodialysis. Patient has decided to proceed with hospice. Discontinue dialysis catheter prior to discharge.
[2021-08-31 10:24] LABS: Basophils # (A) 0.08 X 10*3/uL (0.00-0.10); Basophils % (A) 0.2 %; Eosinophils % (A) 0.3 %; HCT 34.3 % (39.6-50.0); HGB 10.8 g/dL (13.0-17.0); Immature Grans, Automated 1.8 %; Lymphocytes # (A) 0.57 X 10*3/uL (0.90-5.00); Lymphocytes % (A) 1.6 %; MCH 32.3 pg (27.0-32.0); MCHC 31.5 g/dL (32.0-37.0); MCV 102.7 fL (80.0-97.0); Mean Platelet Volume 9.7 fL (9.5-12.2); Monocytes % (A) 6.2 %; NRBC Per 100 WBC 0.3 /100 WBCS (0.0-0.0); Neutrophils # (A) 32.17 X 10*3/uL (1.80-7.70); Neutrophils % (A) 89.9 %; Platelet Count 89 X 10*3/uL (140-440); RBC 3.34 X 10*6/uL (4.40-5.60); WBC 35.77 X 10*3/uL (4.50-10.00)
--- NOTE | 2021-08-31 12:04 | P.PN ---
Subjective Progress Note Date: 08/31/21 Principal diagnosis: Vomiting, GERD The patient is seen and examined as a follow-up for vomiting. He was admitted with a COPD exacerbation, went into acute kidney failure and had a temporary hemodialysis catheter placed and has been undergoing hemodialysis. Gastroenterology had seen patient for episodes of vomiting for which he states has improved. Likely related to COPD. He is stating that he still having some acid reflux. He was started on Protonix 40 mg twice a day. he denies any vomiting, states he is able to eat. Objective - Vital Signs Vital signs: Vital Signs Temp 98.5 F 08/31/21 07:35 Pulse 102 H 08/31/21 08:57 Resp 19 08/31/21 07:35 BP 106/69 08/31/21 07:35 Pulse Ox 94 L 08/31/21 07:35 Intake & Output 08/30/21 08/31/21 08/31/21 18:59 06:59 18:59 Output Total 101 Balance -101 Weight 92 kg Output: Urine 100 Stool 1 Other: Voiding Method Indwelling Catheter Indwelling Catheter - Exam General appearance: The patient is alert, oriented, appears in no acute distress. HET: Head is normocephalic and atraumatic. Pupils are equal and reactive. Neck: Supple without lymphadenopathy. Trachea midline. No audible carotid bruit. Abdomen: Soft, nontender, nondistended. Extremities: Normal skin color and turgor. Left groin with HD catheter intact. Neurological: No focal deficits. Alert and oriented 3. - Labs CBC & Chem 7: 08/31/21 04:29 08/30/21 05:41 Labs: Abnormal Lab Results - Last 24 Hours (Table) 08/30/21 08/30/21 Range/Units 05:41 05:41 WBC 34.41 H (4.50-10.00) X 10*3/uL RBC 3.38 L (4.40-5.60) X 10*6/uL Hgb 10.7 L (13.0-17.0) g/dL Hct 34.4 L (39.6-50.0) % MCV 101.8 H (80.0-97.0) fL MCHC 31.1 L (32.0-37.0) g/dL RDW 16.9 H (11.5-14.5) % Plt Count 103 L (140-440) X 10*3/uL MPV 9.3 L (9.5-12.2) fL Absolute Nucleated RBC 0.13 H (0.00-0.00) X 10*3/uL Immature Gran # 0.43 H (0.00-0.04) X 10*3/uL Neutrophils # 31.11 H (1.80-7.70) X 10*3/uL Lymphocytes # 0.61 L (0.90-5.00) X 10*3/uL Monocytes # 2.18 H (0.20-1.00) X 10*3/uL Eosinophils # 0.01 L (0.04-0.35) X 10*3/uL NRBC/100 WBC Diff 0.4 H (0.0-0.0) /100 WBCS BUN 43.3 H (9.0-27.0) mg/dL Creatinine 4.1 H (0.6-1.5) mg/dL Est GFR (CKD-EPI)AfAm 16.0 L (60.0-200.0) Est GFR (CKD-EPI)NonAf 13.8 L (60.0-200.0) BUN/Creatinine Ratio 10.56 L (12.00-20.00) Ratio Glucose 122 H (70-110) mg/dL C-Reactive Protein 23.30 H (0.00-0.80) mg/dL Microbiology - Last 24 Hours (Table) 08/30/21 05:41 Blood Culture - Preliminary Blood No Growth after 24 hours 08/30/21 04:30 Gram Stain - Preliminary Sputum Sputum Culture - Preliminary 08/25/21 22:20 Blood Culture - Preliminary Blood No Growth after 120 hours 08/25/21 22:07 Blood Culture - Preliminary Blood No Growth after 120 hours 08/28/21 04:49 Blood Culture Gram Stain - Preliminary Blood Blood Culture - Preliminary Staphylococcus epidermidis 08/29/21 09:30 Blood Culture - Preliminary Blood No Growth after 24 hours Assessment and Plan (1) Vomiting Narrative/Plan: 71-year-old male with multiple comorbidities including cholangiocarcinoma, and severe COPD was hospitalized for increased shortness of breath and dyspnea. The patient has been coughing significantly he is on 3 L of nasal cannula. Over last 2 days duration he had episodes of 2-3 times a day of vomiting. Mostly after coughing. Today he states he is feeling better and he is tolerating his diet. He does state that he gets heartburn. He denies any nausea, no abdominal pain, and denies any hematemesis. He is on antibiotics for leukocytosis. he has been recently started on hemodialysis as well. Likely he etiology for vomiting is related to advanced COPD, possibility of antibiotic therapy as well. Patient does not have any nausea, abdominal pain, or diarrhea likely not infectious. Also patient states symptoms are improving and is eating today. Patient's having no further vomiting, he is continuing to have acid reflux. Will add Maalox Current Visit: Yes Status: Acute Code(s): R11.10 - VOMITING, UNSPECIFIED SNOMED Code(s): 898297370 (2) COPD (chronic obstructive pulmonary disease) Current Visit: Yes Status: Acute Code(s): J44.9 - CHRONIC OBSTRUCTIVE PULMONARY DISEASE, UNSPECIFIED SNOMED Code(s): 70555974 (3) Cholangiocarcinoma Current Visit: Yes Status: Acute Priority: High Code(s): C22.1 - INTRAHEPATIC BILE DUCT CARCINOMA SNOMED Code(s): 802574272 Plan: 1. Continue symptomatic and supportive care 2. Protonix 40 mg twice a day added 3. Cepacol lozenges added for sore throat 4. Continue antiemetics as needed 5. Maalox added for acid reflux Patient and family history sided to consult with hospice and be discharged home with hospice care. Thank you for this consultation, we will sign off at this time. Dr. Lorrie Fields I agree with the dictator's note, documented as a scribe by Debi Case.
[2021-08-31 12:23] LABS: African American GFR (CKD) 12.9 (60.0-200.0); Albumin 2.5 g/dL (3.8-4.9); Albumin/Globulin Ratio 1.14 (1.60-3.17); Anion Gap 15.6 mmol/L (10.00-18.00); BUN/Creat Ratio 11.12 Ratio (12.00-20.00); Blood Urea Nitrogen 54.5 mg/dL (9.0-27.0); Calcium 8.2 mg/dL (8.7-10.3); Carbon Dioxide 20.4 mmol/L (20.0-27.5); Globulin 2.2 g/dL (1.6-3.3); Magnesium 2.5 mg/dL (1.5-2.4); Non-African American GFR(CKD) 11.1 (60.0-200.0); Potassium 4.7 mmol/L (3.5-5.5); Total Bilirubin 1.9 mg/dL (0.30-1.20); Total Protein 4.7 g/dL (6.2-8.2)
[2021-08-31] MEDS ORDERED: MAG HYDROX/AL HYDROX/SIMETH 30 ML CUP PO SCH (13:00)
--- NOTE | 2021-08-31 14:32 | P.PN ---
Subjective Progress Note Date: 08/31/21 Principal diagnosis: Renal and liver failure resting, still very weak Objective - Vital Signs Vital signs: Vital Signs Temp 97.9 F 08/30/21 08:00 Pulse 103 H 08/30/21 11:43 Resp 18 08/30/21 11:43 BP 111/71 08/30/21 08:00 Pulse Ox 99 08/30/21 08:00 Intake & Output 08/29/21 08/30/21 08/30/21 18:59 06:59 18:59 Intake Total 450 Output Total 500 171 Balance -50 -171 Intake: Intake, IV Titration 150 Amount Ampicillin-Sulbactam 3 gm 100 In Sodium Chloride 0.9% 100 ml @ 200 mls/hr IVPB Q24HR [facility] Rx#:[id number] DAPTOmycin 550 mg In 50 Sodium Chloride 0.9% 50 ml @ 100 mls/hr IVPB Q48H [facility] Rx#:[id number] Hemodialysis 300 Output: Urine 150 Stool 1 Emesis 20 Hemodialysis 500 Other: Voiding Method Indwelling Catheter Indwelling Catheter Indwelling Catheter - Exam - Constitutional Constitutional Comment(s): frail, grimacing in pain trying to reposition his backside on the bed General appearance: Present: thin - EENT Eyes: Present: scleral icterus ENT: Present: hearing grossly normal - Respiratory Respiratory: bilateral: diminished - Gastrointestinal General gastrointestinal: Present: normal bowel sounds - Integumentary Integumentary: Present: jaundiced Eccymosis on arms arms and leg - Musculoskeletal Musculoskeletal: Present: generalized weakness - Psychiatric Psychiatric: Present: A&O x's 3, appropriate affect, intact judgment & insight - Labs CBC & Chem 7: 08/31/21 04:29 08/31/21 04:29 Labs: Abnormal Lab Results - Last 24 Hours (Table) 08/30/21 08/30/21 Range/Units 05:41 05:41 WBC 34.41 H (4.50-10.00) X 10*3/uL RBC 3.38 L (4.40-5.60) X 10*6/uL Hgb 10.7 L (13.0-17.0) g/dL Hct 34.4 L (39.6-50.0) % MCV 101.8 H (80.0-97.0) fL MCHC 31.1 L (32.0-37.0) g/dL RDW 16.9 H (11.5-14.5) % Plt Count 103 L (140-440) X 10*3/uL MPV 9.3 L (9.5-12.2) fL Absolute Nucleated RBC 0.13 H (0.00-0.00) X 10*3/uL Immature Gran # 0.43 H (0.00-0.04) X 10*3/uL Neutrophils # 31.11 H (1.80-7.70) X 10*3/uL Lymphocytes # 0.61 L (0.90-5.00) X 10*3/uL Monocytes # 2.18 H (0.20-1.00) X 10*3/uL Eosinophils # 0.01 L (0.04-0.35) X 10*3/uL NRBC/100 WBC Diff 0.4 H (0.0-0.0) /100 WBCS BUN 43.3 H (9.0-27.0) mg/dL Creatinine 4.1 H (0.6-1.5) mg/dL Est GFR (CKD-EPI)AfAm 16.0 L (60.0-200.0) Est GFR (CKD-EPI)NonAf 13.8 L (60.0-200.0) BUN/Creatinine Ratio 10.56 L (12.00-20.00) Ratio Glucose 122 H (70-110) mg/dL C-Reactive Protein 23.30 H (0.00-0.80) mg/dL Microbiology - Last 24 Hours (Table) 08/28/21 04:49 Blood Culture Gram Stain - Preliminary Blood Blood Culture - Preliminary Staphylococcus epidermidis 08/29/21 09:30 Blood Culture - Preliminary Blood No Growth after 24 hours 08/30/21 04:30 Sputum Culture - Preliminary Sputum 08/25/21 22:20 Blood Culture - Preliminary Blood No Growth after 96 hours 08/25/21 22:07 Blood Culture - Preliminary Blood No Growth after 96 hours Assessment and Plan (1) Cholangiocarcinoma Narrative/Plan: - Has not begun treatment due to rapid decline performance and renal failure, undergoing dialysis and will re-evalaute Current Visit: Yes Status: Acute Priority: High Code(s): C22.1 - INTRAHEPATIC BILE DUCT CARCINOMA SNOMED Code(s): 173689024 (2) Renal failure Narrative/Plan: Day 3 of Dialysis Current Visit: Yes Status: Acute Priority: High Code(s): N19 - UNSPECIFIED KIDNEY FAILURE SNOMED Code(s): 79354202 (3) Acute respiratory failure with hypoxia Current Visit: Yes Status: Acute Priority: High Code(s): J96.01 - ACUTE RESPIRATORY FAILURE WITH HYPOXIA SNOMED Code(s): 73714875 Plan: Continue on dialysis and daily monitoring of bloodwork Family at bedside and discussed current updates withthem Doctor attests: I performed a history and physical examination of this patient, developed impression and plan of care, discussed with dictator. I agree with dictators note, documented as a scribe.
--- NOTE | 2021-08-31 15:20 | P.PN ---
Subjective Progress Note Date: 08/29/21 Principal diagnosis: leukocytosis/infection Patient is a 71-year-old male with a past medical history pertinent for COPD history of liver cancer admitted to hospital with shortness of breath this patient evidence of fluid overload diffuse swelling to lower extremity and renal failure, patient also has elevated white count. On today's evaluation that is 08/30/2019, the patient remains to be afebrile, patient is more awake and alert today, patient is breathing comfortably nasal cannula oxygen no vomiting or any diarrhea was reported by the nursing staff Objective - Vital Signs Vital signs: Vital Signs Temp 97.8 F 08/29/21 08:00 Pulse 85 08/29/21 09:24 Resp 16 08/29/21 08:28 BP 103/65 08/29/21 08:00 Pulse Ox 96 08/29/21 09:12 Intake & Output 08/28/21 08/29/21 08/29/21 18:59 06:59 18:59 Intake Total 300 Output Total 1330 70 Balance -1030 -70 Intake: Hemodialysis 300 Output: Urine 30 50 Emesis 20 Hemodialysis 1300 Other: Voiding Method Indwelling Catheter Indwelling Catheter Indwelling Catheter - Exam GENERAL DESCRIPTION: An elderly male lying in bed in no distress RESPIRATORY SYSTEM: Unlabored breathing , decreased breath sounds at bases HEART: S1 S2 regular rate and rhythm , ABDOMEN: Soft , no tenderness EXTREMITIES: Diffuse swelling to his lower extremity and did have superficial ulceration to the bilateral feet with some clear drainage - Labs CBC & Chem 7: 08/31/21 04:29 08/31/21 04:29 Labs: Abnormal Lab Results - Last 24 Hours (Table) 08/28/21 Range/Units 04:49 WBC 26.66 H (4.50-10.00) X 10*3/uL RBC 3.31 L (4.40-5.60) X 10*6/uL Hgb 10.6 L (13.0-17.0) g/dL Hct 32.1 L (39.6-50.0) % RDW 16.6 H (11.5-14.5) % MPV 8.9 L (9.5-12.2) fL Absolute Nucleated RBC 0.04 H (0.00-0.00) X 10*3/uL Immature Gran # 0.80 H (0.00-0.04) X 10*3/uL Neutrophils # 23.42 H (1.80-7.70) X 10*3/uL Lymphocytes # 0.38 L (0.90-5.00) X 10*3/uL Monocytes # 1.99 H (0.20-1.00) X 10*3/uL Eosinophils # 0 L (0.04-0.35) X 10*3/uL NRBC/100 WBC Diff 0.2 H (0.0-0.0) /100 WBCS Microbiology - Last 24 Hours (Table) 08/28/21 04:49 Blood Culture Gram Stain - Preliminary Blood 08/28/21 04:49 Blood Culture - Final Blood 08/25/21 22:07 Blood Culture - Preliminary Blood No Growth after 72 hours 08/25/21 22:20 Blood Culture - Preliminary Blood No Growth after 72 hours Assessment and Plan (1) Leukocytosis Status: Acute Code(s): D72.829 - ELEVATED WHITE BLOOD CELL COUNT, UNSPECIFIED SNOMED Code(s): 799796591 Plan: 1patient with significant elevated white count in this patient presented to hospital with increasing shortness of breath with evidence of fluid overload likely from her renal failure which is currently being investigated and the patient is started on dialysis patient did not have any fever during this admission he did have a recent history of biliary stent placement bilirubin is elevated however liver exams are normal with the source question abdominal versus lower extremity cellulitis. 2patient to continue Unasyn 3 g every 12 hours dose adjusted the kidney function 3local wound care to bilateral foot wound with Aquacel silver dressing to be changed daily 4-patient also with a positive blood culture with gram-positive cocci daptomycin has been added and cultures will be followed Time with Patient: Less than 30
--- NOTE | 2021-08-31 15:22 | P.PN ---
Subjective Progress Note Date: 08/30/21 Principal diagnosis: leukocytosis/infection Patient is a 71-year-old male with a past medical history pertinent for COPD history of liver cancer admitted to hospital with shortness of breath this patient evidence of fluid overload diffuse swelling to lower extremity and renal failure, patient also has elevated white count. On today's evaluation that is 08/30/2019, the patient remains to be afebrile, patient is breathing comfortably on nasal cannula oxygen, the patient denies having any chest pain no worsening cough or sputum production no abdominal pain and pain in lower extremity has decreased in intensity Objective - Vital Signs Vital signs: Vital Signs Temp 97.9 F 08/30/21 08:00 Pulse 103 H 08/30/21 11:43 Resp 18 08/30/21 11:43 BP 111/71 08/30/21 08:00 Pulse Ox 99 08/30/21 08:00 Intake & Output 08/29/21 08/30/21 08/30/21 18:59 06:59 18:59 Intake Total 450 Output Total 500 171 Balance -50 -171 Weight 92 kg Intake: Intake, IV Titration 150 Amount Ampicillin-Sulbactam 3 gm 100 In Sodium Chloride 0.9% 100 ml @ 200 mls/hr IVPB Q24HR [facility] Rx#:[id number] DAPTOmycin 550 mg In 50 Sodium Chloride 0.9% 50 ml @ 100 mls/hr IVPB Q48H [facility] Rx#:[id number] Hemodialysis 300 Output: Urine 150 Stool 1 Emesis 20 Hemodialysis 500 Other: Voiding Method Indwelling Catheter Indwelling Catheter Indwelling Catheter - Exam GENERAL DESCRIPTION: An elderly male lying in bed in no distress RESPIRATORY SYSTEM: Unlabored breathing , decreased breath sounds at bases HEART: S1 S2 regular rate and rhythm , ABDOMEN: Soft , no tenderness EXTREMITIES: Bilateral legs are currently wrapped up overall redness has decreased no drainage - Labs CBC & Chem 7: 08/31/21 04:29 08/31/21 04:29 Labs: Abnormal Lab Results - Last 24 Hours (Table) 08/30/21 08/30/21 Range/Units 05:41 05:41 WBC 34.41 H (4.50-10.00) X 10*3/uL RBC 3.38 L (4.40-5.60) X 10*6/uL Hgb 10.7 L (13.0-17.0) g/dL Hct 34.4 L (39.6-50.0) % MCV 101.8 H (80.0-97.0) fL MCHC 31.1 L (32.0-37.0) g/dL RDW 16.9 H (11.5-14.5) % Plt Count 103 L (140-440) X 10*3/uL MPV 9.3 L (9.5-12.2) fL Absolute Nucleated RBC 0.13 H (0.00-0.00) X 10*3/uL Immature Gran # 0.43 H (0.00-0.04) X 10*3/uL Neutrophils # 31.11 H (1.80-7.70) X 10*3/uL Lymphocytes # 0.61 L (0.90-5.00) X 10*3/uL Monocytes # 2.18 H (0.20-1.00) X 10*3/uL Eosinophils # 0.01 L (0.04-0.35) X 10*3/uL NRBC/100 WBC Diff 0.4 H (0.0-0.0) /100 WBCS BUN 43.3 H (9.0-27.0) mg/dL Creatinine 4.1 H (0.6-1.5) mg/dL Est GFR (CKD-EPI)AfAm 16.0 L (60.0-200.0) Est GFR (CKD-EPI)NonAf 13.8 L (60.0-200.0) BUN/Creatinine Ratio 10.56 L (12.00-20.00) Ratio Glucose 122 H (70-110) mg/dL C-Reactive Protein 23.30 H (0.00-0.80) mg/dL Microbiology - Last 24 Hours (Table) 08/28/21 04:49 Blood Culture Gram Stain - Preliminary Blood Blood Culture - Preliminary Staphylococcus epidermidis 08/29/21 09:30 Blood Culture - Preliminary Blood No Growth after 24 hours 08/30/21 04:30 Sputum Culture - Preliminary Sputum 08/25/21 22:20 Blood Culture - Preliminary Blood No Growth after 96 hours 08/25/21 22:07 Blood Culture - Preliminary Blood No Growth after 96 hours Assessment and Plan (1) Leukocytosis Status: Acute Code(s): D72.829 - ELEVATED WHITE BLOOD CELL COUNT, UNSPECIFIED SNOMED Code(s): 129103774 Plan: 1patient with significant elevated white count in this patient presented to hospital with increasing shortness of breath with evidence of fluid overload likely from her renal failure which is currently being investigated and the patient is started on dialysis patient did not have any fever during this admission he did have a recent history of biliary stent placement bilirubin is elevated however liver exams are normal with the source question abdominal versus lower extremity cellulitis. 2patient to continue Unasyn 3 g every 12 hours dose adjusted the kidney function 3local wound care to bilateral foot wound with Aquacel silver dressing to be changed daily 4-patient also with a positive blood culture with staph epi could be contaminated or could be related to lower extremity cellulitis, to continue with daptomycin Tony a clinical course closely Time with Patient: Less than 30
--- NOTE | 2021-08-31 15:23 | P.PN ---
Subjective Progress Note Date: 08/31/21 Principal diagnosis: leukocytosis/infection Patient is a 71-year-old male with a past medical history pertinent for COPD history of liver cancer admitted to hospital with shortness of breath this patient evidence of fluid overload diffuse swelling to lower extremity and renal failure, patient also has elevated white count. On today's evaluation that is 09/01/2019, the patient remains to be afebrile, patient is breathing comfortably on his Lanoxin, the patient denies having any chest pain minimal cough no nausea no vomiting no abdominal pain or pain to the lower extremity Objective - Vital Signs Vital signs: Vital Signs Temp 98.5 F 08/31/21 07:35 Pulse 102 H 08/31/21 08:57 Resp 19 08/31/21 08:00 BP 106/69 08/31/21 07:35 Pulse Ox 94 L 08/31/21 07:35 Intake & Output 08/30/21 08/31/21 08/31/21 18:59 06:59 18:59 Output Total 101 Balance -101 Weight 92 kg Output: Urine 100 Stool 1 Other: Voiding Method Indwelling Catheter Indwelling Catheter Indwelling Catheter - Exam GENERAL DESCRIPTION: An elderly male lying in bed in no distress RESPIRATORY SYSTEM: Unlabored breathing , decreased breath sounds at bases HEART: S1 S2 regular rate and rhythm , ABDOMEN: Soft , no tenderness EXTREMITIES: Diffuse swelling to his lower extremity and did have superficial ulceration to the bilateral feet with some clear drainage - Labs CBC & Chem 7: 08/31/21 04:29 08/31/21 04:29 Labs: Abnormal Lab Results - Last 24 Hours (Table) 08/31/21 08/31/21 Range/Units 04:29 04:29 WBC 35.77 H (4.50-10.00) X 10*3/uL RBC 3.34 L (4.40-5.60) X 10*6/uL Hgb 10.8 L (13.0-17.0) g/dL Hct 34.3 L (39.6-50.0) % MCV 102.7 H (80.0-97.0) fL MCH 32.3 H (27.0-32.0) pg MCHC 31.5 L (32.0-37.0) g/dL RDW 17.0 H (11.5-14.5) % Plt Count 89 L (140-440) X 10*3/uL Plt Count Comment DECREASED A Absolute Nucleated RBC 0.09 H (0.00-0.00) X 10*3/uL Immature Gran # 0.65 H (0.00-0.04) X 10*3/uL Neutrophils # 32.17 H (1.80-7.70) X 10*3/uL Lymphocytes # 0.57 L (0.90-5.00) X 10*3/uL Monocytes # 2.20 H (0.20-1.00) X 10*3/uL NRBC/100 WBC Diff 0.3 H (0.0-0.0) /100 WBCS Sodium 133 L (135-145) mmol/L BUN 54.5 H (9.0-27.0) mg/dL Creatinine 4.9 H (0.6-1.5) mg/dL Est GFR (CKD-EPI)AfAm 12.9 L (60.0-200.0) Est GFR (CKD-EPI)NonAf 11.1 L (60.0-200.0) BUN/Creatinine Ratio 11.12 L (12.00-20.00) Ratio Calcium 8.2 L (8.7-10.3) mg/dL Magnesium 2.5 H (1.5-2.4) mg/dL Total Bilirubin 1.90 H (0.30-1.20) mg/dL AST 41 H (14-35) U/L Alkaline Phosphatase 169 H (41-126) U/L Total Protein 4.7 L (6.2-8.2) g/dL Albumin 2.5 L (3.8-4.9) g/dL Albumin/Globulin Ratio 1.14 L (1.60-3.17) g/dL Microbiology - Last 24 Hours (Table) 08/29/21 09:30 Blood Culture - Preliminary Blood No Growth after 48 hours 08/30/21 05:41 Blood Culture - Preliminary Blood No Growth after 24 hours 08/30/21 04:30 Gram Stain - Preliminary Sputum Sputum Culture - Preliminary 08/25/21 22:20 Blood Culture - Preliminary Blood No Growth after 120 hours 08/25/21 22:07 Blood Culture - Preliminary Blood No Growth after 120 hours 08/28/21 04:49 Blood Culture Gram Stain - Preliminary Blood Blood Culture - Preliminary Staphylococcus epidermidis Assessment and Plan (1) Leukocytosis Status: Acute Code(s): D72.829 - ELEVATED WHITE BLOOD CELL COUNT, UNSPECIFIED SNOMED Code(s): 949354313 Plan: 1patient with significant elevated white count in this patient presented to hospital with increasing shortness of breath with evidence of fluid overload likely from her renal failure which is currently being investigated and the patient is started on dialysis patient did not have any fever during this admission he did have a recent history of biliary stent placement bilirubin is elevated however liver exams are normal with the source question abdominal versus lower extremity cellulitis., Patient also have a positive blood culture with staph epi, patient seemed to have some clinical improvement however the family has decided for hospice which may be appropriate in view of underlying malignancy antibiotics can be safely discontinued, and at the bedside the question were answered Time with Patient: Less than 30
[2021-08-31 16:24] VITALS: BP 82/47
--- NOTE | 2021-08-31 18:42 | P.PN ---
Subjective Progress Note Date: 08/31/21 Principal diagnosis: Renal and liver failure Patient is still very ill Platelets continue to decrease Objective - Vital Signs Vital signs: Vital Signs Temp 98.5 F 08/31/21 07:35 Pulse 102 H 08/31/21 08:57 Resp 19 08/31/21 08:00 BP 106/69 08/31/21 07:35 Pulse Ox 94 L 08/31/21 07:35 Intake & Output 08/30/21 08/31/21 08/31/21 18:59 06:59 18:59 Output Total 101 Balance -101 Weight 92 kg Output: Urine 100 Stool 1 Other: Voiding Method Indwelling Catheter Indwelling Catheter Indwelling Catheter - Exam - Constitutional Constitutional Comment(s): frail, grimacing in pain trying to reposition his backside on the bed General appearance: Present: thin - EENT Eyes: Present: scleral icterus ENT: Present: hearing grossly normal - Respiratory Respiratory: bilateral: diminished - Gastrointestinal General gastrointestinal: Present: normal bowel sounds - Integumentary Integumentary: Present: jaundiced Eccymosis on arms arms and leg - Musculoskeletal Musculoskeletal: Present: generalized weakness - Psychiatric Psychiatric: Present: A&O x's 3, appropriate affect, intact judgment & insight - Labs CBC & Chem 7: 08/31/21 04:29 08/31/21 04:29 Labs: Abnormal Lab Results - Last 24 Hours (Table) 08/31/21 08/31/21 Range/Units 04:29 04:29 WBC 35.77 H (4.50-10.00) X 10*3/uL RBC 3.34 L (4.40-5.60) X 10*6/uL Hgb 10.8 L (13.0-17.0) g/dL Hct 34.3 L (39.6-50.0) % MCV 102.7 H (80.0-97.0) fL MCH 32.3 H (27.0-32.0) pg MCHC 31.5 L (32.0-37.0) g/dL RDW 17.0 H (11.5-14.5) % Plt Count 89 L (140-440) X 10*3/uL Plt Count Comment DECREASED A Absolute Nucleated RBC 0.09 H (0.00-0.00) X 10*3/uL Immature Gran # 0.65 H (0.00-0.04) X 10*3/uL Neutrophils # 32.17 H (1.80-7.70) X 10*3/uL Lymphocytes # 0.57 L (0.90-5.00) X 10*3/uL Monocytes # 2.20 H (0.20-1.00) X 10*3/uL NRBC/100 WBC Diff 0.3 H (0.0-0.0) /100 WBCS Sodium 133 L (135-145) mmol/L BUN 54.5 H (9.0-27.0) mg/dL Creatinine 4.9 H (0.6-1.5) mg/dL Est GFR (CKD-EPI)AfAm 12.9 L (60.0-200.0) Est GFR (CKD-EPI)NonAf 11.1 L (60.0-200.0) BUN/Creatinine Ratio 11.12 L (12.00-20.00) Ratio Calcium 8.2 L (8.7-10.3) mg/dL Magnesium 2.5 H (1.5-2.4) mg/dL Total Bilirubin 1.90 H (0.30-1.20) mg/dL AST 41 H (14-35) U/L Alkaline Phosphatase 169 H (41-126) U/L Total Protein 4.7 L (6.2-8.2) g/dL Albumin 2.5 L (3.8-4.9) g/dL Albumin/Globulin Ratio 1.14 L (1.60-3.17) g/dL Microbiology - Last 24 Hours (Table) 08/29/21 09:30 Blood Culture - Preliminary Blood No Growth after 48 hours 08/30/21 05:41 Blood Culture - Preliminary Blood No Growth after 24 hours 08/30/21 04:30 Gram Stain - Preliminary Sputum Sputum Culture - Preliminary 08/25/21 22:20 Blood Culture - Preliminary Blood No Growth after 120 hours 08/25/21 22:07 Blood Culture - Preliminary Blood No Growth after 120 hours 08/28/21 04:49 Blood Culture Gram Stain - Preliminary Blood Blood Culture - Preliminary Staphylococcus epidermidis Assessment and Plan (1) Cholangiocarcinoma Narrative/Plan: - Has not begun treatment due to rapid decline performance and renal failure, undergoing dialysis and will re-evalaute Status: Acute Priority: High Code(s): C22.1 - INTRAHEPATIC BILE DUCT CARCINOMA SNOMED Code(s): 761194621 (2) Renal failure Narrative/Plan: Day 3 of Dialysis Status: Acute Priority: High Code(s): N19 - UNSPECIFIED KIDNEY FAILURE SNOMED Code(s): 12500963 (3) Acute respiratory failure with hypoxia Status: Acute Priority: High Code(s): J96.01 - ACUTE RESPIRATORY FAILURE WITH HYPOXIA SNOMED Code(s): 76965035 Plan: Continue on dialysis and daily monitoring of bloodwork Family at bedside and discussed current updates withthem Platelets decreasing, recheck coags and monitor renal function closely. Doctor attests: I performed a history and physical examination of this patient, developed impression and plan of care, discussed with dictator. I agree with dictators note, documented as a scribe.
[2021-08-31] MEDS ORDERED: MIDODRINE 5 MG TAB PO ONE (22:45)
--- NOTE | 2021-09-03 11:01 | P.DS ---
Providers Date of admission: 08/25/21 21:02 Expected date of discharge: 08/31/21 Attending physician: Joanna Bernabe Consults: 08/25/21 21:02 Consult Physician Routine Consulting Provider: Christ Giles Consult Reason/Comments: COPD Do you want consulting provider notified?: Yes Consult Physician Routine Consulting Provider: Stalin Jara Consult Reason/Comments: Liver failure, renal failure, liver cancer Do you want consulting provider notified?: Yes Consult Physician Routine Consulting Provider: Maranda Oliva Consult Reason/Comments: Renal failure Do you want consulting provider notified?: Already Contacted 08/27/21 12:21 Consult Physician Stat Consulting Provider: Sury Pinto Consult Reason/Comments: Patient needs new dialysis access Do you want consulting provider notified?: Yes 08/27/21 13:28 Consult Physician Routine Consulting Provider: Darion Maradiaga Consult Reason/Comments: Dr. Saini wanted infedctious disease consulted on this patient Do you want consulting provider notified?: Yes 08/30/21 05:42 Consult Physician Urgent Consulting Provider: Ellyn Fields Consult Reason/Comments: Frequent N/V 3-4 times a day Do you want consulting provider notified?: Yes, Notify in am Primary care physician: Christ Giles [facility] Course: 71-year-old male with a known history of COPD, hypertension, obstructive jaundice, previous history of smoking and recently diagnosed with liver cancer presents to ER with complaints of with complaints of increased shortness of breath and cough. Denies any complaints of chest pain. No fever no chills. Patient is also complaining of abdominal distention and increased recurved and bilateral worsening leg swelling and also yellowish discoloration. Patient was recently admitted to hospital in due to acute COPD exacerbation and was discharged on 06/15/2021. Patient also recently diagnosed with liver cancer and was recently seen at [facility] for biliary stent placement for obstructive jaundice. Patient was seen by oncology as well. Laboratory data showed AST 43 ALT 34 alk phos 201 and bilirubin level is 3.7 on this admission. Other laboratory data showed sodium 125 potassium 6.0 chloride 95 bicarbonate 14 BUN 114 and creatinine 7.2 WBC 21.7 hemoglobin 12.3 and platelets 244 . proBNP is 944 and albumin 3.4 Chest x-ray showed no acute cardiopulmonary process. COPD changes. EKG showed nonspecific ST-T wave changes. Patient was given calcium gluconate, D50 and insulin due to hyperkalemia. Potassium level is trending down. Patient is being continued on normal saline. A Pinto cath was placed. 08/27/2021 Patient is currently sitting in the chair. Seems to be more lethargic and confused today. Patient does have very minimal urine output NG tube fluid overload and worsening creatinine level patient is being started on dialysis. Vascular surgery was consulted for dialysis catheter access. Otherwise patient still having significant leukocytosis and is being continued on IV antibiotics for possible abdominal source versus pneumonia. ID will will be consulted. Patient does have history of liver mass and jaundice with possible primary cholangiocarcinoma. Oncology is on board. Patient is supposed to begin his first chemotherapy this week are currently on hold. Laboratory showed WBC 36.7 hemoglobin 12.1 and platelets 234 Sodium 130 potassium 5.9 chloride 89 BUN 129 creatinine 7.9 phosphorus 11.4 and procalcitonin level is 0.82. 08/28/2021 Patient is currently resting in bed. Seems lethargic and drowsy. Patient was started on hemodialysis yesterday with ultrafiltration of 1.5 L. Still having bilateral leg swelling and abdominal distention, slight improvement from yesterday. Patient is being continued antibiotics in the form of Unasyn. Cultures have been negative. Urinalysis showed large leukocyte esterase with elevated RBCs and WBCs. Laboratory showed WBC count improved to 26.6, hemoglobin 10.6 and platelets 148 sodium 135 potassium 5.1 chloride 96 bicarb is 21.1 BUN 86.20 creatinine improved to 6.3. Nephrology and pulmonary and ID is on board. Patient was complaining of pain and was given Dilaudid 0.5 mg x 1 but became very lethargic and unarousable after that. Was given a dose of Narcan. Discussed with family at bedside in detail. 08/29/2021 Patient is more awake and alert today. Feels extremely weak otherwise. Patient is being continued on hemodialysis. Bilateral leg swelling is much improved. Does have very minimal urine output. Patient is able to drink water and tolerate oral diet today. No cough or sputum production. Patient has been afebrile. Currently being continued on antibiotics in the form of Unasyn and daptomycin was added. Blood cultures positive for gram-positive cocci turned out to be staph epidermidis. Laboratory showed WBC count 34.44, hemoglobin 11.7 and platelets 142 BUN 72 and creatinine went down to 5.18. Patient has been afebrile. Pulmonary, ID, oncology and nephrology is on board. 08/30/2021 Patient is currently lying in the bed. Awake alert and oriented but lethargic and weak. Patient had hemodialysis yesterday. Did have very minimal urine output. No complaints of cough or sputum production. Pain is controlled with Tylenol as needed. Patient has been afebrile. Laboratory showed significant leukocytosis with WBC 34.41 hemoglobin 10.7 and platelets 103 Sodium 144 potassium 3.8 BUN 43.3 and creatinine 4.1 CRP 23.3. Patient is being continued antibiotics in the form of Unasyn and daptomycin. Blood cultures growing staph epidermidis. Patient is being followed by nephrology, ID and oncology. Discussed with the family at bedside in detail. 08/31/2021; patient and family decided to enroll with hospice and was dc'ed home with hospice Patient Condition at Discharge: Serious Plan - Discharge Summary Discharge Rx Participant: No New Discharge Prescriptions: New polyethylene glycoL 3350 [Miralax] 17 gm PO DAILY 30 Days #30 packet Calcium Acetate [PhosLo] 667 mg PO TID-W/MEALS 30 Days #90 tab Midodrine [ProAmatine] 10 mg PO AC-TID 30 Days #90 tab Nystatin 100,000 Unit/ml Susp [Mycostatin Oral Susp] 500,000 unit PO QID #200 ml Continue Tiotropium 18 Mcg/Puff [Spiriva] 1 cap INHALATION RT-DAILY Budesonide-Formot 160-4.5 Mcg [Symbicort 160-4.5 Mcg Inhaler] 2 puff INHALATION RT-BID Furosemide [Lasix] 20 mg PO DAILY Levofloxacin [Levaquin] 500 mg PO DAILY Discharge Medication List Tiotropium 18 Mcg/Puff [Spiriva] 1 cap INHALATION RT-DAILY 11/28/13 [History] Budesonide-Formot 160-4.5 Mcg [Symbicort 160-4.5 Mcg Inhaler] 2 puff INHALATION RT-BID 12/29/13 [History] Furosemide [Lasix] 20 mg PO DAILY 08/25/21 [History] Levofloxacin [Levaquin] 500 mg PO DAILY 08/25/21 [History] Calcium Acetate [PhosLo] 667 mg PO TID-W/MEALS 30 Days #90 tab 08/31/21 [Rx] Midodrine [ProAmatine] 10 mg PO AC-TID 30 Days #90 tab 08/31/21 [Rx] Nystatin 100,000 Unit/ml Susp [Mycostatin Oral Susp] 500,000 unit PO QID #200 ml 08/31/21 [Rx] polyethylene glycoL 3350 [Miralax] 17 gm PO DAILY 30 Days #30 packet 08/31/21 [Rx] Follow up Appointment(s)/Referral(s): Christ Giles MD [Primary Care Provider] - 1-2 days [facility] [NON-STAFF] - As Needed Discharge Disposition: HOME WITH HOSPICE
== END 2021-08-31 15:00 | disposition hospice, home (50) | DRG 682 ==
LOC: EC 19:01 → 4SSUR 21:02
PROVIDERS: ADMIT Hospitalist; ATTEND Hospitalist
PROC: 06HN33Z Insertion of Infusion Device into Left Femoral Vein, Percutaneous Approach (ICD-10-PCS; principal; 2021-08-27)
PROC: 5A1D70Z Performance of Urinary Filtration, Intermittent, Less than 6 Hours Per Day (ICD-10-PCS; 2021-08-27)
PROC: 05HB33Z Insertion of Infusion Device into Right Basilic Vein, Percutaneous Approach (ICD-10-PCS; 2021-08-28)
DX: N17.0 Acute kidney failure with tubular necrosis (principal); K83.1 Obstruction of bile duct; J96.01 Acute respiratory failure with hypoxia; N39.0 Urinary tract infection, site not specified; R18.8 Other ascites; B37.0 Candidal stomatitis; B37.89 Other sites of candidiasis; C22.1 Intrahepatic bile duct carcinoma; E87.1 Hypo-osmolality and hyponatremia; E87.2 Acidosis; J44.1 Chronic obstructive pulmonary disease with (acute) exacerbation; R78.81 Bacteremia; L89.152 Pressure ulcer of sacral region, stage 2; Z51.5 Encounter for palliative care; Z66 Do not resuscitate; K72.90 Hepatic failure, unspecified without coma; R13.10 Dysphagia, unspecified; B95.7 Other staphylococcus as the cause of diseases classified elsewhere; Z99.2 Dependence on renal dialysis; Z99.81 Dependence on supplemental oxygen; B96.89 Other specified bacterial agents as the cause of diseases classified elsewhere; D69.6 Thrombocytopenia, unspecified; E83.39 Other disorders of phosphorus metabolism; I10 Essential (primary) hypertension; E87.5 Hyperkalemia; E87.70 Fluid overload, unspecified; K21.9 Gastro-esophageal reflux disease without esophagitis; Z79.51 Long term (current) use of inhaled steroids; Z79.52 Long term (current) use of systemic steroids; Z79.899 Other long term (current) drug therapy; Z80.0 Family history of malignant neoplasm of digestive organs; Z80.1 Family history of malignant neoplasm of trachea, bronchus and lung; Z82.5 Family history of asthma and other chronic lower respiratory diseases; Z87.891 Personal history of nicotine dependence; Z98.890 Other specified postprocedural states; R11.10 Vomiting, unspecified; R19.7 Diarrhea, unspecified; Z98.42 Cataract extraction status, left eye; Z98.41 Cataract extraction status, right eye; Z96.89 Presence of other specified functional implants
CPT/HCPCS: 36410; 36415; 71045; 71046; 76705; 76770; 76937; 80048; 80053; 81001; 83605; 83735; 83880; 84100; 84132; 84145; 85025; 85610; 85730; 86140; 86704; 86706; 87040; 87070; 87205; 87340; 90935; 93005; 94640; 94760; 96365; 96375; 99291